=== PATIENT | male | born 1935 | race American Indian/Alaskan Native ===

== ENCOUNTER 2019-04-24 15:17 | Inpatient (IN) | payer OTHER ==
[2019-04-25] MEDS ORDERED: DEXTROSE 50% IN WATER (25GM) 50 ML SYRINGE IV PRN (22:18)
[2019-04-25] MEDS ORDERED: ACETAMINOPHEN 325 MG TAB PO PRN (22:18)
[2019-04-25] MEDS ORDERED: MAGNESIUM HYDROXIDE (MOM) ORAL LIQD UDC PO PRN (22:18)
[2019-04-25] MEDS ORDERED: ONDANSETRON 4 MG/2 ML INJ IV PRN (22:18)
[2019-04-25] MEDS ORDERED: SODIUM CHLORIDE 0.9% 1000 ML 1,000 ML IV SCH (22:30)
--- NOTE | 2019-04-25 23:38 | History and Physical Report ---
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 He has been transferred from [facility] after presenting to the facility with hematuria. Patient is said to be visiting family here from [place] and had been hospitalized in [place] 2 weeks prior to coming here. 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 He has had 3 sessions of hemodialysis at [facility] and his creatinine was about 2.6 as of 04/01/2019. He had presented with persistent hematuria and had undergone bladder irrigation and cystoscopy. Patient has dementia and could not give any good history most of the history was gotten from records sent from [facility] family members were not available during this history and physical. Past History Past Medical History: arthritis, diabetes, hypertension Social history: no significant social history Family history: no significant family history Medications and Allergies Active Meds: Active Medications Acetaminophen (Tylenol) 650 mg PO Q4H PRN PRN Reason: Pain MILD(1-3)/Fever >100.5/CARDENAS Dextrose (D50w (25gm) Syringe) 50 ml IV Q30MIN PRN; Protocol PRN Reason: Hypoglycemia Sodium Chloride (Nacl 0.9% 1000 Ml) 1,000 mls @ 100 mls/hr IV DIRECT FELIPE Magnesium Hydroxide (Milk Of Magnesia) 30 ml PO Q4H PRN PRN Reason: Constipation Morphine Sulfate (Morphine) 2 mg IV Q4H PRN PRN Reason: Pain, Moderate (4-6) Ondansetron HCl (Zofran) 4 mg IV Q8H PRN PRN Reason: Nausea And Vomiting Sodium Chloride (Sodium Chloride Flush Syringe 10 Ml) 10 ml IV BID FELIPE Sodium Chloride (Sodium Chloride Flush Syringe 10 Ml) 10 ml IV PRN PRN PRN Reason: LINE FLUSH Review of Systems Genitourinary Male: hematuria Exam - Constitutional General appearance: Present: no acute distress - EENT Eyes: Present: PERRL, EOM intact ENT: hearing intact, clear oral mucosa, dentition normal - Neck Neck: Present: supple, normal ROM - Respiratory Respiratory effort: normal Respiratory: bilateral: CTA - Cardiovascular Rhythm: regular Heart Sounds: Present: S1 & S2 - Extremities Extremities: no ischemia, pulses intact, pulses symmetrical, No edema Peripheral Pulses: within normal limits - Abdominal General gastrointestinal: Present: soft, non-tender, non-distended Male genitourinary: Present: normal (Mirza catheter in place) - Integumentary Integumentary: Present: clear, warm, dry - Musculoskeletal Musculoskeletal: strength equal bilaterally - Psychiatric Psychiatric: other (Appears confused) - Neurologic Neurologic: CNII-XII intact Assessment and Plan - Patient Problems (1) Hematuria Current Visit: Yes Status: Acute Plan to address problem: Patient has a Mirza catheter in place. Will irrigate bladder as needed. Patient will need urology evaluation and recommendation. (2) Prostate cancer Current Visit: Yes Status: Acute Plan to address problem: Patient has history of recurrent metastatic prostate cancer (3) Hypertension Current Visit: Yes Status: Acute Plan to address problem: Blood pressure stable we will continue routine home medications and monitor vital signs. (4) Diabetes mellitus Current Visit: Yes Status: Acute Plan to address problem: We will monitor Accu-Cheks. (5) Chronic kidney disease Current Visit: Yes Status: Acute Plan to address problem: Will monitor BUN and creatinine. Will consider nephrology input prior to discharge. (6) Full code status Current Visit: Yes Status: Acute
[2019-04-26 06:31] LABS: Hematocrit 27.5 % (35.5-45.6); Hemoglobin 8.8 gm/dl (11.8-15.2); Mean Corpuscular HGB Conc 32 % (32-34); Mean Corpuscular Volume 74 fl (84-94); Platelet Count 376 K/mm3 (140-440); Red Blood Count 3.73 M/mm3 (3.65-5.03)
[2019-04-26 06:35] LABS: Red Cell Distribution Width 26.5 % (13.2-15.2)
[2019-04-26 06:47] LABS: INR 1.59 (0.87-1.13)
[2019-04-26 06:48] LABS: Calcium 8.9 mg/dL (8.4-10.2); Partial Thromboplastin Time 39.2 Sec. (24.2-36.6)
[2019-04-26 08:55] LABS: Basophils % (Manual) 0 % (0.0-1.8); Total Cells Counted 100
[2019-04-26 08:56] LABS: Anisocytosis 3+; Hypochromasia 1+; Platelet Estimate Consistent w Auto; Target Cells Rare
[2019-04-26] MEDS: MORPHINE 2 MG/1 ML INJ IV PRN ×2 (11:12→22:14)
--- NOTE | 2019-04-26 12:49 | Consultation ---
History of Present Illness - Reason for Consult Consult date: 04/26/19 Sepsis Requesting physician: VERNON DARBY - History of Present Illness The patient is an 83-year-old male originally from [place] with history of dementia, advanced CKD had dialysis twice while in [place], metastatic prostate cancer, hypertension, failure to thrive was also on TPN while in [place] came in to the [facility] on 04/21/2019. Next day, family noticed hematuria and hence he was taken to [facility] and was hospitalized on 04/22/2019. Chest x-ray showed multiple cavitary lesions concerning for possible septic emboli versus other infectious etiology including atypical infections: Fungus and TB. Lab showed leukocytosis of 16.5K and creatinine elevation to 5.9. CT head did not show any lesions. His TPN related R subclavian central line was removed at [place], tip culture grew CoNS, blood cultures were negative for bacteria and fungi. Pt is nonverbal at this time and unable to provide history. History obtained from extensive chart review from outside records and talking to the patient's son at bedside. Review of Systems: non verbal, unable to provide history or ROS Past History Past Medical History: arthritis, diabetes, hypertension Social history: no significant social history Family history: no significant family history Medications and Allergies Allergies Allergy/AdvReac Type Severity Reaction Status Date / Time No Known Allergies Allergy Verified 04/26/19 03:55 Home Medications Medication Instructions Recorded Confirmed Last Taken Type Abiraterone Acetate (Nf) 1,000 mg PO DAILY 04/26/19 04/26/19 04/20/19 History Active Meds: Active Medications Acetaminophen (Tylenol) 650 mg PO Q4H PRN PRN Reason: Pain MILD(1-3)/Fever >100.5/CARDENAS Dextrose (D50w (25gm) Syringe) 50 ml IV Q30MIN PRN; Protocol PRN Reason: Hypoglycemia Sodium Chloride (Nacl 0.9% 1000 Ml) 1,000 mls @ 100 mls/hr IV DIRECT FELIPE Last Admin: 04/26/19 11:07 Dose: 100 mls/hr Documented by: Magnesium Hydroxide (Milk Of Magnesia) 30 ml PO Q4H PRN PRN Reason: Constipation Morphine Sulfate (Morphine) 2 mg IV Q4H PRN PRN Reason: Pain, Moderate (4-6) Last Admin: 04/26/19 11:12 Dose: 2 mg Documented by: Ondansetron HCl (Zofran) 4 mg IV Q8H PRN PRN Reason: Nausea And Vomiting Sodium Chloride (Sodium Chloride Flush Syringe 10 Ml) 10 ml IV BID FELIPE Last Admin: 04/26/19 11:22 Dose: 10 ml Documented by: Sodium Chloride (Sodium Chloride Flush Syringe 10 Ml) 10 ml IV PRN PRN PRN Reason: LINE FLUSH Physical Examination - Physical Exam Narrative exam: Physical Exam: Constitutional: drowsy, non verbal Head, Ears, Nose: Normocephalic, atraumatic. External ears, nose normal Eyes: Conjunctivae/corneas clear. No icterus. No ptosis. Neck: Supple, no meningeal signs Oral: dentition poor, no thrush Cardiovascular: S1, S2 normal Respiratory: Good air entry, clear to auscultation bilaterally GI: Soft, non-tender; bowel sounds normal. No peritoneal signs : Mirza + Musculoskeletal: No pedal edema, no cyanosis. Skin: No rash or abscess Hem/Lymphatic: No palpable cervical or supraclavicular nodes. No lymphangitis Psych: Mood ok. Affect normal Neurological: Awake, alert, oriented. No gross abnormality - Constitutional Vitals: Vital Signs Temp Pulse Resp BP Pulse Ox 97.8 F 106 H 18 101/51 99 04/26/19 05:05 04/26/19 00:32 04/26/19 05:05 04/26/19 05:05 04/26/19 00:32 Temperature -Last 24 Hours Temperature 97.8 F Results - Labs CBC & Chem 7: 04/26/19 05:49 04/26/19 05:49 Labs: Abnormal lab results 04/26/19 04/26/19 04/26/19 Range/Units 05:49 05:49 05:49 WBC 16.3 H (4.5-11.0) K/mm3 Hgb 8.8 L (11.8-15.2) gm/dl Hct 27.5 L (35.5-45.6) % MCV 74 L (84-94) fl MCH 24 L (28-32) pg RDW 26.5 H (13.2-15.2) % Seg Neuts % (Manual) 83.0 H (40.0-70.0) % Lymphocytes % (Manual) 11.0 L (13.4-35.0) % Seg Neutrophils # Man 13.5 H (1.8-7.7) K/mm3 PT 19.2 H (12.2-14.9) Sec. INR 1.59 H (0.87-1.13) APTT 39.2 H (24.2-36.6) Sec. Sodium 156 H (137-145) mmol/L Potassium 3.4 L (3.6-5.0) mmol/L Chloride 114.9 H (98-107) mmol/L Carbon Dioxide 14 L (22-30) mmol/L BUN 100 H (9-20) mg/dL Creatinine 7.7 H (0.8-1.5) mg/dL Assessment and Plan Cultures at [place]: 04/22/2019 Blood culture: No growth 04/22/2019 fungal blood culture: No growth 04/23/2019 Blood culture: No growth 04/23/2019 catheter tip culture: 15 or more colonies of Staphylococcus hemolyticus 04/23/2019 urine culture: No growth 04/22/2019 serum cryptococcal antigen: Negative Cultures here: None yet A/P: 83-year-old male originally from [facility] with history of dementia, advanced CKD had dialysis twice while in [facility], metastatic prostate cancer, hypertension, failure to thrive was also on TPN while in [facility] came in to the [facility] on 04/21/2019. Next day, family noticed hematuria and hence he was taken to [facility] and was hospitalized on 04/22/2019, transfered here on 03/2019. ID consulted for ?sepsis. 1) Multiple cavitary lung nodules: ?septic emboli v/s infectious v/s mets. Of note, patient had a TPN central line (R subclavian) which was removed while at [place]. TTE at [place] unremarkable. Blood cultures also negative. 2) Acute v/s subacute progressive encephalopathy: has baseline dementia. Multiple etiologies possible. Sodium is high, creatinine also high. 3) Leucocytosis: persistent, does not seem to have responded to broad spectrum antibiotic therapy 4) Acute renal failure on CKD: ?component of obstructive uropathy as well as medical renal disease. Apparently was dialyzed twice in [facility]. 5) Metastatic prostate cancer Recs: repeat blood and urine cultures here empiric renally adjusted Cefepime and Vancomycin continue airborne isolation TB IGRA ordered may need pulmonary to do a bronch to rule out TB since patient is unlikely to produce any sputums MRI brain without contrast CXR ordered Jaime Bowens MD, FACP [facility] C: [phone] O: [phone] F: [phone]
[2019-04-26] MEDS ORDERED: VANCOMYCIN PHARMACY TO DOSE IV SCH (13:00)
--- NOTE | 2019-04-26 14:11 | Consultation ---
History of Present Illness - Reason for Consult acute renal failure - History of Present Illness This is an 83-year-old [place] male with a past medical history significant for metastatic prostate cancer hypertension and chronic kidney disease in the setting of obstructive uropathy who presented to the emergency department as a transfer from [place]. Nephrology is being asked to see patient secondary to acute on chronic kidney disease. As mentioned he does have a history of obstructive uropathy and had recent CT scan confirming moderate to severe bilateral hydronephrosis. Per patient's son who is the historian at this time he stated that the plan at [place] was to undergo an nephrostomy tube placement bilaterally in order for relief of the aforementioned bilateral severe hydronephrosis. Per notes that we have here it seems that his baseline creatinine is about 2.6 back in March 2019. Patient is a very poor historian and is significantly cachectic and with severe malnutrition and failure to thrive. The majority of the history was obtained by review of the medical records along with discussions with his son who is at bedside at this time. There have also been noticing recurrent gross hematuria that is likely in the setting of metastatic prostate cancer with evidence of metastasis to the bladder as well along with bone. Patient has an indwelling Mirza at this time but the Mirza is showing blood-tinged urine. Per patient's son he does not remember them doing a Arnold drip while at the previous hospital. He did have a previous right-sided PICC line that was removed in the setting of worsening leukocytosis and fever. The tip of the catheter had been growing coagulase-negative staph. This PICC line was initially placed secondary to TPN needs. Early on IV fluids here in our hospital. Past History Past Medical History: arthritis, diabetes, hypertension Social history: no significant social history Family history: no significant family history Medications and Allergies Allergies Allergy/AdvReac Type Severity Reaction Status Date / Time No Known Allergies Allergy Verified 04/26/19 03:55 Home Medications Medication Instructions Recorded Confirmed Last Taken Type Abiraterone Acetate (Nf) 1,000 mg PO DAILY 04/26/19 04/26/19 04/20/19 History B Complex 1 tab PO BID 04/26/19 04/26/19 Unknown History Cefepime 1 gram IV Q24H 04/26/19 04/26/19 Unknown History Flomax 0.4 mg PO DAILY 04/26/19 04/26/19 Unknown History Lactated Ringers 100 ml IV CONT 04/26/19 04/26/19 Unknown History Lidocaine 1 patch TD Q24H 04/26/19 04/26/19 Unknown History Metronidazole 500 mg IV Q8H 04/26/19 04/26/19 Unknown History Tylenol 650 mg PO PRN 04/26/19 04/26/19 Unknown History Tylenol 650 mg IA PRN 04/26/19 04/26/19 Unknown History Active Meds: Active Medications Acetaminophen (Tylenol) 650 mg PO Q4H PRN PRN Reason: Pain MILD(1-3)/Fever >100.5/CARDENAS Dextrose (D50w (25gm) Syringe) 50 ml IV Q30MIN PRN; Protocol PRN Reason: Hypoglycemia Sodium Chloride (Nacl 0.9% 1000 Ml) 1,000 mls @ 100 mls/hr IV DIRECT FELIPE Last Admin: 04/26/19 11:07 Dose: 100 mls/hr Documented by: Cefepime HCl (Cefepime/Ns 1 Gm/100 Ml) 1 gm in 100 mls @ 200 mls/hr IV Q24HR@1600 FELIPE; Protocol Vancomycin HCl 1,250 mg/ (Sodium Chloride) 275 mls @ 166.667 mls/hr IV ONCE ONE Stop: 04/26/19 16:08 Magnesium Hydroxide (Milk Of Magnesia) 30 ml PO Q4H PRN PRN Reason: Constipation Morphine Sulfate (Morphine) 2 mg IV Q4H PRN PRN Reason: Pain, Moderate (4-6) Last Admin: 04/26/19 11:12 Dose: 2 mg Documented by: Ondansetron HCl (Zofran) 4 mg IV Q8H PRN PRN Reason: Nausea And Vomiting Sodium Chloride (Sodium Chloride Flush Syringe 10 Ml) 10 ml IV BID FELIPE Last Admin: 04/26/19 11:22 Dose: 10 ml Documented by: Sodium Chloride (Sodium Chloride Flush Syringe 10 Ml) 10 ml IV PRN PRN PRN Reason: LINE FLUSH Review of Systems ROS unobtainable: due to mental status Exam - Vital Signs Vital signs: Vital Signs Resp Pulse Ox 20 95 04/26/19 00:20 04/26/19 00:20 - General Appearance General appearance: cachectic, chronically ill, frail EENT: ATNC Neck: Present: neck supple, trachea midline Respiratory: Clear to Ascultation Heart: regular, S1S2 Gastrointestinal: Present: normal Integumentary: no rash Neurologic: confused, disoriented Musculoskeletal: Present: deferred Psychiatric: other (lethargic) Results - Lab Results 04/26/19 05:49 04/26/19 05:49 Most recent lab results Calcium 8.9 mg/dL (8.4-10.2) 04/26/19 05:49 Assessment and Plan - Patient Problems (1) Acute kidney injury superimposed on chronic kidney disease Current Visit: Yes Status: Acute Plan to address problem: Likely in the setting of obstructive uropathy combined with significant prerenal injury in this cachectic elderly individual with significant malnutrition and failure to thrive. Continue with current plan which includes adequate IV fluid hydration, avoidance of nephrotoxins, and maintenance of map above 65 mmHg. Discussed with our primary attending and my plan would be to suggest interventional radiology consultation for likely need of bilateral nephrostomy tube placement in order to decompress the aforementioned severe bilateral hydronephrosis. My hope is that this will help with improving renal clearance so as to be able to avoid hemodialysis in this patient. 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 Recommend interventional radiology consultation for placement of bilateral nephrostomy tubes. (3) Hypernatremia Current Visit: Yes Status: Acute Plan to address problem: Likely as a consequence of free water deficit and dehydration. Continue with current IV fluid hydration. Will follow up with next set of labs tomorrow morning. 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 Continue to monitor closely. May benefit from urology consultation. (5) Adult failure to thrive Current Visit: Yes Status: Acute Plan to address problem: Recommend to have dietitian see patient and evaluate. Was previously on TPN. Continue with current IV fluid hydration.
[2019-04-26] MEDS ORDERED: VANCOMYCIN 1,250 MG in SODIUM CHLORIDE 0.9% 250ML 250 ML IV ONE (14:30)
[2019-04-26] MEDS ORDERED: METRONIDAZOLE 500 MG IV SCH (14:45)
[2019-04-26] MEDS ORDERED: LACTATED RINGERS IV SCH (14:45)
[2019-04-26] MEDS ORDERED: LIDOCAINE TD SCH (14:45)
--- NOTE | 2019-04-26 15:04 | XRay Report ---
CHEST 1 VIEW INDICATION: cavitary pneumonia. COMPARISON: None FINDINGS: Support devices: None. Heart: Within normal limits. Lungs/Pleura: There are mild chronic interstitial changes throughout both lungs. There is subtle airs pace opacity in the left midlung laterally which could represent an early infiltrate. No cavitary pul monary lesion is appreciated. Calcified granuloma in the mid right lung is noted. No pleural effusion or pneumothorax is appreciated. Additional findings: Osteopenia. There also appears to be soft tissue ulceration in the left axillary soft tissues. IMPRESSION: Chronic interstitial changes. Questionable left lung opacity as described. Suggestion of skin ulcera tion in the left axillary region, correlate with the patient. Consider further evaluation with CT [address] with contrast if needed. Signer Name: Bi Sandra Jr, MD Signed: 04/26/2019 3:00 PM Workstation Name: [id number]
[2019-04-26] MEDS ORDERED: LACTATED RINGERS 1,000 ML IV SCH (16:00)
[2019-04-26] MEDS: CEFEPIME/NS 1 GM/100 ML 1 GM/100 ML BAG IV SCH (16:41)
[2019-04-26] MEDS: metroNIDAZOLE/NS 500 MG/100 ML 500 MG/100 ML BAG IV SCH ×2 (16:42→22:14)
[2019-04-26] MEDS: ACETATE PO SCH (17:02)
[2019-04-26] MEDS: ABIRATERONE PO SCH (17:02)
--- NOTE | 2019-04-26 17:23 | Progress Note ---
Assessment and Plan Assessment and plan: Patient is a 83-year-old male originally from [facility] with history of dementia, advanced CKD had dialysis twice while in [place], metastatic prostate cancer, hypertension, failure to thrive was also on TPN while in [place] came in to the [facility] on 04/21/2019. Next day, family noticed hematuria and hence he was taken to [facility] and was hospitalized on 04/22/2019, transferred here on 04/25/2019 secondary to Enviromental crisis at [place] forcing the facility to transfer all inpatients. ID consulted for ?sepsis. cxr: 04/26/19 Chronic interstitial changes. Questionable left lung opacity as described. Suggestion of skin ulceration in the left axillary region, correlate with the patient. Consider further evaluation with CT chest with contrast if needed. * Review of records from [place] shows that the patient had a 1.0 x 1.1 cm right thyroid nodule. There is also on imaging studies including CT of the chest multiple bilateral scattered ill-defined pulmonary nodules surrounded by groundglass opacities many of the nodules are cavitary component it was discussed that the findings were concerning for multifocal infection possibly secondary to septic emboli from cavitary organism including atypical and fungal organisms. * Work-up at [place] included vancomycin which was started on 04 22 with blood culture drawn prior to initiation of the antibiotics subsequently antibiotics was changed from Zosyn to cefepime and Flagyl on 04 22 due to renal function ab normalities. Patient remained n.p.o. for speech evaluation due to aspiration precautions and was placed on airborne precaution. * Creatinine was also noted to be elevated at 5.9 with prior creatinine being 2.6 in March 2019 there was concern of possible obstructive uropathy from prostate malignancy along with breathing renal versus ATN from poor p.o. intake. * Hematuria which was noted was thought to be secondary to prostate cancer * Elevated alk phos was also noted concerning for mets to the bone * He did have a previous right-sided PICC line that was removed in the setting of worsening leukocytosis and fever. The tip of the catheter had been growing coagulase-negative staph. This PICC line was initially placed secondary to TPN needs. Early on IV fluids here in our hospital. Sepsis: POA- Continue abx therapy and ID input at this time Multiple cavitary lung nodules: ?septic emboli v/s infectious v/s mets. DM with Hyperglycemia Hypernatremia Hypokalemia Acute v/s subacute progressive encephalopathy: has baseline dementia. Leukocytosis Acute renal failure on CKD Obstructive uropathy Metastatic prostate cancer/Gross Hematuria Failure to thrive Generalized body pain Plan Continue supportive care Discussed poor prognosis with son Pulmonary, ID, Nephrology consulted continue empiric antibiotic, place patient about isolation, may obtain pulmonary consultation. Will follow AFB cultures from [facility] Continue to monitor Awaiting Brain MRI IR also consulted for evaluation for possible Nephrostomy tube Gynecology Teacher consult Pain control Will consult Oncologist, Urology outpatient dvt/gi prophy History Interval history: Patient seen and examined, very lethargic, warm to the touch, moans, encephalopathic, but no gross shortness of breath Hospitalist Physical - Physical exam Narrative exam: VITAL SIGNS: Reviewed. GENERAL: The patient appears chronically ill, encephalopathic, cachectic moans and groans., Vital signs as documented. HEAD: No signs of head trauma. EYES: Pupils are equal. Extraocular motions intact. EARS: Hearing grossly intact. MOUTH: Oropharynx is normal. NECK: No adenopathy, no JVD. CHEST: Chest with clear breath sounds bilaterally. No wheezes, rales, or rhonchi. CARDIAC: Regular rate and rhythm. S1 and S2, without murmurs, gallops, or rubs. VASCULAR: No Edema. Peripheral pulses normal and equal in all extremities. ABDOMEN: Soft, non tender and non distended. No rebound or guarding, and no masses palpated. Bowel Sounds normal. MUSCULOSKELETAL: Good range of motion of all major joints. Extremities without clubbing, cyanosis or edema. NEUROLOGIC EXAM: Disoriented awake not following any commands. PSYCHIATRIC: Mood normal. SKIN: Warm to the touch, Mirza catheter in place, detail exam as documented in skin assessment - Constitutional Vitals: Temp Pulse Resp BP Pulse Ox 97.9 F 111 H 20 129/63 95 04/26/19 12:42 04/26/19 12:42 04/26/19 12:42 04/26/19 12:42 04/26/19 12:42 General appearance: Present: no acute distress Results - Labs CBC & Chem 7: 04/26/19 05:49 04/26/19 05:49 Labs: Laboratory Last Values WBC 16.3 K/mm3 (4.5-11.0) H 04/26/19 05:49 RBC 3.73 M/mm3 (3.65-5.03) 04/26/19 05:49 Hgb 8.8 gm/dl (11.8-15.2) L 04/26/19 05:49 Hct 27.5 % (35.5-45.6) L 04/26/19 05:49 MCV 74 fl (84-94) L 04/26/19 05:49 MCH 24 pg (28-32) L 04/26/19 05:49 MCHC 32 % (32-34) 04/26/19 05:49 RDW 26.5 % (13.2-15.2) H 04/26/19 05:49 Plt Count 376 K/mm3 (140-440) 04/26/19 05:49 Add Manual Diff Complete 04/26/19 05:49 Total Counted 100 04/26/19 05:49 Seg Neuts % (Manual) 83.0 % (40.0-70.0) H 04/26/19 05:49 Band Neutrophils % 0 % 04/26/19 05:49 Lymphocytes % (Manual) 11.0 % (13.4-35.0) L 04/26/19 05:49 Reactive Lymphs % (Man) 0 % 04/26/19 05:49 Monocytes % (Manual) 5.0 % (0.0-7.3) 04/26/19 05:49 Eosinophils % (Manual) 1.0 % (0.0-4.3) 04/26/19 05:49 Basophils % (Manual) 0 % (0.0-1.8) 04/26/19 05:49 Metamyelocytes % 0 % 04/26/19 05:49 Myelocytes % 0 % 04/26/19 05:49 Promyelocytes % 0 % 04/26/19 05:49 Blast Cells % 0 % 04/26/19 05:49 Nucleated RBC % Not Reportable 04/26/19 05:49 Seg Neutrophils # Man 13.5 K/mm3 (1.8-7.7) H 04/26/19 05:49 Band Neutrophils # 0.0 K/mm3 04/26/19 05:49 Lymphocytes # (Manual) 1.8 K/mm3 (1.2-5.4) 04/26/19 05:49 Abs React Lymphs (Man) 0.0 K/mm3 04/26/19 05:49 Monocytes # (Manual) 0.8 K/mm3 (0.0-0.8) 04/26/19 05:49 Eosinophils # (Manual) 0.2 K/mm3 (0.0-0.4) 04/26/19 05:49 Basophils # (Manual) 0.0 K/mm3 (0.0-0.1) 04/26/19 05:49 Metamyelocytes # 0.0 K/mm3 04/26/19 05:49 Myelocytes # 0.0 K/mm3 04/26/19 05:49 Promyelocytes # 0.0 K/mm3 04/26/19 05:49 Blast Cells # 0.0 K/mm3 04/26/19 05:49 WBC Morphology Not Reportable 04/26/19 05:49 Hypersegmented Neuts Not Reportable 04/26/19 05:49 Hyposegmented Neuts Not Reportable 04/26/19 05:49 Hypogranular Neuts Not Reportable 04/26/19 05:49 Smudge Cells Not Reportable 04/26/19 05:49 Toxic Granulation Not Reportable 04/26/19 05:49 Toxic Vacuolation Not Reportable 04/26/19 05:49 Dohle Bodies Not Reportable 04/26/19 05:49 Pelger-Huet Anomaly Not Reportable 04/26/19 05:49 Félix Rods Not Reportable 04/26/19 05:49 Platelet Estimate Consistent w auto 04/26/19 05:49 Clumped Platelets Not Reportable 04/26/19 05:49 Plt Clumps, EDTA Not Reportable 04/26/19 05:49 Large Platelets Not Reportable 04/26/19 05:49 Giant Platelets Not Reportable 04/26/19 05:49 Platelet Satelliting Not Reportable 04/26/19 05:49 Plt Morphology Comment Not Reportable 04/26/19 05:49 RBC Morphology Not Reportable 04/26/19 05:49 Dimorphic RBCs Not Reportable 04/26/19 05:49 Polychromasia Not Reportable 04/26/19 05:49 Hypochromasia 1+ 04/26/19 05:49 Poikilocytosis Not Reportable 04/26/19 05:49 Anisocytosis 3+ 04/26/19 05:49 Microcytosis 1+ 04/26/19 05:49 Macrocytosis Not Reportable 04/26/19 05:49 Spherocytes Not Reportable 04/26/19 05:49 Pappenheimer Bodies Not Reportable 04/26/19 05:49 Sickle Cells Not Reportable 04/26/19 05:49 Target Cells Rare 04/26/19 05:49 Tear Drop Cells Not Reportable 04/26/19 05:49 Ovalocytes Not Reportable 04/26/19 05:49 Helmet Cells Not Reportable 04/26/19 05:49 Williamson-Van Meter Bodies Not Reportable 04/26/19 05:49 Alden Rings Not Reportable 04/26/19 05:49 [place] Cells Not Reportable 04/26/19 05:49 Bite Cells Not Reportable 04/26/19 05:49 Crenated Cell Not Reportable 04/26/19 05:49 Elliptocytes Not Reportable 04/26/19 05:49 Acanthocytes (Spur) Not Reportable 04/26/19 05:49 Rouleaux Not Reportable 04/26/19 05:49 Hemoglobin C Crystals Not Reportable 04/26/19 05:49 Schistocytes Not Reportable 04/26/19 05:49 Malaria parasites Not Reportable 04/26/19 05:49 Tayo Bodies Not Reportable 04/26/19 05:49 Hem Pathologist Commnt No 04/26/19 05:49 PT 19.2 Sec. (12.2-14.9) H 04/26/19 05:49 INR 1.59 (0.87-1.13) H 04/26/19 05:49 APTT 39.2 Sec. (24.2-36.6) H 04/26/19 05:49 Sodium 156 mmol/L (137-145) H 04/26/19 05:49 Potassium 3.4 mmol/L (3.6-5.0) L 04/26/19 05:49 Chloride 114.9 mmol/L (98-107) H 04/26/19 05:49 Carbon Dioxide 14 mmol/L (22-30) L 04/26/19 05:49 Anion Gap 31 mmol/L 04/26/19 05:49 BUN 100 mg/dL (9-20) H 04/26/19 05:49 Creatinine 7.7 mg/dL (0.8-1.5) H 04/26/19 05:49 Estimated GFR 8 ml/min 04/26/19 05:49 BUN/Creatinine Ratio 13 % 04/26/19 05:49 Glucose 98 mg/dL (75-100) 04/26/19 05:49 POC Glucose 97 (70-105) 04/26/19 16:32 Calcium 8.9 mg/dL (8.4-10.2) 04/26/19 05:49 Active Medications - Current Medications Current Medications: Generic Name Dose Route Start Last Admin Trade Name Freq PRN Reason Stop Dose Admin Acetaminophen 650 mg 04/25/19 22:18 Tylenol PO Q4H PRN Pain MILD(1-3)/Fever >100.5/CARDENAS Dextrose 50 ml 04/25/19 22:18 D50w (25gm) Syringe IV Q30MIN PRN Hypoglycemia Protocol Cefepime HCl 1 gm in 100 mls @ 200 mls/hr 04/26/19 15:00 04/26/19 16:41 Cefepime/Ns 1 Gm/100 Ml IV 200 mls/hr Q24HR@1600 FELIPE Administration Protocol Metronidazole 500 mg in 100 mls @ 100 mls/hr 04/26/19 15:00 04/26/19 16:42 Flagyl 500 Mg/100 Ml IV 100 mls/hr Q8HR FELIPE Administration Lactated Ringer's 1,000 mls @ 100 mls/hr 04/26/19 16:00 Lactated Ringers IV DIRECT FELIPE Lidocaine 1 each 04/27/19 10:00 Lidoderm 5% TD QDAY FELIPE Magnesium Hydroxide 30 ml 04/25/19 22:18 Milk Of Magnesia PO Q4H PRN Constipation Morphine Sulfate 2 mg 04/25/19 22:18 04/26/19 11:12 Morphine IV 2 mg Q4H PRN Administration Pain, Moderate (4-6) Ondansetron HCl 4 mg 04/25/19 22:18 Zofran IV Q8H PRN Nausea And Vomiting Sodium Chloride 10 ml 04/26/19 10:00 04/26/19 11:22 Sodium Chloride Flush Syringe 10 Ml IV 10 ml BID FELIPE Administration Sodium Chloride 10 ml 04/25/19 22:18 Sodium Chloride Flush Syringe 10 Ml IV PRN PRN LINE FLUSH Tamsulosin HCl 0.4 mg 04/26/19 18:00 Flomax PO QPM FELIPE Vitamin B Complex/Vitamin C 1 each 04/26/19 22:00 Allbee With C PO BID FELIPE Nutrition/Malnutrition Assess - Dietary Evaluation Nutrition/Malnutrition Findings: Nutrition Notes Start: 04/26/19 10:43 Freq: Status: Active Protocol: Document 04/26/19 10:43 CT (Rec: 04/26/19 11:26 CT [id number]) Co-Sign 04/26/19 10:43 LP Nutrition Notes Need for Assessment generated from: wrister,MST,Low BMI Initial or Follow up Assessment Current Diagnosis CKD(stage I-IV),Diabetes, Hypertension Other Pertinent Diagnosis prostate cancer, hematuria, arthritis, dementia, poss TB Current Diet cardiac/consistent CHO Labs/Tests Na 156 K 3.4 Cl 114.9 BUN 100 Cr 7.7 Pertinent Medications NS 100 ml/hr Height 6 ft 3 in Weight 63 kg Usual Body Weight 81.647 kg [place] Body Weight (kg) 89.09 BMI 17.3 Intake Prior to Admission Poor Weight change and time frame 22.8% within 6 months Weight Status Underweight Subjective/Other Information Pt is on airbornne precautions d/t poss TB. Called room and pt family member reported that pt UBW is 180 lbs and that the pt has lost around 40 lbs over a 6 month time frame . 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 Pt family member stated that the pt has issues swallowing. Called RN to order speech consult. Told pt family member that we will order Ensure for pt and a mechanical soft diet until speech consult. 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 No Is Patient Ambulatory and/or Out of Bed No REE-([facility]-confined to bed) 1694.064 Kcal/Kg value to use for calculation 35 Approximate Energy Requirements Using 2205 kcal/Kg Calculation Used for Recommendations Kcal/kg Additional Notes Protein needs: 76-95g/kg/day ( 1.2-1.5 g/kg/day) Fluid needs: 1 ml/kcal/day Nutrition Intervention Change Diet Order: Add mechanical soft modification to cardiac/ consistent CHO Add Supplement/Snack (indicate name/kcal Add Ensure BID any flavor /protein ) Provides kCal: 700 Provides Protein (gm) 40 Goal #1 Meet >75% of energy and protein needs Goal #2 wt gain/maintenance Anticipated Discharge Needs: unable to determine at this time Follow-Up By: 04/30/19 Additional Comments Follow up for SOCIAL MEDIA SPECIALIST recommendations and PO/ONS intakes
--- NOTE | 2019-04-26 18:01 | Event Note ---
Date: 04/26/19 Consulted for possible nephrostomy tube. Patient was transferred due to issues at [facility], although none of his CDs were transferred with him. Will need to obtain another CT of the abdomen and pelvis without contrast. Will make patient NPO after MN except sips of water with meds. Given underlying metastatic prostate cancer with dementia, ?hospice patient? Will see patient tomorrow.
[2019-04-26] MEDS: TAMSULOSIN 0.4 MG CAP PO SCH (18:36)
[2019-04-26] MEDS ORDERED: B COMPLEX PO SCH (22:00)
[2019-04-26] MEDS: B COMPLEX W/VITAMIN C TAB PO SCH (22:16)
[2019-04-27 05:34] LABS: Hematocrit 25.4 % (35.5-45.6); Hemoglobin 7.9 gm/dl (11.8-15.2); Mean Corpuscular HGB Conc 31 % (32-34); Mean Corpuscular Volume 74 fl (84-94); Platelet Count 358 K/mm3 (140-440); Red Blood Count 3.44 M/mm3 (3.65-5.03)
[2019-04-27 05:36] LABS: Red Cell Distribution Width 26.3 % (13.2-15.2)
[2019-04-27 05:50] LABS: Albumin 2.3 g/dL (3.9-5); BUN/Creatinine Ratio 11; Blood Urea Nitrogen 109 mg/dL (9-20); Calcium 9.1 mg/dL (8.4-10.2); Hemolysis Index 0
[2019-04-27 05:59] LABS: Alanine Aminotransferase < 5 units/L (7-56)
[2019-04-27] MEDS: metroNIDAZOLE/NS 500 MG/100 ML 500 MG/100 ML BAG IV SCH ×3 (06:17→21:08)
--- NOTE | 2019-04-27 08:31 | Progress Note ---
Assessment and Plan - Patient Problems (1) Acute kidney injury superimposed on chronic kidney disease Current Visit: Yes Status: Acute Plan to address problem: Likely in the setting of obstructive uropathy combined with significant prerenal injury in this cachectic elderly individual with significant malnutrition and failure to thrive. Continue with current plan which includes adequate IV fluid hydration, avoidance of nephrotoxins, and maintenance of map above 65 mmHg. Discussed with our primary attending and my plan would be to suggest interventional radiology consultation for likely need of bilateral nephrostomy tube placement in order to decompress the aforementioned severe bilateral hydronephrosis. My hope is that this will help with improving renal clearance so as to be able to avoid hemodialysis in this patient. Pending CT scan of the abdomen and pelvis today for reevaluation of the aforementioned hydronephrosis. Intervention radiology note reviewed. 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 Recommend interventional radiology consultation for placement of bilateral nephrostomy tubes. Interventional radiology assessment reviewed. Plan for repeat CT scan of the abdomen and pelvis. (3) Hypernatremia Current Visit: Yes Status: Acute Plan to address problem: Likely as a consequence of free water deficit and dehydration. Continue with current IV fluid hydration. We will change IV fluid solution to D5 half-normal saline. 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 Continue to monitor closely. May benefit from urology consultation. (5) Adult failure to thrive Current Visit: Yes Status: Acute Plan to address problem: Recommend to have dietitian see patient and evaluate. Was previously on TPN. Continue with current IV fluid hydration. Subjective Date of service: 04/27/19 Interval history: Patient remains in isolation for TB precautions. Unable to get CT scan secondary to aforementioned respiratory isolation status. Labs reviewed. Objective - Vital Signs Vital signs: Vital Signs - 12hr 04/26/19 04/27/19 04/27/19 22:03 01:45 05:16 Temperature 98.1 F 98.8 F Respiratory 16 20 20 Rate Blood Pressure 121/54 139/70 - General Appearance General appearance: cachectic, chronically ill, frail EENT: ATNC, PERRL Neck: no JVD, no thyromegaly Respiratory: Present: Ronchi Cardiology: regular, S1S2 Gastrointestinal: normal Integumentary: warm and dry Neurologic: confused, disoriented Musculoskeletal: deferred Psychiatric: agitated - Lab 04/27/19 05:02 04/27/19 05:02 Most recent lab results Calcium 9.1 mg/dL (8.4-10.2) 04/27/19 05:02 - Allied health notes Allied health notes reviewed: nursing Medications & Allergies - Medications Allergies/Adverse Reactions: Allergies No Known Allergies Allergy (Verified 04/26/19 03:55) Home Medications: Home Medications Medication Instructions Recorded Confirmed Last Taken Type Abiraterone Acetate (Nf) 1,000 mg PO DAILY 04/26/19 04/26/19 04/20/19 History B Complex 1 tab PO BID 04/26/19 04/26/19 Unknown History Cefepime 1 gram IV Q24H 04/26/19 04/26/19 Unknown History Flomax 0.4 mg PO DAILY 04/26/19 04/26/19 Unknown History Lactated Ringers 100 ml IV CONT 04/26/19 04/26/19 Unknown History Lidocaine 1 patch TD Q24H 04/26/19 04/26/19 Unknown History Metronidazole 500 mg IV Q8H 04/26/19 04/26/19 Unknown History Tylenol 650 mg PO PRN 04/26/19 04/26/19 Unknown History Tylenol 650 mg [place] PRN 04/26/19 04/26/19 Unknown History Active Medications: Generic Name Dose Route Start Last Admin Trade Name Freq PRN Reason Stop Dose Admin Acetaminophen 650 mg 04/25/19 22:18 Tylenol PO Q4H PRN Pain MILD(1-3)/Fever >100.5/CARDENAS Dextrose 50 ml 04/25/19 22:18 D50w (25gm) Syringe IV Q30MIN PRN Hypoglycemia Protocol Cefepime HCl 1 gm in 100 mls @ 200 mls/hr 04/26/19 15:00 04/26/19 16:41 Cefepime/Ns 1 Gm/100 Ml IV 200 mls/hr Q24HR@1600 FELIPE Administration Protocol Metronidazole 500 mg in 100 mls @ 100 mls/hr 04/26/19 15:00 04/27/19 06:17 Flagyl 500 Mg/100 Ml IV 100 mls/hr Q8HR FELIPE Administration Lactated Ringer's 1,000 mls @ 100 mls/hr 04/26/19 16:00 04/27/19 00:21 Lactated Ringers IV 100 mls/hr DIRECT FELIPE Administration Lidocaine 1 each 04/27/19 10:00 Lidoderm 5% TD QDAY FELIPE Magnesium Hydroxide 30 ml 04/25/19 22:18 Milk Of Magnesia PO Q4H PRN Constipation Morphine Sulfate 2 mg 04/25/19 22:18 04/26/19 22:14 Morphine IV 2 mg Q4H PRN Administration Pain, Moderate (4-6) Ondansetron HCl 4 mg 04/25/19 22:18 Zofran IV Q8H PRN Nausea And Vomiting Sodium Chloride 10 ml 04/26/19 10:00 04/26/19 22:14 Sodium Chloride Flush Syringe 10 Ml IV 10 ml BID FELIPE Administration Sodium Chloride 10 ml 04/25/19 22:18 Sodium Chloride Flush Syringe 10 Ml IV PRN PRN LINE FLUSH Tamsulosin HCl 0.4 mg 04/26/19 18:00 04/26/19 18:36 Flomax PO Not Given QPM FELIPE Vitamin B Complex/Vitamin C 1 each 04/26/19 22:00 04/26/19 22:16 Allbee With C PO Not Given BID FELIPE
--- NOTE | 2019-04-27 08:43 | Event Note ---
Date: 04/27/19 [id number]
[2019-04-27] MEDS: LIDOCAINE 5% 1 EACH PATCH TD SCH (09:24)
[2019-04-27] MEDS: D5W/0.45% NACL 1,000 ML IV SCH ×2 (09:25→21:10)
[2019-04-27] MEDS ORDERED: NON-FORMULARY EACH (Flomax 0.4 MG) PO SCH (10:00)
[2019-04-27] MEDS ORDERED: ABIRATERONE ACETATE 1000 MG PO SCH (10:00)
[2019-04-27] MEDS: B COMPLEX W/VITAMIN C TAB PO SCH ×2 (11:42→21:09)
[2019-04-27] MEDS: ACETATE PO SCH (11:43)
[2019-04-27] MEDS: ABIRATERONE PO SCH (11:43)
--- NOTE | 2019-04-27 13:14 | Nuclear Medicine Report ---
NUCLEAR MEDICINE PERFUSION LUNG SCAN INDICATION / CLINICAL INFORMATION: pulmonary embolism. Cavitary pneumonia. Shortness of breath. Possible TB. TECHNIQUE: 5.5 mCi of Tc-99m MAA were given by IV. COMPARISON: Chest radiograph dated 04/26/19. FINDINGS: PERFUSION: There is a nonsegmental perfusion defect in the periphery of the mid left lung correspondi ng to radiographic density. No significant perfusion defect. ADDITIONAL FINDINGS: None. IMPRESSION: 1. Low probability for pulmonary embolism. Signer Name: Jena Murphy MD Signed: 04/27/2019 1:10 PM Workstation Name: [id number]
--- NOTE | 2019-04-27 13:18 | Cat Scan Report ---
CT ABDOMEN AND PELVIS WITHOUT CONTRAST HISTORY: hydronephrosis, metastatic prostate cancer. COMPARISON: None available TECHNIQUE: Helical CT images of the abdomen and pelvis were obtained without administration of intrav enous contrast. Sagittal and coronal reformatted images were reviewed. All CT scans at this location are performed using CT dose reduction for ALARA by means of automated exposure control. FINDINGS: Abdomen/pelvis: A Mirza catheter is in the bladder. There appears to be severe diffuse bladder wall thickening or diffuse mass throughout the bladder. There is mild to moderate bilateral hydronephrosis . No obstructing lesion is identified in the distal ureters. The kidneys are unremarkable otherwise. The unenhanced CT appearance of the liver, biliary system, pancreas, spleen and adrenal glands are wi thin normal limits. No evidence for bowel obstruction or focal inflammation. The appendix is not confidently identified. There are diffuse aortic and iliac calcifications. No aneurysm. A few mildly enlarged bilateral iliac and left para-aortic lymph nodes are suspected measuring up to 2 cm concerning for metastatic diseas e. Lungs/bones: Heart size is within normal limits. An indeterminate 8 mm nodular density is noted in t he lateral right middle lobe. A 1 cm partially calcified nodules noted in the medial right middle lob e. Trace right pleural effusion is also identified. There are multiple tiny blastic lesions throughou t the lumbar spine and pelvis consistent with metastatic bone lesions. IMPRESSION: Mild to moderate bilateral hydronephrosis with abnormal bladder as described. No acute inflammatory process is identified in the abdomen or pelvis. Mildly enlarged retroperitoneal lymph nodes and scattered blastic bony lesions are consistent with me tastatic disease. Questionable right lower lung nodular densities. Signer Name: Bi Sandra Jr, MD Signed: 04/27/2019 12:42 PM Workstation Name: [id number]
--- NOTE | 2019-04-27 13:35 | Consultation ---
History of Present Illness Consult date: 04/27/19 Requesting physician: VERNON DARBY Reason for consult: other (Possible TB) History of present illness: PCCM Consult Note (Full dictation # ) Please see dictated notes for full details Past History Past Medical History: arthritis, diabetes, hypertension Social history: no significant social history Family history: no significant family history Medications and Allergies Allergies Allergy/AdvReac Type Severity Reaction Status Date / Time No Known Allergies Allergy Verified 04/26/19 03:55 Home Medications Medication Instructions Recorded Confirmed Last Taken Type Abiraterone Acetate (Nf) 1,000 mg PO DAILY 04/26/19 04/26/19 04/20/19 History B Complex 1 tab PO BID 04/26/19 04/26/19 Unknown History Cefepime 1 gram IV Q24H 04/26/19 04/26/19 Unknown History Flomax 0.4 mg PO DAILY 04/26/19 04/26/19 Unknown History Lactated Ringers 100 ml IV CONT 04/26/19 04/26/19 Unknown History Lidocaine 1 patch TD Q24H 04/26/19 04/26/19 Unknown History Metronidazole 500 mg IV Q8H 04/26/19 04/26/19 Unknown History Tylenol 650 mg PO PRN 04/26/19 04/26/19 Unknown History Tylenol 650 mg TN PRN 04/26/19 04/26/19 Unknown History Active Meds: Active Medications Acetaminophen (Tylenol) 650 mg PO Q4H PRN PRN Reason: Pain MILD(1-3)/Fever >100.5/CARDENAS Dextrose (D50w (25gm) Syringe) 50 ml IV Q30MIN PRN; Protocol PRN Reason: Hypoglycemia Cefepime HCl (Cefepime/Ns 1 Gm/100 Ml) 1 gm in 100 mls @ 200 mls/hr IV Q24HR@1600 FELIPE; Protocol Last Admin: 04/26/19 16:41 Dose: 200 mls/hr Documented by: Metronidazole (Flagyl 500 Mg/100 Ml) 500 mg in 100 mls @ 100 mls/hr IV Q8HR FELIPE Last Admin: 04/27/19 06:17 Dose: 100 mls/hr Documented by: Dextrose/Sodium Chloride (D5/0.45ns) 1,000 mls @ 100 mls/hr IV DIRECT FELIPE Last Admin: 04/27/19 09:25 Dose: 100 mls/hr Documented by: Lidocaine (Lidoderm 5%) 1 each TD QDAY [facility] Last Admin: 04/27/19 09:24 Dose: 1 each Documented by: Magnesium Hydroxide (Milk Of Magnesia) 30 ml PO Q4H PRN PRN Reason: Constipation Morphine Sulfate (Morphine) 2 mg IV Q4H PRN PRN Reason: Pain, Moderate (4-6) Last Admin: 04/26/19 22:14 Dose: 2 mg Documented by: Ondansetron HCl (Zofran) 4 mg IV Q8H PRN PRN Reason: Nausea And Vomiting Sodium Chloride (Sodium Chloride Flush Syringe 10 Ml) 10 ml IV BID [facility] Last Admin: 04/26/19 22:14 Dose: 10 ml Documented by: Sodium Chloride (Sodium Chloride Flush Syringe 10 Ml) 10 ml IV PRN PRN PRN Reason: LINE FLUSH Tamsulosin HCl (Flomax) 0.4 mg PO QPM [facility] Last Admin: 04/26/19 18:36 Dose: Not Given Documented by: Vitamin B Complex/Vitamin C (Allbee With C) 1 each PO BID [facility] Last Admin: 04/27/19 11:42 Dose: Not Given Documented by: Physical Examination Vital signs: Vital Signs Resp Pulse Ox 20 95 04/26/19 00:20 04/26/19 00:20 Results - Laboratory Findings CBC and BMP: 04/27/19 05:02 04/27/19 05:02 PT/INR, D-dimer PT 19.2 Sec. (12.2-14.9) H 04/26/19 05:49 INR 1.59 (0.87-1.13) H 04/26/19 05:49 Abnormal lab findings: Abnormal Labs 04/26/19 04/26/19 04/26/19 05:49 05:49 05:49 WBC 16.3 H RBC Hgb 8.8 L Hct 27.5 L MCV 74 L MCH 24 L MCHC RDW 26.5 H Seg Neuts % (Manual) 83.0 H Lymphocytes % (Manual) 11.0 L Seg Neutrophils # Man 13.5 H PT 19.2 H INR 1.59 H APTT 39.2 H Sodium 156 H Potassium 3.4 L Chloride 114.9 H Carbon Dioxide 14 L BUN 100 H Creatinine 7.7 H ALT Alkaline Phosphatase Albumin 04/27/19 04/27/19 05:02 05:02 WBC 15.0 H RBC 3.44 L Hgb 7.9 L Hct 25.4 L MCV 74 L MCH 23 L MCHC 31 L RDW 26.3 H Seg Neuts % (Manual) Lymphocytes % (Manual) Seg Neutrophils # Man PT INR APTT Sodium 159 H Potassium Chloride 122.3 H Carbon Dioxide 16 L BUN 109 H Creatinine 9.6 H ALT < 5 L Alkaline Phosphatase 139 H Albumin 2.3 L
--- NOTE | 2019-04-27 14:20 | Magnetic Resonance Report ---
MRI BRAIN WITHOUT CONTRAST INDICATION / CLINICAL INFORMATION: Altered mental status. TECHNIQUE: Multisequence, multiplanar images were obtained. COMPARISON: None available. FINDINGS: CEREBRAL and CEREBELLAR HEMISPHERES: An approximate 5 mm focus of diffusion restriction is identified in the inferior left cerebellar hemisphere on diffusion image 6. No other areas of diffusion restric tion. Advanced diffuse volume loss and chronic ischemic changes in the white matter are noted. No chr onic infarct. No evidence of mass or mass effect. No midline shift. No acute hemorrhage. No extra-a xial fluid collection. VENTRICLES: Normal in size and configuration for age. VISUALIZED ORBITS: No significant abnormality. VISUALIZED PARANASAL SINUSES: No significant abnormality. ADDITIONAL FINDINGS: None. IMPRESSION: 5 mm focus of subacute ischemia in the left inferior cerebellum. Advanced volume loss and chronic white matter changes. Signer Name: Bi Sandra Jr, MD Signed: 04/27/2019 2:15 PM Workstation Name: [id number]
[2019-04-27] MEDS ORDERED: SODIUM CHLORIDE 0.9% 250ML 250 ML ONE (14:38)
[2019-04-27] MEDS ORDERED: fentaNYL 100 MCG/2 ML INJ ONE (14:38)
[2019-04-27] MEDS ORDERED: SODIUM CHLORIDE IRRI 500 ML 500 ML IR ONE (14:38)
[2019-04-27] MEDS ORDERED: MIDAZOLAM 2 MG/2 ML INJ ONE (14:38)
--- NOTE | 2019-04-27 15:09 | Progress Note ---
Assessment and Plan Cultures at [place]: 04/22/2019 Blood culture: No growth 04/22/2019 fungal blood culture: No growth 04/23/2019 Blood culture: No growth 04/23/2019 catheter tip culture: 15 or more colonies of Staphylococcus hemolytic us 04/23/2019 urine culture: No growth 04/22/2019 serum cryptococcal antigen: Negative Cultures here: Blood culture: negative A/P: 83-year-old male originally from [facility] with history of dementia, advanced CKD had dialysis twice while in [facility], metastatic prostate cancer, hypertension, failure to thrive was also on TPN while in [place] came in to the [facility] on 04/21/2019. Next day, family noticed hematuria and hence he was taken to [facility] and was hospitalized on 04/22/2019, transfered here on 04/25/2019. ID consulted for ?sepsis. 1) Multiple cavitary lung nodules: ?septic emboli v/s infectious v/s mets. Of note, patient had a TPN central line (R subclavian) which was removed while at [place]. TTE at [place] unremarkable. Blood cultures also negative. 2) Acute v/s subacute progressive encephalopathy: has baseline dementia. Multifactorial. Sodium is high, creatinine also high. MRI showed subacute ischemia. 3) Leucocytosis: persistent, does not seem to have responded to broad spectrum antibiotic therapy. ?malignancy related. 4) Acute renal failure on CKD: ?component of obstructive uropathy as well as medical renal disease. Apparently was dialyzed twice in [facility]. Nephrology following. 5) Metastatic prostate cancer Recs: continue empiric renally adjusted Cefepime and Vancomycin continue airborne isolation f/u TB IGRA await pulm consult and CT chest findings Overall prognosis is poor, hospice should be considered Jaime Bowens MD, FACP [facility] C: [phone] O: [phone] F: [phone] Subjective Date of service: 04/27/19 Interval history: No fever. Mental status remains poor. Planned for PCN placement by IR. Objective - Exam Narrative Exam: Physical Exam: Constitutional: drowsy, non verbal Head, Ears, Nose: Normocephalic, atraumatic. External ears, nose normal Eyes: Conjunctivae/corneas clear. No icterus. No ptosis. Neck: supple, no meningeal signs Oral: unable to examine Cardiovascular: S1, S2 normal Respiratory: Good air entry, clear to auscultation bilaterally GI: Soft, non-tender; bowel sounds normal. No peritoneal signs Musculoskeletal: No pedal edema, no cyanosis. Skin: No rash or abscess Hem/Lymphatic: No palpable cervical or supraclavicular nodes. No lymphangitis Psych: no agitation Neurological: drowsy, non verbal - Constitutional Vitals: Vital Signs Temp Pulse Resp BP Pulse Ox 98.8 F 111 H 20 139/70 95 04/27/19 05:16 04/26/19 12:42 04/27/19 05:16 04/27/19 05:16 04/26/19 12:42 Temperature -Last 24 Hours Temperature 98.8 F Temperature 98.1 F Temperature 98.0 F - Labs CBC & Chem 7: 04/27/19 05:02 04/27/19 05:02 Labs: Abnormal lab results 04/27/19 04/27/19 Range/Units 05:02 05:02 WBC 15.0 H (4.5-11.0) K/mm3 RBC 3.44 L (3.65-5.03) M/mm3 Hgb 7.9 L (11.8-15.2) gm/dl Hct 25.4 L (35.5-45.6) % MCV 74 L (84-94) fl MCH 23 L (28-32) pg MCHC 31 L (32-34) % RDW 26.3 H (13.2-15.2) % Sodium 159 H (137-145) mmol/L Chloride 122.3 H (98-107) mmol/L Carbon Dioxide 16 L (22-30) mmol/L BUN 109 H (9-20) mg/dL Creatinine 9.6 H (0.8-1.5) mg/dL ALT < 5 L (7-56) units/L Alkaline Phosphatase 139 H (35-129) units/L Albumin 2.3 L (3.9-5) g/dL - Imaging and cardiology CT scan - abdomen: report reviewed, image reviewed (mild b/l hydronephrosis. metastatic prostate cancer)
--- NOTE | 2019-04-27 15:37 | Progress Note ---
Assessment and Plan Assessment and plan: Patient is a 83-year-old male originally from [place] with history of dementia, advanced CKD had dialysis twice while in [place], metastatic prostate cancer, hypertension, failure to thrive was also on TPN while in [place] came in to the [facility] on 04/21/2019. Next day, family noticed hematuria and hence he was taken to [facility] and was hospitalized on 04/22/2019, transferred here on 04/25/2019 secondary to Enviromental crisis at [place] forcing the facility to transfer all inpatients. ID consulted for ?sepsis. cxr: 04/26/19 Chronic interstitial changes. Questionable left lung opacity as described. Suggestion of skin ulceration in the left axillary region, correlate with the patient. Consider further evaluation with CT chest with contrast if needed. * Review of records from [place] shows that the patient had a 1.0 x 1.1 cm right thyroid nodule. There is also on imaging studies including CT of the chest multiple bilateral scattered ill-defined pulmonary nodules surrounded by groundglass opacities many of the nodules are cavitary component it was discussed that the findings were concerning for multifocal infection possibly secondary to septic emboli from cavitary organism including atypical and fungal organisms. * Work-up at [place] included vancomycin which was started on 04 22 with blood culture drawn prior to initiation of the antibiotics subsequently antibiotics was changed from Zosyn to cefepime and Flagyl on 04 22 due to renal function ab normalities. Patient remained n.p.o. for speech evaluation due to aspiration precautions and was placed on airborne precaution. * Creatinine was also noted to be elevated at 5.9 with prior creatinine being 2.6 in March 2019 there was concern of possible obstructive uropathy from prostate malignancy along with breathing renal versus ATN from poor p.o. intake. * Hematuria which was noted was thought to be secondary to prostate cancer * Elevated alk phos was also noted concerning for mets to the bone * He did have a previous right-sided PICC line that was removed in the setting of worsening leukocytosis and fever. The tip of the catheter had been growing coagulase-negative staph. This PICC line was initially placed secondary to TPN needs. Early on IV fluids here in our hospital. * Small focus of CVA noted on MRI BRAIN * Mild to moderate hydronephrosis on CT abdomen and pelvis, with presumed mestatic lesion * Although the history is hazy patient's son believes he had testicular removal surgery while in [place]. Sepsis: POA- Continue abx therapy and ID input at this time Multiple cavitary lung nodules: ?septic emboli v/s infectious v/s mets vs TB. DM with Hyperglycemia Hypernatremia Hypokalemia Acute v/s subacute progressive encephalopathy: has baseline dementia. Leukocytosis Acute renal failure on CKD Metabolic Acidosis Obstructive uropathy Metastatic prostate cancer/Gross Hematuria Failure to thrive Bilateral hydronephrosis Severe protein calorie malnutrition Generalized body pain Plan Continue supportive care Discussed poor prognosis with son Pulmonary, ID, Nephrology consulted For Per drain today BY IR TB IGR pending Start on Tube feeds Await Pulm and Onc recs continue empiric antibiotic, place patient about isolation, may obtain pulmonary consultation. Will follow AFB cultures from [place] Continue to monitor Lining Cementer consult Pain control Will consult, Urology outpatient dvt/gi prophy Patient son verbalized understanding of patients critical condition and grave prognosis, wants to see how he does post nephrostomy tube History Interval history: Patient seen and examined, very lethargic, glazed appearances, not following any commands. Per son who is at bedside, patient was lethargic while at [place] but althjough he was able to eat for a few days there, he had gradually declined functionally over the past few days prior to transfer to us. Hospitalist Physical - Physical exam Narrative exam: VITAL SIGNS: Reviewed. GENERAL: The patient appears chronically ill, encephalopathic, cachectic moans and groans., Vital signs as documented. HEAD: No signs of head trauma. temporal wasting noted EYES: Pupils are equal. Extraocular motions intact. EARS: Hearing grossly intact. MOUTH: Oropharynx is normal. NECK: No adenopathy, no JVD. CHEST: Chest with diminished breath sounds bilaterally. No wheezes, rales, or rhonchi. CARDIAC: Regular rate and rhythm. S1 and S2, without murmurs, gallops, or rubs. VASCULAR: No Edema. Peripheral pulses normal and equal in all extremities. ABDOMEN: Soft, non tender and non distended. No rebound or guarding, and no masses palpated. Bowel Sounds normal. MUSCULOSKELETAL: Good range of motion of all major joints. Extremities without clubbing, cyanosis or edema. NEUROLOGIC EXAM: Disoriented, awake not following any commands. PSYCHIATRIC: Mood normal. SKIN: Warm to the touch, Mirza catheter in place, detail exam as documented in skin assessment - Constitutional Vitals: Temp Pulse Resp BP Pulse Ox 98.8 F 111 H 20 139/70 95 04/27/19 05:16 04/26/19 12:42 04/27/19 05:16 04/27/19 05:16 04/26/19 12:42 General appearance: Present: no acute distress Results - Labs CBC & Chem 7: 04/27/19 05:02 04/27/19 05:02 Labs: Laboratory Last Values WBC 15.0 K/mm3 (4.5-11.0) H 04/27/19 05:02 RBC 3.44 M/mm3 (3.65-5.03) L 04/27/19 05:02 Hgb 7.9 gm/dl (11.8-15.2) L 04/27/19 05:02 Hct 25.4 % (35.5-45.6) L 04/27/19 05:02 MCV 74 fl (84-94) L 04/27/19 05:02 MCH 23 pg (28-32) L 04/27/19 05:02 MCHC 31 % (32-34) L 04/27/19 05:02 RDW 26.3 % (13.2-15.2) H 04/27/19 05:02 Plt Count 358 K/mm3 (140-440) 04/27/19 05:02 Add Manual Diff Complete 04/26/19 05:49 Total Counted 100 04/26/19 05:49 Seg Neuts % (Manual) 83.0 % (40.0-70.0) H 04/26/19 05:49 Band Neutrophils % 0 % 04/26/19 05:49 Lymphocytes % (Manual) 11.0 % (13.4-35.0) L 04/26/19 05:49 Reactive Lymphs % (Man) 0 % 04/26/19 05:49 Monocytes % (Manual) 5.0 % (0.0-7.3) 04/26/19 05:49 Eosinophils % (Manual) 1.0 % (0.0-4.3) 04/26/19 05:49 Basophils % (Manual) 0 % (0.0-1.8) 04/26/19 05:49 Metamyelocytes % 0 % 04/26/19 05:49 Myelocytes % 0 % 04/26/19 05:49 Promyelocytes % 0 % 04/26/19 05:49 Blast Cells % 0 % 04/26/19 05:49 Nucleated RBC % Not Reportable 04/26/19 05:49 Seg Neutrophils # Man 13.5 K/mm3 (1.8-7.7) H 04/26/19 05:49 Band Neutrophils # 0.0 K/mm3 04/26/19 05:49 Lymphocytes # (Manual) 1.8 K/mm3 (1.2-5.4) 04/26/19 05:49 Abs React Lymphs (Man) 0.0 K/mm3 04/26/19 05:49 Monocytes # (Manual) 0.8 K/mm3 (0.0-0.8) 04/26/19 05:49 Eosinophils # (Manual) 0.2 K/mm3 (0.0-0.4) 04/26/19 05:49 Basophils # (Manual) 0.0 K/mm3 (0.0-0.1) 04/26/19 05:49 Metamyelocytes # 0.0 K/mm3 04/26/19 05:49 Myelocytes # 0.0 K/mm3 04/26/19 05:49 Promyelocytes # 0.0 K/mm3 04/26/19 05:49 Blast Cells # 0.0 K/mm3 04/26/19 05:49 WBC Morphology Not Reportable 04/26/19 05:49 Hypersegmented Neuts Not Reportable 04/26/19 05:49 Hyposegmented Neuts Not Reportable 04/26/19 05:49 Hypogranular Neuts Not Reportable 04/26/19 05:49 Smudge Cells Not Reportable 04/26/19 05:49 Toxic Granulation Not Reportable 04/26/19 05:49 Toxic Vacuolation Not Reportable 04/26/19 05:49 Dohle Bodies Not Reportable 04/26/19 05:49 Pelger-Huet Anomaly Not Reportable 04/26/19 05:49 Félix Rods Not Reportable 04/26/19 05:49 Platelet Estimate Consistent w auto 04/26/19 05:49 Clumped Platelets Not Reportable 04/26/19 05:49 Plt Clumps, EDTA Not Reportable 04/26/19 05:49 Large Platelets Not Reportable 04/26/19 05:49 Giant Platelets Not Reportable 04/26/19 05:49 Platelet Satelliting Not Reportable 04/26/19 05:49 Plt Morphology Comment Not Reportable 04/26/19 05:49 RBC Morphology Not Reportable 04/26/19 05:49 Dimorphic RBCs Not Reportable 04/26/19 05:49 Polychromasia Not Reportable 04/26/19 05:49 Hypochromasia 1+ 04/26/19 05:49 Poikilocytosis Not Reportable 04/26/19 05:49 Anisocytosis 3+ 04/26/19 05:49 Microcytosis 1+ 04/26/19 05:49 Macrocytosis Not Reportable 04/26/19 05:49 Spherocytes Not Reportable 04/26/19 05:49 Pappenheimer Bodies Not Reportable 04/26/19 05:49 Sickle Cells Not Reportable 04/26/19 05:49 Target Cells Rare 04/26/19 05:49 Tear Drop Cells Not Reportable 04/26/19 05:49 Ovalocytes Not Reportable 04/26/19 05:49 Helmet Cells Not Reportable 04/26/19 05:49 Williamson-Wac[place] Bodies Not Reportable 04/26/19 05:49 [place] Rings Not Reportable 04/26/19 05:49 [place] Cells Not Reportable 04/26/19 05:49 Bite Cells Not Reportable 04/26/19 05:49 Crenated Cell Not Reportable 04/26/19 05:49 Elliptocytes Not Reportable 04/26/19 05:49 Acanthocytes (Spur) Not Reportable 04/26/19 05:49 Rouleaux Not Reportable 04/26/19 05:49 Hemoglobin C Crystals Not Reportable 04/26/19 05:49 Schistocytes Not Reportable 04/26/19 05:49 Malaria parasites Not Reportable 04/26/19 05:49 Tayo Bodies Not Reportable 04/26/19 05:49 Hem Pathologist Commnt No 04/26/19 05:49 PT 19.2 Sec. (12.2-14.9) H 04/26/19 05:49 INR 1.59 (0.87-1.13) H 04/26/19 05:49 APTT 39.2 Sec. (24.2-36.6) H 04/26/19 05:49 Sodium 159 mmol/L (137-145) H 04/27/19 05:02 Potassium 4.1 mmol/L (3.6-5.0) D 04/27/19 05:02 Chloride 122.3 mmol/L (98-107) H 04/27/19 05:02 Carbon Dioxide 16 mmol/L (22-30) L 04/27/19 05:02 Anion Gap 25 mmol/L 04/27/19 05:02 BUN 109 mg/dL (9-20) H 04/27/19 05:02 Creatinine 9.6 mg/dL (0.8-1.5) H 04/27/19 05:02 Estimated GFR 6 ml/min 04/27/19 05:02 BUN/Creatinine Ratio 11 % 04/27/19 05:02 Glucose 90 mg/dL (75-100) 04/27/19 05:02 POC Glucose 97 (70-105) 04/26/19 16:32 Calcium 9.1 mg/dL (8.4-10.2) 04/27/19 05:02 Total Bilirubin 0.50 mg/dL (0.1-1.2) 04/27/19 05:02 AST 20 units/L (5-40) 04/27/19 05:02 ALT < 5 units/L (7-56) L 04/27/19 05:02 Alkaline Phosphatase 139 units/L (35-129) H 04/27/19 05:02 Total Protein 8.1 g/dL (6.3-8.2) 04/27/19 05:02 Albumin 2.3 g/dL (3.9-5) L 04/27/19 05:02 Albumin/Globulin Ratio 0.4 % 04/27/19 05:02 AFB Identification 04/27/19 09:50 Active Medications - Current Medications Current Medications: Generic Name Dose Route Start Last Admin Trade Name Freq PRN Reason Stop Dose Admin Acetaminophen 650 mg 04/25/19 22:18 Tylenol PO Q4H PRN Pain MILD(1-3)/Fever >100.5/CARDENAS Aspirin 300 mg 04/27/19 16:00 Aspirin NV QDAY FELIPE Atorvastatin Calcium 40 mg 04/27/19 22:00 Lipitor PO QHS [facility] Dextrose 50 ml 04/25/19 22:18 D50w (25gm) Syringe IV Q30MIN PRN Hypoglycemia Protocol Cefepime HCl 1 gm in 100 mls @ 200 mls/hr 04/26/19 15:00 04/26/19 16:41 Cefepime/Ns 1 Gm/100 Ml IV 200 mls/hr Q24HR@1600 FELIPE Administration Protocol Metronidazole 500 mg in 100 mls @ 100 mls/hr 04/26/19 15:00 04/27/19 13:41 Flagyl 500 Mg/100 Ml IV 100 mls/hr Q8HR FELIPE Administration Dextrose/Sodium Chloride 1,000 mls @ 100 mls/hr 04/27/19 09:00 04/27/19 09:25 D5/0.45ns IV 100 mls/hr DIRECT FELIPE Administration Lidocaine 1 each 04/27/19 10:00 04/27/19 09:24 Lidoderm 5% TD 1 each QDAY FELIPE Administration Magnesium Hydroxide 30 ml 04/25/19 22:18 Milk Of Magnesia PO Q4H PRN Constipation Morphine Sulfate 2 mg 04/25/19 22:18 04/26/19 22:14 Morphine IV 2 mg Q4H PRN Administration Pain, Moderate (4-6) Ondansetron HCl 4 mg 04/25/19 22:18 Zofran IV Q8H PRN Nausea And Vomiting Sodium Chloride 10 ml 04/26/19 10:00 04/27/19 13:42 Sodium Chloride Flush Syringe 10 Ml IV 10 ml BID FELIPE Administration Sodium Chloride 10 ml 04/25/19 22:18 Sodium Chloride Flush Syringe 10 Ml IV PRN PRN LINE FLUSH Tamsulosin HCl 0.4 mg 04/26/19 18:00 04/26/19 18:36 Flomax PO Not Given QPM [facility] Vitamin B Complex/Vitamin C 1 each 04/26/19 22:00 04/27/19 11:42 Allbee With C PO Not Given BID [facility] Nutrition/Malnutrition Assess - Dietary Evaluation Nutrition/Malnutrition Findings: Nutrition Notes Start: 04/26/19 10:43 Freq: Status: Active Protocol: Document 04/27/19 12:54 CT (Rec: 04/27/19 13:18 CT [id number]) Co-Sign 04/27/19 12:54 LM Nutrition Notes Need for Assessment generated from: MD Order Initial or Follow up Reassessment Current Diagnosis CKD(stage I-IV),Diabetes, Hypertension Other Pertinent Diagnosis prostate cancer, hematuria, arthritis, dementia, poss TB Current Diet NPO Labs/Tests Na 159 BUN 109 Cr 9.6 Pertinent Medications 1/2NSD5 100 ml/hr Flagyl Height 6 ft 3 in Weight 56.6 kg Pey[place] Body Weight (kg) 89.09 BMI 15.5 Subjective/Other Information Consult for TF order. Pt getting a DH placed. Burn Absent Trauma Absent GI Symptoms None Current % PO Negligible Minimum of two criteria Yes Energy Intake (severe) < or equal to 50% Estimated Energy Requirement > or equal to 5 days Interpretation of Weight Loss (severe) >10% in 6 months Reduced Family Service Worker Strength Measurably Reduced (severe) #1 Nutrition Diagnosis Malnutrition Diagnosis Progress(for reassessment Continues documentation) Is patient on ventilator? No Is Patient Ambulatory and/or Out of Bed No REE-([facility]-confined to bed) 1617.336 Kcal/Kg value to use for calculation 35 Approximate Energy Requirements Using 1981 kcal/Kg Calculation Used for Recommendations Kcal/kg Additional Notes Protein needs: 76-95g/kg/day ( 1.2-1.5 g/kg/day) Fluid needs: 1 ml/kcal/day Nutrition Intervention Change Diet Order: Initiate TF Nutrition Support: Jevity 1.2 at 70 ml/hr goal rate Flush 200 ml q4h to resolve hypernatremia, once resolved reduce to 100 ml q4h Kcal 2,016 Protein (gm) 93 Fluid (mL) 1,355 Add Supplement/Snack (indicate name/kcal d/c Ensure /protein ) Goal #1 Initiate TF Goal #2 Meet >75% of energy and protein needs via TF Anticipated Discharge Needs: unable to determine at this time Follow-Up By: 04/30/19 Additional Comments Follow up for TF initiation, TF at goal rate.
[2019-04-27] MEDS: LIDOCAINE 1%/EPINEPHRINE 1:100,000 VIAL (20 ML) INFILTRATI ONE ×2 (15:50→15:59)
[2019-04-27] MEDS ORDERED: HEPARIN/NS 5000 UNIT/500ML 0 ML IR ONE (15:52)
--- NOTE | 2019-04-27 16:25 | Operative Report ---
Operative Report Operative Report: Exam: Ultrasound and fluoroscopic guided placement of bilateral nephrostomy tubes Clinical indication: Patient with a history of metastatic prostate cancer, bilateral hydronephrosis, dementia and numerous other medical problems now with elevated creatinine secondary to obstructive uropathy. Date: 04/27/2019 Procedure: Following an explanation of the risks, benefits and alternatives; written informed consent was obtained from the patient's next of kin. The patient was brought to the angiographic suite and placed in prone position on the examination table. Initial ultrasound evaluation of his back demonstrated moderate bilateral hydronephrosis. The right kidney demonstrates debris within the calyces as well. The patient's back was prepped and draped in usual sterile fashion. 1% lidocaine was used for anesthesia. Left: Under ultrasound guidance, a 15 cm 21-gauge needle was advanced into a posterior middle calyx. There is prompt return of cloudy serous fluid. A 0.018 guidewire was advanced into the proximal ureter under fluoroscopy and the needle removed. An [place]on transition dilator was then placed over the guidewire and advanced centrally. The 0.01 a guidewire was exchanged for a 0.035 guidewire which was advanced into the proximal ureter. The transition dilator was removed and following serial dilation, an 8 Kazakh nephrostomy tube was placed over the guidewire advanced centrally. The guidewire was removed and the pigtail positioned in the renal illness. There is prompt return of cloudy serous fluid. A sample was sent for laboratory analysis. The catheter was securely fastened to the skin surface using 2-0 Ethilon suture and staple aches device. The catheter was in place to dependent drainage. Right: Under ultrasound guidance, a 15 cm 21-gauge needle was advanced into a posterior middle calyx. There is prompt return of purulent fluid. A 0.018 guidewire was advanced into the proximal ureter under fluoroscopy and the needle was exchanged for an Accustick transition dilator. The 0.018 guidewire change for a 0.035 guidewire and the AccuStick transition dilator removed. Following serial dilation, an 8 Kazakh approximately tube was placed over the guidewire and advanced centrally. The guidewire was removed and the pigtail positioned in the renal pelvis. There is prompt return of purulent fluid. A sample sent for laboratory analysis. The rest room was performed to document appropriate positioning. The catheter was securely fastened of the skin surface using 2-0 Ethilon suture and staple aches device. The catheter was then placed to dependent drainage. The patient tolerated the procedure well. There were no immediate post procedure palpitations. A minimal amount of Versed was used for anxiolysis. Sedation was not utilized secondary to patient's multiple medical comorbidities. Continuous cardiopulmonary monitoring was utilized. Impression: Ultrasound and fluoroscopic guided placement of bilateral 8 malay nephrostomy tubes. On the left, there was prompt return of cloudy serous fluid, a sample was sent for laboratory analysis, on the right, there was prompt return of purulent fluid, a sample was sent for laboratory analysis.
[2019-04-27] MEDS ORDERED: SODIUM BICARB 8.4% 50 MEQ/50 ML SYRINGE IV ONE (16:37)
[2019-04-27] MEDS: CEFEPIME/NS 1 GM/100 ML 1 GM/100 ML BAG IV SCH (18:08)
--- NOTE | 2019-04-27 18:10 | XRay Report ---
ABDOMEN SUPINE INDICATION / CLINICAL INFORMATION: to access placement of dobhuff to start tube feedi. COMPARISON: None available. FINDINGS: Distal end of the Dobbhoff tube is projected over the proximal stomach. Signer Name: Alessio Moraes MD Signed: 04/27/2019 6:05 PM Workstation Name: [id number]
--- NOTE | 2019-04-27 18:33 | Progress Note ---
Subjective Date of service: 04/27/19 Interval history: I did not see any metastatic lesions from prostate maligmancy present on the MRI there is very small ischemic area in inferior cerebellum this is vey minor... the really severe problems is profound advanced atropht which is degenerative in nature based on severe nature of degenerative disease this is certainly likely cause of severe confusion reviewed the reports and viewed the imaging studies Thanks Objective - Vital Sign Vital Signs - 12hr 04/27/19 04/27/19 13:46 17:05 Temperature 98.4 F 97.8 F Pulse Rate 101 H Respiratory 22 22 Rate Blood Pressure 124/50 75/44 O2 Sat by Pulse 94 Oximetry - Laboratory Findings CBC and BMP: 04/27/19 05:02 04/27/19 05:02 Abnormal Lab Findings: Abnormal Labs 04/26/19 04/26/19 04/26/19 05:49 05:49 05:49 WBC 16.3 H RBC Hgb 8.8 L Hct 27.5 L MCV 74 L MCH 24 L MCHC RDW 26.5 H Seg Neuts % (Manual) 83.0 H Lymphocytes % (Manual) 11.0 L Seg Neutrophils # Man 13.5 H PT 19.2 H INR 1.59 H APTT 39.2 H Sodium 156 H Potassium 3.4 L Chloride 114.9 H Carbon Dioxide 14 L BUN 100 H Creatinine 7.7 H ALT Alkaline Phosphatase Albumin 04/27/19 04/27/19 05:02 05:02 WBC 15.0 H RBC 3.44 L Hgb 7.9 L Hct 25.4 L MCV 74 L MCH 23 L MCHC 31 L RDW 26.3 H Seg Neuts % (Manual) Lymphocytes % (Manual) Seg Neutrophils # Man PT INR APTT Sodium 159 H Potassium Chloride 122.3 H Carbon Dioxide 16 L BUN 109 H Creatinine 9.6 H ALT < 5 L Alkaline Phosphatase 139 H Albumin 2.3 L
[2019-04-27] MEDS: TAMSULOSIN 0.4 MG CAP PO SCH (21:09)
[2019-04-27] MEDS: ASPIRIN 300 MG RECT SUPP PR SCH (21:09)
[2019-04-28] MEDS: D5W/0.45% NACL 1,000 ML IV SCH (06:01)
[2019-04-28] MEDS: metroNIDAZOLE/NS 500 MG/100 ML 500 MG/100 ML BAG IV SCH ×3 (06:01→22:36)
[2019-04-28] MEDS ORDERED: SODIUM CHLORIDE 0.9% 1000 ML 1,000 ML IV ONE (10:15)
[2019-04-28] MEDS: ASPIRIN 300 MG RECT SUPP PR SCH (10:18)
[2019-04-28] MEDS: B COMPLEX W/VITAMIN C TAB PO SCH ×2 (10:18→22:37)
[2019-04-28] MEDS: LIDOCAINE 5% 1 EACH PATCH TD SCH (10:18)
[2019-04-28 10:54] LABS: Hematocrit 25.2 % (35.5-45.6); Red Blood Count 3.46 M/mm3 (3.65-5.03)
[2019-04-28 10:55] LABS: Basophils % (Auto) 0.6 % (0.0-1.8); Eosinophils % (Auto) 2.8 % (0.0-4.3); Lymphocytes % (Auto) 7.7 % (13.4-35.0); Mean Corpuscular HGB Conc 32 % (32-34); Mean Corpuscular Volume 73 fl (84-94); Monocytes % (Auto) 6.3 % (0.0-7.3); Platelet Count 304 K/mm3 (140-440)
[2019-04-28 10:56] LABS: Basophils # (Auto) 0.1 K/mm3 (0.0-0.1); Eosinophils # (Auto) 0.4 K/mm3 (0.0-0.4); Monocytes # (Auto) 0.8 K/mm3 (0.0-0.8)
[2019-04-28 11:01] LABS: Alanine Aminotransferase < 5 units/L (7-56); Albumin 1.9 g/dL (3.9-5); Calcium 8.3 mg/dL (8.4-10.2); Hemolysis Index 4
[2019-04-28 11:08] LABS: BUN/Creatinine Ratio 13; Blood Urea Nitrogen 123 mg/dL (9-20)
[2019-04-28] MEDS ORDERED: SODIUM BICARB 8.4% 50 MEQ/50 ML SYRINGE IV ONE ×2 (11:10→16:00)
--- NOTE | 2019-04-28 11:16 | Progress Note ---
Assessment and Plan Assessment and plan: Patient is a 83-year-old male originally from [place] with history of dementia, advanced CKD had dialysis twice while in [place], metastatic prostate cancer, hypertension, failure to thrive was also on TPN while in [place] came in to the [facility] on 04/21/2019. Next day, family noticed hematuria and hence he was taken to [facility] and was hospitalized on 04/22/2019, transferred here on 04/25/2019 secondary to Enviromental crisis at [facility] forcing the facility to transfer all inpatients. ID consulted for ?sepsis. cxr: 04/26/19 Chronic interstitial changes. Questionable left lung opacity as described. Suggestion of skin ulceration in the left axillary region, correlate with the patient. Consider further evaluation with CT chest with contrast if needed. * Review of records from [facility] shows that the patient had a 1.0 x 1.1 cm right thyroid nodule. There is also on imaging studies including CT of the chest multiple bilateral scattered ill-defined pulmonary nodules surrounded by groundglass opacities many of the nodules are cavitary component it was discussed that the findings were concerning for multifocal infection possibly secondary to septic emboli from cavitary organism including atypical and fungal organisms. * Work-up at [facility] included vancomycin which was started on 04 22 with blood culture drawn prior to initiation of the antibiotics subsequently antibiotics was changed from Zosyn to cefepime and Flagyl on 04 22 due to renal function ab normalities. Patient remained n.p.o. for speech evaluation due to aspiration precautions and was placed on airborne precaution. * Creatinine was also noted to be elevated at 5.9 with prior creatinine being 2.6 in March 2019 there was concern of possible obstructive uropathy from prostate malignancy along with breathing renal versus ATN from poor p.o. intake. * Hematuria which was noted was thought to be secondary to prostate cancer * Elevated alk phos was also noted concerning for mets to the bone * He did have a previous right-sided PICC line that was removed in the setting of worsening leukocytosis and fever. The tip of the catheter had been growing coagulase-negative staph. This PICC line was initially placed secondary to TPN needs. Early on IV fluids here in our hospital. * Small focus of CVA noted on MRI BRAIN * Mild to moderate hydronephrosis on CT abdomen and pelvis, with presumed mestatic lesion * Although the history is hazy patient's son believes he had testicular removal surgery while in [place]. Sepsis: POA- Continue abx therapy and ID input at this time Multiple cavitary lung nodules: ?septic emboli v/s infectious v/s mets vs TB. CVA DM with Hyperglycemia Hypernatremia Hypokalemia Acute v/s subacute progressive encephalopathy: has baseline dementia. Leukocytosis Acute renal failure on CKD Metabolic Acidosis Obstructive uropathy Metastatic prostate cancer/Gross Hematuria Failure to thrive Bilateral hydronephrosis Severe protein calorie malnutrition Generalized body pain Plan Continue supportive care Discussed poor prognosis with son Pulmonary, ID, Nephrology consulted ASA and STATIN Check carotid US Rehab accessment still with persistently elevated creatnine despite nephrostomy tube but not worsening. Family at this time not willing for Hospice, Will see if Land Title Examiner will consider Dialysis. Unable to get CT chest with contrast due to renal function TB IGR pending Tolerating on Tube feeds continue empiric antibiotic, place patient about isolation, may obtain pulmonary consultation. Will follow AFB cultures from [facility] Continue to monitor Defect Cutter consult Pain control Will consult, Urology outpatient dvt/gi prophy Patient son verbalized understanding of patients critical condition and grave prognosis, wants to see how he does post nephrostomy tube History Interval history: Patient seen and examined, very lethargic, glazed appearances, not following any commands. still very weak. S/P Bilateral Nephrostomy tube Hospitalist Physical - Physical exam Narrative exam: VITAL SIGNS: Reviewed. GENERAL: The patient appears chronically ill, encephalopathic, cachectic moans and groans., Vital signs as documented. HEAD: No signs of head trauma. temporal wasting noted EYES: Pupils are equal. Extraocular motions intact. EARS: Hearing grossly intact. MOUTH: Oropharynx is normal. NECK: No adenopathy, no JVD. CHEST: Chest with diminished breath sounds bilaterally. No wheezes, rales, or rhonchi. CARDIAC: Regular rate and rhythm. S1 and S2, without murmurs, gallops, or rubs. VASCULAR: No Edema. Peripheral pulses normal and equal in all extremities. ABDOMEN: Soft, non tender and non distended. [place], No rebound or guarding, and no masses palpated. Bowel Sounds normal. MUSCULOSKELETAL: Extremities without clubbing, cyanosis or edema. NEUROLOGIC EXAM: Disoriented, awake not following any commands. PSYCHIATRIC: Mood normal. SKIN: Warm to the touch, Mirza catheter in place, Bilateral Nephrostomy tube in place. detail exam as documented in skin assessment - Constitutional Vitals: Temp Pulse Resp BP Pulse Ox 98.2 F 96 H 18 93/45 99 04/28/19 04:09 04/28/19 04:09 04/28/19 04:09 04/28/19 04:09 04/28/19 04:09 General appearance: Present: no acute distress Results - Labs CBC & Chem 7: 04/28/19 10:27 04/28/19 10:27 Labs: Laboratory Last Values WBC 13.0 K/mm3 (4.5-11.0) H 04/28/19 10:27 RBC 3.46 M/mm3 (3.65-5.03) L 04/28/19 10:27 Hgb 8.0 gm/dl (11.8-15.2) L 04/28/19 10:27 Hct 25.2 % (35.5-45.6) L 04/28/19 10:27 MCV 73 fl (84-94) L 04/28/19 10:27 MCH 23 pg (28-32) L 04/28/19 10:27 MCHC 32 % (32-34) 04/28/19 10:27 RDW 26.0 % (13.2-15.2) H 04/28/19 10:27 Plt Count 304 K/mm3 (140-440) 04/28/19 10:27 Lymph % (Auto) 7.7 % (13.4-35.0) L 04/28/19 10:27 J[place] % (Auto) 6.3 % (0.0-7.3) 04/28/19 10:27 Eos % (Auto) 2.8 % (0.0-4.3) 04/28/19 10:27 Baso % (Auto) 0.6 % (0.0-1.8) 04/28/19 10:27 Lymph # 1.0 K/mm3 (1.2-5.4) L 04/28/19 10:27 Jerauld # 0.8 K/mm3 (0.0-0.8) 04/28/19 10:27 Eos # 0.4 K/mm3 (0.0-0.4) 04/28/19 10:27 Baso # 0.1 K/mm3 (0.0-0.1) 04/28/19 10:27 Add Manual Diff Complete 04/26/19 05:49 Total Counted 100 04/26/19 05:49 Seg Neutrophils % 82.6 % (40.0-70.0) H 04/28/19 10:27 Seg Neuts % (Manual) 83.0 % (40.0-70.0) H 04/26/19 05:49 Band Neutrophils % 0 % 04/26/19 05:49 Lymphocytes % (Manual) 11.0 % (13.4-35.0) L 04/26/19 05:49 Reactive Lymphs % (Man) 0 % 04/26/19 05:49 Monocytes % (Manual) 5.0 % (0.0-7.3) 04/26/19 05:49 Eosinophils % (Manual) 1.0 % (0.0-4.3) 04/26/19 05:49 Basophils % (Manual) 0 % (0.0-1.8) 04/26/19 05:49 Metamyelocytes % 0 % 04/26/19 05:49 Myelocytes % 0 % 04/26/19 05:49 Promyelocytes % 0 % 04/26/19 05:49 Blast Cells % 0 % 04/26/19 05:49 Nucleated RBC % Not Reportable 04/26/19 05:49 Seg Neutrophils # 10.8 K/mm3 (1.8-7.7) H 04/28/19 10:27 Seg Neutrophils # Man 13.5 K/mm3 (1.8-7.7) H 04/26/19 05:49 Band Neutrophils # 0.0 K/mm3 04/26/19 05:49 Lymphocytes # (Manual) 1.8 K/mm3 (1.2-5.4) 04/26/19 05:49 Abs React Lymphs (Man) 0.0 K/mm3 04/26/19 05:49 Monocytes # (Manual) 0.8 K/mm3 (0.0-0.8) 04/26/19 05:49 Eosinophils # (Manual) 0.2 K/mm3 (0.0-0.4) 04/26/19 05:49 Basophils # (Manual) 0.0 K/mm3 (0.0-0.1) 04/26/19 05:49 Metamyelocytes # 0.0 K/mm3 04/26/19 05:49 Myelocytes # 0.0 K/mm3 04/26/19 05:49 Promyelocytes # 0.0 K/mm3 04/26/19 05:49 Blast Cells # 0.0 K/mm3 04/26/19 05:49 WBC Morphology Not Reportable 04/26/19 05:49 Hypersegmented Neuts Not Reportable 04/26/19 05:49 Hyposegmented Neuts Not Reportable 04/26/19 05:49 Hypogranular Neuts Not Reportable 04/26/19 05:49 Smudge Cells Not Reportable 04/26/19 05:49 Toxic Granulation Not Reportable 04/26/19 05:49 Toxic Vacuolation Not Reportable 04/26/19 05:49 Dohle Bodies Not Reportable 04/26/19 05:49 Pelger-Huet Anomaly Not Reportable 04/26/19 05:49 Félix Rods Not Reportable 04/26/19 05:49 Platelet Estimate Consistent w auto 04/26/19 05:49 Clumped Platelets Not Reportable 04/26/19 05:49 Plt Clumps, EDTA Not Reportable 04/26/19 05:49 Large Platelets Not Reportable 04/26/19 05:49 Giant Platelets Not Reportable 04/26/19 05:49 Platelet Satelliting Not Reportable 04/26/19 05:49 Plt Morphology Comment Not Reportable 04/26/19 05:49 RBC Morphology Not Reportable 04/26/19 05:49 Dimorphic RBCs Not Reportable 04/26/19 05:49 Polychromasia Not Reportable 04/26/19 05:49 Hypochromasia 1+ 04/26/19 05:49 Poikilocytosis Not Reportable 04/26/19 05:49 Anisocytosis 3+ 04/26/19 05:49 Microcytosis 1+ 04/26/19 05:49 Macrocytosis Not Reportable 04/26/19 05:49 Spherocytes Not Reportable 04/26/19 05:49 Pappenheimer Bodies Not Reportable 04/26/19 05:49 Sickle Cells Not Reportable 04/26/19 05:49 Target Cells Rare 04/26/19 05:49 Tear Drop Cells Not Reportable 04/26/19 05:49 Ovalocytes Not Reportable 04/26/19 05:49 Helmet Cells Not Reportable 04/26/19 05:49 [place] Bodies Not Reportable 04/26/19 05:49 [place] Rings Not Reportable 04/26/19 05:49 Cascade Cells Not Reportable 04/26/19 05:49 Bite Cells Not Reportable 04/26/19 05:49 Crenated Cell Not Reportable 04/26/19 05:49 Elliptocytes Not Reportable 04/26/19 05:49 Acanthocytes (Spur) Not Reportable 04/26/19 05:49 Rouleaux Not Reportable 04/26/19 05:49 Hemoglobin C Crystals Not Reportable 04/26/19 05:49 Schistocytes Not Reportable 04/26/19 05:49 Malaria parasites Not Reportable 04/26/19 05:49 Tayo Bodies Not Reportable 04/26/19 05:49 Hem Pathologist Commnt No 04/26/19 05:49 PT 19.2 Sec. (12.2-14.9) H 04/26/19 05:49 INR 1.59 (0.87-1.13) H 04/26/19 05:49 APTT 39.2 Sec. (24.2-36.6) H 04/26/19 05:49 Sodium 155 mmol/L (137-145) H 04/28/19 10:27 Potassium 3.8 mmol/L (3.6-5.0) 04/28/19 10:27 Chloride 118.0 mmol/L (98-107) H 04/28/19 10:27 Carbon Dioxide 16 mmol/L (22-30) L 04/28/19 10:27 Anion Gap 25 mmol/L 04/28/19 10:27 BUN 123 mg/dL (9-20) H 04/28/19 10:27 Creatinine 9.5 mg/dL (0.8-1.5) H 04/28/19 10:27 Estimated GFR 6 ml/min 04/28/19 10:27 BUN/Creatinine Ratio 13 % 04/28/19 10:27 Glucose 149 mg/dL (75-100) H 04/28/19 10:27 POC Glucose 97 (70-105) 04/26/19 16:32 Calcium 8.3 mg/dL (8.4-10.2) L 04/28/19 10:27 Total Bilirubin 0.40 mg/dL (0.1-1.2) 04/28/19 10:27 AST 24 units/L (5-40) 04/28/19 10:27 ALT < 5 units/L (7-56) L 04/28/19 10:27 Alkaline Phosphatase 124 units/L (35-129) 04/28/19 10:27 Total Protein 7.4 g/dL (6.3-8.2) 04/28/19 10:27 Albumin 1.9 g/dL (3.9-5) L 04/28/19 10:27 Albumin/Globulin Ratio 0.3 % 04/28/19 10:27 Random Vancomycin 27.3 ug/mL (0-40.0) 04/28/19 05:09 AFB Identification 04/27/19 09:50 Active Medications - Current Medications Current Medications: Generic Name Dose Route Start Last Admin Trade Name Freq PRN Reason Stop Dose Admin Acetaminophen 650 mg 04/25/19 22:18 Tylenol PO Q4H PRN Pain MILD(1-3)/Fever >100.5/CARDENAS Aspirin 300 mg 04/27/19 17:00 04/28/19 10:18 Aspirin VT 300 mg QDAY FELIPE Administration Atorvastatin Calcium 40 mg 04/27/19 22:00 04/27/19 21:09 Lipitor PO 40 mg QHS FELIPE Administration Dextrose 50 ml 04/25/19 22:18 D50w (25gm) Syringe IV Q30MIN PRN Hypoglycemia Protocol Cefepime HCl 1 gm in 100 mls @ 200 mls/hr 04/26/19 15:00 04/27/19 18:08 Cefepime/Ns 1 Gm/100 Ml IV 200 mls/hr Q24HR@1600 FELIPE Administration Protocol Metronidazole 500 mg in 100 mls @ 100 mls/hr 04/26/19 15:00 04/28/19 06:01 Flagyl 500 Mg/100 Ml IV 100 mls/hr Q8HR FELIPE Administration Dextrose/Sodium Chloride 1,000 mls @ 100 mls/hr 04/27/19 09:00 04/28/19 06:01 D5/0.45ns IV 100 mls/hr DIRECT FELIPE Administration Sodium Chloride 1,000 mls @ 999 mls/hr 04/28/19 10:15 04/28/19 11:09 Nacl 0.9% 1000 Ml IV 04/28/19 11:15 999 mls/hr BOLUS ONE Administration Lidocaine 1 each 04/27/19 10:00 04/28/19 10:18 Lidoderm 5% TD 1 each QDAY FELIPE Administration Magnesium Hydroxide 30 ml 04/25/19 22:18 Milk Of Magnesia PO Q4H PRN Constipation Morphine Sulfate 2 mg 04/25/19 22:18 04/26/19 22:14 Morphine IV 2 mg Q4H PRN Administration Pain, Moderate (4-6) Ondansetron HCl 4 mg 04/25/19 22:18 Zofran IV Q8H PRN Nausea And Vomiting Sodium Bicarbonate 50 meq 04/28/19 11:10 Sodium Bicarbonate 50meq Syringe IV 04/28/19 11:11 ONCE ONE Sodium Chloride 10 ml 04/26/19 10:00 04/28/19 11:09 Sodium Chloride Flush Syringe 10 Ml IV 10 ml BID FELIPE Administration Sodium Chloride 10 ml 04/25/19 22:18 Sodium Chloride Flush Syringe 10 Ml IV PRN PRN LINE FLUSH Tamsulosin HCl 0.4 mg 04/26/19 18:00 04/27/19 21:09 Flomax PO 0.4 mg QPM FELIPE Administration Vitamin B Complex/Vitamin C 1 each 04/26/19 22:00 04/28/19 10:18 Allbee With C PO 1 each BID FELIPE Administration Nutrition/Malnutrition Assess - Dietary Evaluation Nutrition/Malnutrition Findings: Nutrition Notes Start: 04/26/19 10:43 Freq: Status: Active Protocol: Document 04/27/19 12:54 CT (Rec: 04/27/19 13:18 CT [id number]) Co-Sign 04/27/19 12:54 LM Nutrition Notes Need for Assessment generated from: MD Order Initial or Follow up Reassessment Current Diagnosis CKD(stage I-IV),Diabetes, Hypertension Other Pertinent Diagnosis prostate cancer, hematuria, arthritis, dementia, poss TB Current Diet NPO Labs/Tests Na 159 BUN 109 Cr 9.6 Pertinent Medications 1/2NSD5 100 ml/hr Flagyl Height 6 ft 3 in Weight 56.6 kg [place] Body Weight (kg) 89.09 BMI 15.5 Subjective/Other Information Consult for TF order. Pt getting a DH placed. Burn Absent Trauma Absent GI Symptoms None Current % PO Negligible Minimum of two criteria Yes Energy Intake (severe) < or equal to 50% Estimated Energy Requirement > or equal to 5 days Interpretation of Weight Loss (severe) >10% in 6 months Reduced Radio Electronics Technician Strength Measurably Reduced (severe) #1 Nutrition Diagnosis Malnutrition Diagnosis Progress(for reassessment Continues documentation) Is patient on ventilator? No Is Patient Ambulatory and/or Out of Bed No REE-([facility]-confined to bed) 1617.336 Kcal/Kg value to use for calculation 35 Approximate Energy Requirements Using 1981 kcal/Kg Calculation Used for Recommendations Kcal/kg Additional Notes Protein needs: 76-95g/kg/day ( 1.2-1.5 g/kg/day) Fluid needs: 1 ml/kcal/day Nutrition Intervention Change Diet Order: Initiate TF Nutrition Support: Jevity 1.2 at 70 ml/hr goal rate Flush 200 ml q4h to resolve hypernatremia, once resolved reduce to 100 ml q4h Kcal 2,016 Protein (gm) 93 Fluid (mL) 1,355 Add Supplement/Snack (indicate name/kcal d/c Ensure /protein ) Goal #1 Initiate TF Goal #2 Meet >75% of energy and protein needs via TF Anticipated Discharge Needs: unable to determine at this time Follow-Up By: 04/30/19 Additional Comments Follow up for TF initiation, TF at goal rate.
--- NOTE | 2019-04-28 11:40 | Progress Note ---
Assessment and Plan Sepsis: POA- Continue abx therapy and ID input at this time Multiple cavitary lung nodules: ?septic emboli v/s infectious v/s mets vs TB. DM with Hyperglycemia Hypernatremia Hypokalemia Acute v/s subacute progressive encephalopathy: has baseline dementia. Leukocytosis Acute renal failure on CKD Metabolic Acidosis Obstructive uropathy Metastatic prostate cancer/Gross Hematuria Failure to thrive Bilateral hydronephrosis Severe protein calorie malnutrition Generalized body pain Subjective Date of service: 04/28/19 Interval history: Patient is seen today for: Seen and examined at bedside; 24hour events reviewed; nursing and respiratory care staff consulted; no adverse overnight events reported to me; Objective Vital Signs - 12hr 04/28/19 04:09 Temperature 98.2 F Pulse Rate 96 H Respiratory 18 Rate Blood Pressure 93/45 O2 Sat by Pulse 99 Oximetry CBC and BMP: 04/28/19 10:27 04/28/19 10:27 ABG, PT/INR, D-dimer: PT/INR, D-dimer PT 19.2 Sec. (12.2-14.9) H 04/26/19 05:49 INR 1.59 (0.87-1.13) H 04/26/19 05:49 Abnormal lab findings: Abnormal Labs 04/26/19 04/26/19 04/26/19 05:49 05:49 05:49 WBC 16.3 H RBC Hgb 8.8 L Hct 27.5 L MCV 74 L MCH 24 L MCHC RDW 26.5 H Lymph % (Auto) Lymph # Seg Neutrophils % Seg Neuts % (Manual) 83.0 H Lymphocytes % (Manual) 11.0 L Seg Neutrophils # Seg Neutrophils # Man 13.5 H PT 19.2 H INR 1.59 H APTT 39.2 H Sodium 156 H Potassium 3.4 L Chloride 114.9 H Carbon Dioxide 14 L BUN 100 H Creatinine 7.7 H Glucose Calcium ALT Alkaline Phosphatase Albumin 04/27/19 04/27/19 04/28/19 05:02 05:02 10:27 WBC 15.0 H 13.0 H RBC 3.44 L 3.46 L Hgb 7.9 L 8.0 L Hct 25.4 L 25.2 L MCV 74 L 73 L MCH 23 L 23 L MCHC 31 L RDW 26.3 H 26.0 H Lymph % (Auto) 7.7 L Lymph # 1.0 L Seg Neutrophils % 82.6 H Seg Neuts % (Manual) Lymphocytes % (Manual) Seg Neutrophils # 10.8 H Seg Neutrophils # Man PT INR APTT Sodium 159 H Potassium Chloride 122.3 H Carbon Dioxide 16 L BUN 109 H Creatinine 9.6 H Glucose Calcium ALT < 5 L Alkaline Phosphatase 139 H Albumin 2.3 L 04/28/19 10:27 WBC RBC Hgb Hct MCV MCH MCHC RDW Lymph % (Auto) Lymph # Seg Neutrophils % Seg Neuts % (Manual) Lymphocytes % (Manual) Seg Neutrophils # Seg Neutrophils # Man PT INR APTT Sodium 155 H Potassium Chloride 118.0 H Carbon Dioxide 16 L BUN 123 H Creatinine 9.5 H Glucose 149 H Calcium 8.3 L ALT < 5 L Alkaline Phosphatase Albumin 1.9 L Allied health notes reviewed: nursing
--- NOTE | 2019-04-28 12:11 | Progress Note ---
Subjective Date of service: 04/28/19 Interval history: spoke to the assembled family and advised them there is tiny stroke in cerebellum and do not believe this needs monitoring also no CLINICAL PROGRAM DIRECTOR mets present from prostate canvcer suspect jose/ supervisor show operations degenerative disease/ Kidney failure explaioned at length Objective - Vital Sign Vital Signs - 12hr 04/28/19 04:09 Temperature 98.2 F Pulse Rate 96 H Respiratory 18 Rate Blood Pressure 93/45 O2 Sat by Pulse 99 Oximetry - Laboratory Findings CBC and BMP: 04/28/19 10:27 04/28/19 10:27 Abnormal Lab Findings: Abnormal Labs 04/26/19 04/26/19 04/26/19 05:49 05:49 05:49 WBC 16.3 H RBC Hgb 8.8 L Hct 27.5 L MCV 74 L MCH 24 L MCHC RDW 26.5 H Lymph % (Auto) Lymph # Seg Neutrophils % Seg Neuts % (Manual) 83.0 H Lymphocytes % (Manual) 11.0 L Seg Neutrophils # Seg Neutrophils # Man 13.5 H PT 19.2 H INR 1.59 H APTT 39.2 H Sodium 156 H Potassium 3.4 L Chloride 114.9 H Carbon Dioxide 14 L BUN 100 H Creatinine 7.7 H Glucose Calcium ALT Alkaline Phosphatase Albumin 04/27/19 04/27/19 04/28/19 05:02 05:02 10:27 WBC 15.0 H 13.0 H RBC 3.44 L 3.46 L Hgb 7.9 L 8.0 L Hct 25.4 L 25.2 L MCV 74 L 73 L MCH 23 L 23 L MCHC 31 L RDW 26.3 H 26.0 H Lymph % (Auto) 7.7 L Lymph # 1.0 L Seg Neutrophils % 82.6 H Seg Neuts % (Manual) Lymphocytes % (Manual) Seg Neutrophils # 10.8 H Seg Neutrophils # Man PT INR APTT Sodium 159 H Potassium Chloride 122.3 H Carbon Dioxide 16 L BUN 109 H Creatinine 9.6 H Glucose Calcium ALT < 5 L Alkaline Phosphatase 139 H Albumin 2.3 L 04/28/19 10:27 WBC RBC Hgb Hct MCV MCH MCHC RDW Lymph % (Auto) Lymph # Seg Neutrophils % Seg Neuts % (Manual) Lymphocytes % (Manual) Seg Neutrophils # Seg Neutrophils # Man PT INR APTT Sodium 155 H Potassium Chloride 118.0 H Carbon Dioxide 16 L BUN 123 H Creatinine 9.5 H Glucose 149 H Calcium 8.3 L ALT < 5 L Alkaline Phosphatase Albumin 1.9 L
--- NOTE | 2019-04-28 12:53 | Progress Note ---
Assessment and Plan - Patient Problems (1) Acute kidney injury superimposed on chronic kidney disease Current Visit: Yes Status: Acute Plan to address problem: Likely in the setting of obstructive uropathy combined with significant prerenal injury in this cachectic elderly individual with significant malnutrition and failure to thrive. Continue with current plan which includes adequate IV fluid hydration, avoidance of nephrotoxins, and maintenance of map above 65 mmHg. s/p b/l nephrostomy tube placement. Overall no significant changes noted in renal function post procedure. Had an extensive discussion with family at bedside concerning patient's overall poor prognosis. Explained to them that he is not an ideal candidate for dialysis given his extensive comorbidities, weakness, and poor prognosis in regards to his metastatic prostate cancer. I do not believe that we will see any significant recovery of renal function, and if he does get started on dialysis, he will most likely be on dialysis indefinitely. Explained this also to the family. He has no acute/emergent needs for HD today, and family will discuss amongst each other in regards to goals of care for their father. Will monitor closely. I did bring up the option of hospice/palliative care, and I do believe that such a consult would be appropriate at this time to help family make an appropriate decision. 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 s/p placement of bilateral nephrostomy tubes. (3) Hypernatremia Current Visit: Yes Status: Acute Plan to address problem: Likely as a consequence of free water deficit and dehydration. Continue with c urrent IV fluid hydration. We will change IV fluid solution to D5 half-normal saline. 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 Continue to monitor closely. May benefit from urology consultation. (5) Adult failure to thrive Current Visit: Yes Status: Acute Plan to address problem: Recommend to have dietitian see patient and evaluate. Was previously on TPN. Currently on TF. Subjective Date of service: 04/28/19 Interval history: no acute changes, minimal change in renal function post b/l nephrostomy tube placement. Objective - Vital Signs Vital signs: Vital Signs - 12hr 04/28/19 04:09 Temperature 98.2 F Pulse Rate 96 H Respiratory 18 Rate Blood Pressure 93/45 O2 Sat by Pulse 99 Oximetry - General Appearance General appearance: cachectic, chronically ill, frail, comatose EENT: ATNC Neck: no JVD Respiratory: Present: Decreased Breath Sounds Cardiology: regular, S1S2 Gastrointestinal: normal Integumentary: no rash Neurologic: other (lethargic, ) Musculoskeletal: deferred - Lab 04/28/19 10:27 04/28/19 10:27 Most recent lab results Calcium 8.3 mg/dL (8.4-10.2) L 04/28/19 10:27 - Imaging Chest x-ray: report reviewed - Allied health notes Allied health notes reviewed: nursing Medications & Allergies - Medications Allergies/Adverse Reactions: Allergies No Known Allergies Allergy (Verified 04/26/19 03:55) Home Medications: Home Medications Medication Instructions Recorded Confirmed Last Taken Type Abiraterone Acetate (Nf) 1,000 mg PO DAILY 04/26/19 04/26/19 04/20/19 History B Complex 1 tab PO BID 04/26/19 04/26/19 Unknown History Cefepime 1 gram IV Q24H 04/26/19 04/26/19 Unknown History Flomax 0.4 mg PO DAILY 04/26/19 04/26/19 Unknown History Lactated Ringers 100 ml IV CONT 04/26/19 04/26/19 Unknown History Lidocaine 1 patch TD Q24H 04/26/19 04/26/19 Unknown History Metronidazole 500 mg IV Q8H 04/26/19 04/26/19 Unknown History Tylenol 650 mg PO PRN 04/26/19 04/26/19 Unknown History Tylenol 650 mg AR PRN 04/26/19 04/26/19 Unknown History Active Medications: Generic Name Dose Route Start Last Admin Trade Name Freq PRN Reason Stop Dose Admin Acetaminophen 650 mg 04/25/19 22:18 Tylenol PO Q4H PRN Pain MILD(1-3)/Fever >100.5/CARDENAS Aspirin 300 mg 04/27/19 17:00 04/28/19 10:18 Aspirin AR 300 mg QDAY FELIPE Administration Atorvastatin Calcium 40 mg 04/27/19 22:00 04/27/19 21:09 Lipitor PO 40 mg QHS FELIPE Administration Dextrose 50 ml 04/25/19 22:18 D50w (25gm) Syringe IV Q30MIN PRN Hypoglycemia Protocol Cefepime HCl 1 gm in 100 mls @ 200 mls/hr 04/26/19 15:00 04/27/19 18:08 Cefepime/Ns 1 Gm/100 Ml IV 200 mls/hr Q24HR@1600 FELIPE Administration Protocol Metronidazole 500 mg in 100 mls @ 100 mls/hr 04/26/19 15:00 04/28/19 06:01 Flagyl 500 Mg/100 Ml IV 100 mls/hr Q8HR FELIPE Administration Dextrose/Sodium Chloride 1,000 mls @ 100 mls/hr 04/27/19 09:00 04/28/19 06:01 D5/0.45ns IV 100 mls/hr DIRECT FELIPE Administration Fluconazole 200 mg in 100 mls @ 100 mls/hr 04/28/19 13:00 Diflucan IV Q24HR FELIPE Protocol Lidocaine 1 each 04/27/19 10:00 04/28/19 10:18 Lidoderm 5% TD 1 each QDAY FELIPE Administration Magnesium Hydroxide 30 ml 04/25/19 22:18 Milk Of Magnesia PO Q4H PRN Constipation Morphine Sulfate 2 mg 04/25/19 22:18 04/26/19 22:14 Morphine IV 2 mg Q4H PRN Administration Pain, Moderate (4-6) Ondansetron HCl 4 mg 04/25/19 22:18 Zofran IV Q8H PRN Nausea And Vomiting Sodium Chloride 10 ml 04/26/19 10:00 04/28/19 11:09 Sodium Chloride Flush Syringe 10 Ml IV 10 ml BID FELIPE Administration Sodium Chloride 10 ml 04/25/19 22:18 Sodium Chloride Flush Syringe 10 Ml IV PRN PRN LINE FLUSH Tamsulosin HCl 0.4 mg 04/26/19 18:00 04/27/19 21:09 Flomax PO 0.4 mg QPM FELIPE Administration Vitamin B Complex/Vitamin C 1 each 04/26/19 22:00 04/28/19 10:18 Allbee With C PO 1 each BID FELIPE Administration
--- NOTE | 2019-04-28 12:56 | Progress Note ---
Assessment and Plan Cultures at [facility]: 04/22/2019 Blood culture: No growth 04/22/2019 fungal blood culture: No growth 04/23/2019 Blood culture: No growth 04/23/2019 catheter tip culture: 15 or more colonies of Staphylococcus hemolytic us 04/23/2019 urine culture: No growth 04/22/2019 serum cryptococcal antigen: Negative Cultures here: 04/26/2019 Blood culture: no growth 04/26/2019 urine from cath: skin lalo 04/26/2019 MRSA nasal culture: negative 04/27/2019 kidney / nephrostomy culture: Gram stain shows few yeast. A/P: 83-year-old male originally from [facility] with history of dementia, advanced CKD had dialysis twice while in [facility], metastatic prostate cancer, hypertension, failure to thrive was also on TPN while in [facility] came in to the [facility] on 04/21/2019. Next day, family noticed hematuria and hence he was taken to [facility] and was hospitalized on 04/22/2019, transfered here on 04/25/2019. ID consulted for ?sepsis. 1) Multiple cavitary lung nodules: ?septic emboli v/s infectious v/s mets. Of note, patient had a TPN central line (R subclavian) which was removed while at [facility]. TTE at [facility] unremarkable. Blood cultures also negative. 2) Acute v/s subacute progressive encephalopathy: has baseline dementia. Multifactorial. Sodium is high, creatinine also high. MRI showed subacute ischemia. 3) Leucocytosis: persistent, does not seem to have responded to broad spectrum antibiotic therapy. ?malignancy related. 4) Acute renal failure on CKD: ?component of obstructive uropathy as well as medical renal disease. Apparently was dialyzed twice in [facility]. Nephrology following. 5) Metastatic prostate cancer Recs: fluconazole added to cover yeast from nephrostomy continue empiric renally adjusted Cefepime and Vancomycin, plan to stop abx at 7 days which will be tomorrow continue airborne isolation f/u TB IGRA and AFB sputum x 3 v/s bronch specimen for AFB Overall prognosis remains poor, hospice should be considered Jaime Bowens MD, FACP [facility] ([facility]) C: [phone] O: [phone] F: [phone] Subjective Date of service: 12/14/19 Interval history: No fever. Mentation remains unchanged. Got nephrostomy tubes by IR. Family members at bedside, several questions, all answered. Objective - Exam Narrative Exam: Physical Exam: Constitutional: drowsy, non verbal Head, Ears, Nose: Normocephalic, atraumatic. External ears, nose normal Eyes: Conjunctivae/corneas clear. No icterus. No ptosis. Neck: supple, no meningeal signs Oral: unable to examine Cardiovascular: S1, S2 normal Respiratory: Good air entry, clear to auscultation bilaterally GI: Soft, non-tender; bowel sounds normal. No peritoneal signs. nephrostomy tubes + Musculoskeletal: No pedal edema, no cyanosis. Skin: No rash or abscess Hem/Lymphatic: No palpable cervical or supraclavicular nodes. No lymphangitis Psych: no agitation Neurological: drowsy, non verbal - Constitutional Vitals: Vital Signs Temp Pulse Resp BP Pulse Ox 98.2 F 96 H 18 93/45 99 04/28/19 04:09 04/28/19 04:09 04/28/19 04:09 04/28/19 04:09 04/28/19 04:09 Temperature -Last 24 Hours Temperature 98.2 F Temperature 98.4 F Temperature 97.8 F Temperature 98.4 F - Labs CBC & Chem 7: 04/28/19 10:27 04/28/19 10:27 Labs: Abnormal lab results 04/28/19 04/28/19 Range/Units 10:27 10:27 WBC 13.0 H (4.5-11.0) K/mm3 RBC 3.46 L (3.65-5.03) M/mm3 Hgb 8.0 L (11.8-15.2) gm/dl Hct 25.2 L (35.5-45.6) % MCV 73 L (84-94) fl MCH 23 L (28-32) pg RDW 26.0 H (13.2-15.2) % Lymph % (Auto) 7.7 L (13.4-35.0) % Lymph # 1.0 L (1.2-5.4) K/mm3 Seg Neutrophils % 82.6 H (40.0-70.0) % Seg Neutrophils # 10.8 H (1.8-7.7) K/mm3 Sodium 155 H (137-145) mmol/L Chloride 118.0 H (98-107) mmol/L Carbon Dioxide 16 L (22-30) mmol/L BUN 123 H (9-20) mg/dL Creatinine 9.5 H (0.8-1.5) mg/dL Glucose 149 H (75-100) mg/dL Calcium 8.3 L (8.4-10.2) mg/dL ALT < 5 L (7-56) units/L Albumin 1.9 L (3.9-5) g/dL
--- NOTE | 2019-04-28 15:09 | Progress Note ---
Assessment and Plan 83-year-old male with multiple medical issues including advanced prostate cancer with hydronephrosis and renal failure. Patient had bilateral nephrostomy tubes placed. Draining pink urine. Usually takes 24-48 hours for renal improvement. Discussed with family the patient's multiple issues stemming from advanced cancer with dementia are concerning and they may benefit from hospice consult. Discussed with family that nephrostomy tubes need to be changed every 3 months. Card provided. Subjective Date of service: 04/28/19 Principal diagnosis: Hydronephrosis Interval history: Flush both tubes at bedside. Producing pink urine. Debris flushed from tubes. Patient not responsive. Objective - Constitutional Vitals: Vital Signs - 12hr 04/28/19 04:09 Temperature 98.2 F Pulse Rate 96 H Respiratory 18 Rate Blood Pressure 93/45 O2 Sat by Pulse 99 Oximetry General appearance: Present: cachectic, other (not verbally responsive) - Gastrointestinal General gastrointestinal: Present: other (both nephrostomy tubes are draining pink urine) - Psychiatric Psychiatric: appropriate mood/affect, cooperative - Labs CBC & Chem 7: 04/28/19 10:27 04/28/19 10:27 Labs: Abnormal lab results 04/28/19 04/28/19 Range/Units 10:27 10:27 WBC 13.0 H (4.5-11.0) K/mm3 RBC 3.46 L (3.65-5.03) M/mm3 Hgb 8.0 L (11.8-15.2) gm/dl Hct 25.2 L (35.5-45.6) % MCV 73 L (84-94) fl MCH 23 L (28-32) pg RDW 26.0 H (13.2-15.2) % Lymph % (Auto) 7.7 L (13.4-35.0) % Lymph # 1.0 L (1.2-5.4) K/mm3 Seg Neutrophils % 82.6 H (40.0-70.0) % Seg Neutrophils # 10.8 H (1.8-7.7) K/mm3 Sodium 155 H (137-145) mmol/L Chloride 118.0 H (98-107) mmol/L Carbon Dioxide 16 L (22-30) mmol/L BUN 123 H (9-20) mg/dL Creatinine 9.5 H (0.8-1.5) mg/dL Glucose 149 H (75-100) mg/dL Calcium 8.3 L (8.4-10.2) mg/dL ALT < 5 L (7-56) units/L Albumin 1.9 L (3.9-5) g/dL Medications & Allergies - Medications Allergies/Adverse Reactions: Allergies No Known Allergies Allergy (Verified 04/26/19 03:55) Home Medications: Home Medications Medication Instructions Recorded Confirmed Last Taken Type Abiraterone Acetate (Nf) 1,000 mg PO DAILY 04/26/19 04/26/19 04/20/19 History B Complex 1 tab PO BID 04/26/19 04/26/19 Unknown History Cefepime 1 gram IV Q24H 04/26/19 04/26/19 Unknown History Flomax 0.4 mg PO DAILY 04/26/19 04/26/19 Unknown History Lactated Ringers 100 ml IV CONT 04/26/19 04/26/19 Unknown History Lidocaine 1 patch TD Q24H 04/26/19 04/26/19 Unknown History Metronidazole 500 mg IV Q8H 04/26/19 04/26/19 Unknown History Tylenol 650 mg PO PRN 04/26/19 04/26/19 Unknown History Tylenol 650 mg HI PRN 04/26/19 04/26/19 Unknown History Active Medications: Generic Name Dose Route Start Last Admin Trade Name Freq PRN Reason Stop Dose Admin Acetaminophen 650 mg 04/25/19 22:18 Tylenol PO Q4H PRN Pain MILD(1-3)/Fever >100.5/CARDENAS Aspirin 300 mg 04/27/19 17:00 04/28/19 10:18 Aspirin HI 300 mg QDAY FELIPE Administration Atorvastatin Calcium 40 mg 04/27/19 22:00 04/27/19 21:09 Lipitor PO 40 mg QHS FELIPE Administration Dextrose 50 ml 04/25/19 22:18 D50w (25gm) Syringe IV Q30MIN PRN Hypoglycemia Protocol Cefepime HCl 1 gm in 100 mls @ 200 mls/hr 04/26/19 15:00 04/27/19 18:08 Cefepime/Ns 1 Gm/100 Ml IV 200 mls/hr Q24HR@1600 FELIPE Administration Protocol Metronidazole 500 mg in 100 mls @ 100 mls/hr 04/26/19 15:00 04/28/19 06:01 Flagyl 500 Mg/100 Ml IV 100 mls/hr Q8HR FELIPE Administration Dextrose/Sodium Chloride 1,000 mls @ 100 mls/hr 04/27/19 09:00 04/28/19 06:01 D5/0.45ns IV 100 mls/hr DIRECT FELIPE Administration Fluconazole 200 mg in 100 mls @ 100 mls/hr 04/28/19 14:00 Diflucan IV Q24H FELIPE Protocol Lidocaine 1 each 04/27/19 10:00 04/28/19 10:18 Lidoderm 5% TD 1 each QDAY FELIPE Administration Magnesium Hydroxide 30 ml 04/25/19 22:18 Milk Of Magnesia PO Q4H PRN Constipation Morphine Sulfate 2 mg 04/25/19 22:18 04/26/19 22:14 Morphine IV 2 mg Q4H PRN Administration Pain, Moderate (4-6) Ondansetron HCl 4 mg 04/25/19 22:18 Zofran IV Q8H PRN Nausea And Vomiting Sodium Chloride 10 ml 04/26/19 10:00 04/28/19 11:09 Sodium Chloride Flush Syringe 10 Ml IV 10 ml BID FELIPE Administration Sodium Chloride 10 ml 04/25/19 22:18 Sodium Chloride Flush Syringe 10 Ml IV PRN PRN LINE FLUSH Tamsulosin HCl 0.4 mg 04/26/19 18:00 04/27/19 21:09 Flomax PO 0.4 mg QPM FELIPE Administration Vitamin B Complex/Vitamin C 1 each 04/26/19 22:00 04/28/19 10:18 Allbee With C PO 1 each BID FELIPE Administration
[2019-04-28] MEDS: FLUCONAZOLE 200 MG 200 MG/100 ML BAG IV SCH (16:00)
[2019-04-28] MEDS: ABIRATERONE PO SCH (16:34)
[2019-04-28] MEDS: ACETATE PO SCH (16:34)
[2019-04-28] MEDS: TAMSULOSIN 0.4 MG CAP PO SCH (17:52)
[2019-04-28] MEDS: CEFEPIME/NS 1 GM/100 ML 1 GM/100 ML BAG IV SCH (17:52)
--- NOTE | 2019-04-28 19:21 | Cat Scan Report ---
CT CHEST WITHOUT CONTRAST INDICATION / CLINICAL INFORMATION: Pneumonia. TECHNIQUE: Axial CT images were obtained through the chest without contrast. All CT scans at this location are p erformed using CT dose reduction for ALARA by means of automated exposure control. COMPARISON: Chest radiograph dated 04/26/19. CT abdomen dated 04/27/19 FINDINGS: HEART: No significant abnormality. THORACIC AORTA: Mild atherosclerotic calcification without acute abnormality. MEDIASTINUM and SEAN: No significant abnormality. LUNGS: Multiple bibasilar nodular densities are again noted as seen on CT abdomen. There are multiple upper lobe nodular densities as well some of which appear cavitary. Interval development of focal ri ght lower lobe consolidation. PLEURA: No significant pleural effusion. No pneumothorax. ADDITIONAL FINDINGS: None. UPPER ABDOMEN: No significant abnormality. SKELETAL SYSTEM: Multiple sclerotic foci are seen throughout the thoracic spine and chest wall as not ed on CT abdomen. IMPRESSION: 1. Multiple cavitary pulmonary nodules which may represent septic emboli versus cavitary metastases. 2. Multiple sclerotic foci likely representing osseous metastases. 3. Interval development of focal right lower lobe pneumonia. Signer Name: Jena Murphy MD Signed: 04/28/2019 7:17 PM Workstation Name: [id number]
[2019-04-29] MEDS: D5W/0.45% NACL 1,000 ML IV SCH ×2 (03:44→14:48)
[2019-04-29] MEDS: metroNIDAZOLE/NS 500 MG/100 ML 500 MG/100 ML BAG IV SCH ×3 (05:18→21:35)
[2019-04-29] MEDS: ACETATE PO SCH (05:57)
[2019-04-29] MEDS: ABIRATERONE PO SCH (05:57)
--- NOTE | 2019-04-29 09:09 | Progress Note ---
Subjective Date of service: 04/29/19 Principal diagnosis: Hydronephrosis Interval history: had discussion with family about MRI findings pooor prognosis based on profound brain atrophy very low albumin poor prognostic sign Objective - Vital Sign Vital Signs - 12hr 04/29/19 04/29/19 04/29/19 00:12 03:30 04:53 Temperature 98.2 F 98.6 F Pulse Rate 106 H 108 H Respiratory 20 22 Rate Blood Pressure 119/63 127/64 O2 Sat by Pulse 97 98 97 Oximetry - Laboratory Findings CBC and BMP: 04/28/19 10:27 04/28/19 10:27 Abnormal Lab Findings: Abnormal Labs 04/26/19 04/26/19 04/26/19 05:49 05:49 05:49 WBC 16.3 H RBC Hgb 8.8 L Hct 27.5 L MCV 74 L MCH 24 L MCHC RDW 26.5 H Lymph % (Auto) Lymph # Seg Neutrophils % Seg Neuts % (Manual) 83.0 H Lymphocytes % (Manual) 11.0 L Seg Neutrophils # Seg Neutrophils # Man 13.5 H PT 19.2 H INR 1.59 H APTT 39.2 H Sodium 156 H Potassium 3.4 L Chloride 114.9 H Carbon Dioxide 14 L BUN 100 H Creatinine 7.7 H Glucose Calcium ALT Alkaline Phosphatase Albumin 04/27/19 04/27/19 04/28/19 05:02 05:02 10:27 WBC 15.0 H 13.0 H RBC 3.44 L 3.46 L Hgb 7.9 L 8.0 L Hct 25.4 L 25.2 L MCV 74 L 73 L MCH 23 L 23 L MCHC 31 L RDW 26.3 H 26.0 H Lymph % (Auto) 7.7 L Lymph # 1.0 L Seg Neutrophils % 82.6 H Seg Neuts % (Manual) Lymphocytes % (Manual) Seg Neutrophils # 10.8 H Seg Neutrophils # Man PT INR APTT Sodium 159 H Potassium Chloride 122.3 H Carbon Dioxide 16 L BUN 109 H Creatinine 9.6 H Glucose Calcium ALT < 5 L Alkaline Phosphatase 139 H Albumin 2.3 L 04/28/19 10:27 WBC RBC Hgb Hct MCV MCH MCHC RDW Lymph % (Auto) Lymph # Seg Neutrophils % Seg Neuts % (Manual) Lymphocytes % (Manual) Seg Neutrophils # Seg Neutrophils # Man PT INR APTT Sodium 155 H Potassium Chloride 118.0 H Carbon Dioxide 16 L BUN 123 H Creatinine 9.5 H Glucose 149 H Calcium 8.3 L ALT < 5 L Alkaline Phosphatase Albumin 1.9 L
[2019-04-29 09:29] LABS: Albumin 1.7 g/dL (3.9-5); Calcium 8.4 mg/dL (8.4-10.2); Hemolysis Index 89
[2019-04-29 09:31] LABS: Alanine Aminotransferase < 5 units/L (7-56)
[2019-04-29 09:39] LABS: BUN/Creatinine Ratio 14; Blood Urea Nitrogen 121 mg/dL (9-20)
[2019-04-29 10:00] LABS: Hematocrit 23.5 % (35.5-45.6); Hemoglobin 7.5 gm/dl (11.8-15.2); Mean Corpuscular HGB Conc 32 % (32-34); Mean Corpuscular Volume 73 fl (84-94); Platelet Count 306 K/mm3 (140-440); Red Blood Count 3.24 M/mm3 (3.65-5.03)
[2019-04-29] MEDS ORDERED: SODIUM BICARB 8.4% 50 MEQ/50 ML SYRINGE IV ONE (10:06)
[2019-04-29 10:09] LABS: Red Cell Distribution Width 26.7 % (13.2-15.2)
[2019-04-29] MEDS: LIDOCAINE 5% 1 EACH PATCH TD SCH (10:28)
[2019-04-29] MEDS: B COMPLEX W/VITAMIN C TAB PO SCH ×2 (10:29→21:36)
[2019-04-29] MEDS: ASPIRIN 300 MG RECT SUPP PR SCH (10:31)
--- NOTE | 2019-04-29 12:11 | Progress Note ---
Assessment and Plan Cultures at [facility]: 04/22/2019 Blood culture: No growth 04/22/2019 fungal blood culture: No growth 04/23/2019 Blood culture: No growth 04/23/2019 catheter tip culture: 15 or more colonies of Staphylococcus hemolytic us 04/23/2019 urine culture: No growth 04/22/2019 serum cryptococcal antigen: Negative Cultures here: 04/26/2019 Blood culture: no growth 04/26/2019 urine from cath: Leticia albicans 04/26/2019 MRSA nasal culture: negative 04/27/2019 kidney / nephrostomy culture: Leticia albicans A/P: 83-year-old male originally from [facility] with history of dementia, advanced CKD had dialysis twice while in [facility], metastatic prostate cancer, hypertension, failure to thrive was also on TPN while in [facility] came in to the [facility] on 04/21/2019. Next day, family noticed hematuria and hence he was taken to [facility] and was hospitalized on 04/22/2019, transfered here on 04/25/2019. ID consulted for ?sepsis. 1) Multiple cavitary lung nodules: ?septic emboli v/s infectious v/s mets. Of note, patient had a TPN central line (R subclavian) which was removed while at [facility], tip culture grew Staph hemolyticus. TTE at [facility] unremarkable. Blood cultures also negative. 2) Acute v/s subacute progressive encephalopathy: has baseline dementia. Multifactorial. Sodium is high, creatinine also high. MRI showed subacute ischemia. 3) Leucocytosis: persistent, does not seem to have responded to broad spectrum antibiotic therapy. ?malignancy related. 4) Acute renal failure on CKD: ?component of obstructive uropathy as well as medical renal disease. Apparently was dialyzed twice in [facility]. Nephrology following. 5) Metastatic prostate cancer Recs: CT chest images reviewed, my suspicion for TB is quite low based on the b/l scattered cavitary nodules. Agree that septic emboli and possible mets are more likely. D/brandon Cefepime after completing 7 days and cultures have remained negative for any GNR continue fluconazole to cover Leticia from nephrostomy continue IV Vancomycin for minimum 2-3 weeks (possible septic emboli to the lungs) continue airborne isolation f/u TB IGRA and AFB sputum x 3 v/s bronch specimen for AFB Overall prognosis remains poor, hospice should be considered. Dr. Parker taking over tomorrow. Jaime Bowens MD, FACP [facility] ([facility]) C: [phone] O: [phone] F: [phone] Subjective Date of service: 04/29/19 Principal diagnosis: Hydronephrosis Interval history: No fever. Mentation remains poor. Family members at bedside. Objective - Exam Narrative Exam: Physical Exam: Constitutional: drowsy, non verbal. Cachexia + Head, Ears, Nose: Normocephalic, atraumatic. External ears, nose normal Eyes: Conjunctivae/corneas clear. No icterus. No ptosis. Neck: supple, no meningeal signs Oral: unable to examine Cardiovascular: S1, S2 normal Respiratory: Good air entry, clear to auscultation bilaterally GI: Soft, bowel sounds normal. No peritoneal signs. nephrostomy tubes + Musculoskeletal: No pedal edema, no cyanosis. Skin: No rash or abscess Hem/Lymphatic: No palpable cervical or supraclavicular nodes. No lymphangitis Psych: no agitation Neurological: drowsy, non verbal - Constitutional Vitals: Vital Signs Temp Pulse Resp BP Pulse Ox 98.6 F 108 H 22 127/64 97 04/29/19 04:53 04/29/19 04:53 04/29/19 04:53 04/29/19 04:53 04/29/19 04:53 Temperature -Last 24 Hours Temperature 98.6 F Temperature 98.2 F Temperature 97.0 F - Labs CBC & Chem 7: 04/29/19 08:35 04/29/19 08:35 Labs: Abnormal lab results 04/29/19 04/29/19 Range/Units 08:35 08:35 WBC 14.7 H (4.5-11.0) K/mm3 RBC 3.24 L (3.65-5.03) M/mm3 Hgb 7.5 L (11.8-15.2) gm/dl Hct 23.5 L (35.5-45.6) % MCV 73 L (84-94) fl MCH 23 L (28-32) pg RDW 26.7 H (13.2-15.2) % Sodium 157 H (137-145) mmol/L Chloride 118.8 H (98-107) mmol/L Carbon Dioxide 16 L (22-30) mmol/L BUN 121 H (9-20) mg/dL Creatinine 8.4 H (0.8-1.5) mg/dL Glucose 168 H (75-100) mg/dL ALT < 5 L (7-56) units/L Albumin 1.7 L (3.9-5) g/dL - Imaging and cardiology CT scan - chest: report reviewed, image reviewed (scattered cavitary nodules)
--- NOTE | 2019-04-29 13:10 | Progress Note ---
Assessment and Plan - Patient Problems (1) Acute kidney injury superimposed on chronic kidney disease Current Visit: Yes Status: Acute Plan to address problem: Likely in the setting of obstructive uropathy combined with significant prerenal injury in this cachectic elderly individual with significant malnutrition and failure to thrive. Continue with current plan which includes adequate IV fluid hydration, avoidance of nephrotoxins, and maintenance of map above 65 mmHg. s/p b/l nephrostomy tube placement. Overall slight improvement noted in renal function post procedure Had an extensive discussion with family at bedside concerning patient's overall poor prognosis. Explained to them that he is not an ideal candidate for dialysis given his exten sive comorbidities, weakness, and poor prognosis in regards to his metastatic prostate cancer. I do not believe that we will see any significant recovery of renal function, and if he does get started on dialysis, he will most likely be on dialysis indefinitely. Explained this also to the family. He has no acute/emergent needs for HD today, and family will discuss amongst each other in regards to goals of care for their father. Will monitor closely. I did bring up the option of hospice/palliative care, and I do believe that such a consult would be appropriate at this time to help family make an appropriate decision. 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 s/p placement of bilateral nephrostomy tubes. (3) Hypernatremia Current Visit: Yes Status: Acute Plan to address problem: Likely as a consequence of free water deficit and dehydration. Continue with current IV fluid hydration. We will change IV fluid solution to D5 half-normal saline. 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 Continue to monitor closely. May benefit from urology consultation. (5) Adult failure to thrive Current Visit: Yes Status: Acute Plan to address problem: Recommend to have dietitian see patient and evaluate. Was previously on TPN. Currently on TF. Subjective Date of service: 04/29/19 Principal diagnosis: Hydronephrosis Interval history: No acute changes overnight. Bilateral nephrostomy tubes noted the drainage right segmental left. Renal function labs noted with slight improvement. Harsha smyth remains essentially comatose and unresponsive at this time. Objective - Vital Signs Vital signs: Vital Signs - 12hr 12/15/19 12/15/19 03:30 04:53 Temperature 98.6 F Pulse Rate 108 H Respiratory 22 Rate Blood Pressure 127/64 O2 Sat by Pulse 98 97 Oximetry - General Appearance General appearance: chronically ill, frail, comatose EENT: ATNC Neck: no JVD, no thyromegaly Respiratory: Present: Decreased Breath Sounds Cardiology: regular, S1S2 Gastrointestinal: normal, normoactive bowel sounds Integumentary: no rash, warm and dry Neurologic: other (lethargic) Musculoskeletal: deferred - Lab 04/29/19 08:35 04/29/19 08:35 Most recent lab results Calcium 8.4 mg/dL (8.4-10.2) 04/29/19 08:35 - Imaging Chest x-ray: report reviewed - Allied health notes Allied health notes reviewed: nursing Medications & Allergies - Medications Allergies/Adverse Reactions: Allergies No Known Allergies Allergy (Verified 04/26/19 03:55) Home Medications: Home Medications Medication Instructions Recorded Confirmed Last Taken Type Abiraterone Acetate (Nf) 1,000 mg PO DAILY 04/26/19 04/26/19 04/20/19 History B Complex 1 tab PO BID 04/26/19 04/26/19 Unknown History Cefepime 1 gram IV Q24H 04/26/19 04/26/19 Unknown History Flomax 0.4 mg PO DAILY 04/26/19 04/26/19 Unknown History Lactated Ringers 100 ml IV CONT 04/26/19 04/26/19 Unknown History Lidocaine 1 patch TD Q24H 04/26/19 04/26/19 Unknown History Metronidazole 500 mg IV Q8H 04/26/19 04/26/19 Unknown History Tylenol 650 mg PO PRN 04/26/19 04/26/19 Unknown History Tylenol 650 mg KS PRN 04/26/19 04/26/19 Unknown History Active Medications: Generic Name Dose Route Start Last Admin Trade Name Freq PRN Reason Stop Dose Admin Acetaminophen 650 mg 04/25/19 22:18 Tylenol PO Q4H PRN Pain MILD(1-3)/Fever >100.5/CARDENAS Aspirin 300 mg 04/27/19 17:00 04/29/19 10:31 Aspirin KS 300 mg QDAY FELIPE Administration Atorvastatin Calcium 40 mg 04/27/19 22:00 04/28/19 22:37 Lipitor PO 40 mg QHS FELIPE Administration Dextrose 50 ml 04/25/19 22:18 D50w (25gm) Syringe IV Q30MIN PRN Hypoglycemia Protocol Cefepime HCl 1 gm in 100 mls @ 200 mls/hr 04/26/19 15:00 04/28/19 17:52 Cefepime/Ns 1 Gm/100 Ml IV 200 mls/hr Q24HR@1600 FELIPE Administration Protocol Metronidazole 500 mg in 100 mls @ 100 mls/hr 04/26/19 15:00 04/29/19 05:18 Flagyl 500 Mg/100 Ml IV 100 mls/hr Q8HR FELIPE Administration Dextrose/Sodium Chloride 1,000 mls @ 100 mls/hr 04/27/19 09:00 04/29/19 03:44 D5/0.45ns IV 100 mls/hr DIRECT FELIPE Administration Fluconazole 200 mg in 100 mls @ 100 mls/hr 04/28/19 14:00 04/28/19 16:00 Diflucan IV 100 mls/hr Q24H FELIPE Administration Protocol Lidocaine 1 each 04/27/19 10:00 04/29/19 10:28 Lidoderm 5% TD 1 each QDAY FELIPE Administration Magnesium Hydroxide 30 ml 04/25/19 22:18 Milk Of Magnesia PO Q4H PRN Constipation Morphine Sulfate 2 mg 04/25/19 22:18 04/26/19 22:14 Morphine IV 2 mg Q4H PRN Administration Pain, Moderate (4-6) Ondansetron HCl 4 mg 04/25/19 22:18 Zofran IV Q8H PRN Nausea And Vomiting Sodium Chloride 10 ml 04/26/19 10:00 04/29/19 10:30 Sodium Chloride Flush Syringe 10 Ml IV 10 ml BID FELIPE Administration Sodium Chloride 10 ml 04/25/19 22:18 Sodium Chloride Flush Syringe 10 Ml IV PRN PRN LINE FLUSH Tamsulosin HCl 0.4 mg 04/26/19 18:00 04/28/19 17:52 Flomax PO 0.4 mg QPM FELIPE Administration Vitamin B Complex/Vitamin C 1 each 04/26/19 22:00 04/29/19 10:29 Allbee With C PO 1 each BID FELIPE Administration
--- NOTE | 2019-04-29 13:14 | Progress Note ---
Subjective Date of service: 04/29/19 Principal diagnosis: Hydronephrosis Interval history: Patient is seen today for: Seen and examined at bedside; 24hour events reviewed; nursing and respiratory care staff consulted; no adverse overnight events reported to me; Objective Vital Signs - 12hr 04/29/19 04/29/19 03:30 04:53 Temperature 98.6 F Pulse Rate 108 H Respiratory 22 Rate Blood Pressure 127/64 O2 Sat by Pulse 98 97 Oximetry CBC and BMP: 04/29/19 08:35 04/29/19 08:35 ABG, PT/INR, D-dimer: PT/INR, D-dimer PT 19.2 Sec. (12.2-14.9) H 04/26/19 05:49 INR 1.59 (0.87-1.13) H 04/26/19 05:49 Abnormal lab findings: Abnormal Labs 04/26/19 04/26/19 04/26/19 05:49 05:49 05:49 WBC 16.3 H RBC Hgb 8.8 L Hct 27.5 L MCV 74 L MCH 24 L MCHC RDW 26.5 H Lymph % (Auto) Lymph # Seg Neutrophils % Seg Neuts % (Manual) 83.0 H Lymphocytes % (Manual) 11.0 L Seg Neutrophils # Seg Neutrophils # Man 13.5 H PT 19.2 H INR 1.59 H APTT 39.2 H Sodium 156 H Potassium 3.4 L Chloride 114.9 H Carbon Dioxide 14 L BUN 100 H Creatinine 7.7 H Glucose Calcium ALT Alkaline Phosphatase Albumin 04/27/19 04/27/19 04/28/19 05:02 05:02 10:27 WBC 15.0 H 13.0 H RBC 3.44 L 3.46 L Hgb 7.9 L 8.0 L Hct 25.4 L 25.2 L MCV 74 L 73 L MCH 23 L 23 L MCHC 31 L RDW 26.3 H 26.0 H Lymph % (Auto) 7.7 L Lymph # 1.0 L Seg Neutrophils % 82.6 H Seg Neuts % (Manual) Lymphocytes % (Manual) Seg Neutrophils # 10.8 H Seg Neutrophils # Man PT INR APTT Sodium 159 H Potassium Chloride 122.3 H Carbon Dioxide 16 L BUN 109 H Creatinine 9.6 H Glucose Calcium ALT < 5 L Alkaline Phosphatase 139 H Albumin 2.3 L 04/28/19 04/29/19 04/29/19 10:27 08:35 08:35 WBC 14.7 H RBC 3.24 L Hgb 7.5 L Hct 23.5 L MCV 73 L MCH 23 L MCHC RDW 26.7 H Lymph % (Auto) Lymph # Seg Neutrophils % Seg Neuts % (Manual) Lymphocytes % (Manual) Seg Neutrophils # Seg Neutrophils # Man PT INR APTT Sodium 155 H 157 H Potassium Chloride 118.0 H 118.8 H Carbon Dioxide 16 L 16 L BUN 123 H 121 H Creatinine 9.5 H 8.4 H Glucose 149 H 168 H Calcium 8.3 L ALT < 5 L < 5 L Alkaline Phosphatase Albumin 1.9 L 1.7 L Allied health notes reviewed: nursing
--- NOTE | 2019-04-29 14:23 | Progress Note ---
Assessment and Plan Assessment and plan: Patient is a 83-year-old male originally from [place] with history of dementia, advanced CKD had dialysis twice while in [place], metastatic prostate cancer, hypertension, failure to thrive was also on TPN while in [place] came in to the [facility] on 04/21/2019. Next day, family noticed hematuria and hence he was taken to [facility] and was hospitalized on 04/22/2019, transferred here on 04/25/2019 secondary to Enviromental crisis at [place] forcing the facility to transfer all inpatients. ID consulted for ?sepsis. cxr: 04/26/19 Chronic interstitial changes. Questionable left lung opacity as described. Suggestion of skin ulceration in the left axillary region, correlate with the patient. Consider further evaluation with CT chest with contrast if needed. CT chest: cavitory lesions, * Review of records from [place] shows that the patient had a 1.0 x 1.1 cm right thyroid nodule. There is also on imaging studies including CT of the chest multiple bilateral scattered ill-defined pulmonary nodules surrounded by groundglass opacities many of the nodules are cavitary component it was discussed that the findings were concerning for multifocal infection possibly secondary to septic emboli from cavitary organism including atypical and fungal organisms. * Work-up at [place] included vancomycin which was started on 04 22 with blood culture drawn prior to initiation of the antibiotics subsequently antibiotics was changed from Zosyn to cefepime and Flagyl on 04 22 due to renal function abnormalities. Patient remained n.p.o. for speech evaluation due to asp iration precautions and was placed on airborne precaution. * Creatinine was also noted to be elevated at 5.9 with prior creatinine being 2.6 in March 2019 there was concern of possible obstructive uropathy from prostate malignancy along with breathing renal versus ATN from poor p.o. intake. * Hematuria which was noted was thought to be secondary to prostate cancer * Elevated alk phos was also noted concerning for mets to the bone * He did have a previous right-sided PICC line that was removed in the setting of worsening leukocytosis and fever. The tip of the catheter had been growing coagulase-negative staph. This PICC line was initially placed secondary to TPN needs. Early on IV fluids here in our hospital. * Small focus of CVA noted on MRI BRAIN * Mild to moderate hydronephrosis on CT abdomen and pelvis, with presumed mestatic lesion * Although the history is hazy patient's son believes he had testicular removal surgery while in [place]. Sepsis: POA- Continue abx therapy and ID input at this time Multiple cavitary lung nodules: ?septic emboli v/s infectious v/s mets vs TB. CVA DM with Hyperglycemia Hypernatremia Hypokalemia Acute v/s subacute progressive encephalopathy: has baseline dementia. Leukocytosis Acute renal failure on CKD severe Metabolic Acidosis Obstructive uropathy Metastatic prostate cancer/Gross Hematuria Failure to thrive Bilateral hydronephrosis Severe protein calorie malnutrition Generalized body pain Plan Continue supportive care IVF per Nephrology Discussed poor prognosis with son Pulmonary, ID ASA and STATIN Rehab assessment still with persistently elevated creatnine despite nephrostomy tube but not worsening. Family at this time not willing for Hospice, Will see if [facility] will consider Dialysis. Unable to get CT chest with contrast due to renal function TB IGR pending Tolerating on Tube feeds continue empiric antibiotic, place patient about isolation Will follow AFB cultures from [facility] Stop lidocain patch to see if patient will wake up Continue to monitor Ballet Dancer consult-continue tube feed Pain control Will consult, Urology outpatient dvt/gi prophy Patient son verbalized understanding of patients critical condition and grave prognosis, wants to see how he does post nephrostomy tube Very poor prognosis History Interval history: Patient seen and examined, not responsive, very lethargic, glazed appearances, not following any commands. still very weak. S/P Bilateral Nephrostomy tube Hospitalist Physical - Physical exam Narrative exam: VITAL SIGNS: Reviewed. GENERAL: The patient appears chronically ill, encephalopathic, cachectic moans and groans., Vital signs as documented. HEAD: No signs of head trauma. temporal wasting noted EYES: Pupils are equal. Extraocular motions intact. EARS: Hearing grossly intact. MOUTH: Oropharynx is normal. NECK: No adenopathy, no JVD. CHEST: Chest with diminished breath sounds bilaterally. rapid, No wheezes, rales, or rhonchi. CARDIAC: Regular rate and rhythm. S1 and S2, without murmurs, gallops, or rubs. VASCULAR: No Edema. Peripheral pulses normal and equal in all extremities. ABDOMEN: Soft, non tender and non distended. [place], No rebound or guarding, and no masses palpated. Bowel Sounds normal. MUSCULOSKELETAL: Extremities without clubbing, cyanosis or edema. NEUROLOGIC EXAM: Disoriented, awake not following any commands. PSYCHIATRIC: unable to access SKIN: Warm to the touch, Mirza catheter in place, Bilateral Nephrostomy tube in place. detail exam as documented in skin assessment - Constitutional Vitals: Temp Pulse Resp BP Pulse Ox 98.6 F 108 H 22 127/64 97 04/29/19 04:53 04/29/19 04:53 04/29/19 04:53 04/29/19 04:53 04/29/19 04:53 General appearance: Present: cachectic, other (not verbally responsive) Results - Labs CBC & Chem 7: 04/29/19 08:35 04/29/19 08:35 Labs: Laboratory Last Values WBC 14.7 K/mm3 (4.5-11.0) H 04/29/19 08:35 RBC 3.24 M/mm3 (3.65-5.03) L 04/29/19 08:35 Hgb 7.5 gm/dl (11.8-15.2) L 04/29/19 08:35 Hct 23.5 % (35.5-45.6) L 04/29/19 08:35 MCV 73 fl (84-94) L 04/29/19 08:35 MCH 23 pg (28-32) L 04/29/19 08:35 MCHC 32 % (32-34) 04/29/19 08:35 RDW 26.7 % (13.2-15.2) H 04/29/19 08:35 Plt Count 306 K/mm3 (140-440) 04/29/19 08:35 Lymph % (Auto) 7.7 % (13.4-35.0) L 04/28/19 10:27 [place] % (Auto) 6.3 % (0.0-7.3) 04/28/19 10:27 Eos % (Auto) 2.8 % (0.0-4.3) 04/28/19 10:27 Baso % (Auto) 0.6 % (0.0-1.8) 04/28/19 10:27 Lymph # 1.0 K/mm3 (1.2-5.4) L 04/28/19 10:27 [place] # 0.8 K/mm3 (0.0-0.8) 04/28/19 10:27 Eos # 0.4 K/mm3 (0.0-0.4) 04/28/19 10:27 Baso # 0.1 K/mm3 (0.0-0.1) 04/28/19 10:27 Add Manual Diff Complete 04/26/19 05:49 Total Counted 100 04/26/19 05:49 Seg Neutrophils % 82.6 % (40.0-70.0) H 04/28/19 10:27 Seg Neuts % (Manual) 83.0 % (40.0-70.0) H 04/26/19 05:49 Band Neutrophils % 0 % 04/26/19 05:49 Lymphocytes % (Manual) 11.0 % (13.4-35.0) L 04/26/19 05:49 Reactive Lymphs % (Man) 0 % 04/26/19 05:49 Monocytes % (Manual) 5.0 % (0.0-7.3) 04/26/19 05:49 Eosinophils % (Manual) 1.0 % (0.0-4.3) 04/26/19 05:49 Basophils % (Manual) 0 % (0.0-1.8) 04/26/19 05:49 Metamyelocytes % 0 % 04/26/19 05:49 Myelocytes % 0 % 04/26/19 05:49 Promyelocytes % 0 % 04/26/19 05:49 Blast Cells % 0 % 04/26/19 05:49 Nucleated RBC % Not Reportable 04/26/19 05:49 Seg Neutrophils # 10.8 K/mm3 (1.8-7.7) H 04/28/19 10:27 Seg Neutrophils # Man 13.5 K/mm3 (1.8-7.7) H 04/26/19 05:49 Band Neutrophils # 0.0 K/mm3 04/26/19 05:49 Lymphocytes # (Manual) 1.8 K/mm3 (1.2-5.4) 04/26/19 05:49 Abs React Lymphs (Man) 0.0 K/mm3 04/26/19 05:49 Monocytes # (Manual) 0.8 K/mm3 (0.0-0.8) 04/26/19 05:49 Eosinophils # (Manual) 0.2 K/mm3 (0.0-0.4) 04/26/19 05:49 Basophils # (Manual) 0.0 K/mm3 (0.0-0.1) 04/26/19 05:49 Metamyelocytes # 0.0 K/mm3 04/26/19 05:49 Myelocytes # 0.0 K/mm3 04/26/19 05:49 Promyelocytes # 0.0 K/mm3 04/26/19 05:49 Blast Cells # 0.0 K/mm3 04/26/19 05:49 WBC Morphology Not Reportable 04/26/19 05:49 Hypersegmented Neuts Not Reportable 04/26/19 05:49 Hyposegmented Neuts Not Reportable 04/26/19 05:49 Hypogranular Neuts Not Reportable 04/26/19 05:49 Smudge Cells Not Reportable 04/26/19 05:49 Toxic Granulation Not Reportable 04/26/19 05:49 Toxic Vacuolation Not Reportable 04/26/19 05:49 Dohle Bodies Not Reportable 04/26/19 05:49 Pelger-Huet Anomaly Not Reportable 04/26/19 05:49 Félix Rods Not Reportable 04/26/19 05:49 Platelet Estimate Consistent w auto 04/26/19 05:49 Clumped Platelets Not Reportable 04/26/19 05:49 Plt Clumps, EDTA Not Reportable 04/26/19 05:49 Large Platelets Not Reportable 04/26/19 05:49 Giant Platelets Not Reportable 04/26/19 05:49 Platelet Satelliting Not Reportable 04/26/19 05:49 Plt Morphology Comment Not Reportable 04/26/19 05:49 RBC Morphology Not Reportable 04/26/19 05:49 Dimorphic RBCs Not Reportable 04/26/19 05:49 Polychromasia Not Reportable 04/26/19 05:49 Hypochromasia 1+ 04/26/19 05:49 Poikilocytosis Not Reportable 04/26/19 05:49 Anisocytosis 3+ 04/26/19 05:49 Microcytosis 1+ 04/26/19 05:49 Macrocytosis Not Reportable 04/26/19 05:49 Spherocytes Not Reportable 04/26/19 05:49 Pappenheimer Bodies Not Reportable 04/26/19 05:49 Sickle Cells Not Reportable 04/26/19 05:49 Target Cells Rare 04/26/19 05:49 Tear Drop Cells Not Reportable 04/26/19 05:49 Ovalocytes Not Reportable 04/26/19 05:49 Helmet Cells Not Reportable 04/26/19 05:49 [place] Bodies Not Reportable 04/26/19 05:49 [place] Rings Not Reportable 04/26/19 05:49 [place] Cells Not Reportable 04/26/19 05:49 Bite Cells Not Reportable 04/26/19 05:49 Crenated Cell Not Reportable 04/26/19 05:49 Elliptocytes Not Reportable 04/26/19 05:49 Acanthocytes (Spur) Not Reportable 04/26/19 05:49 Rouleaux Not Reportable 04/26/19 05:49 Hemoglobin C Crystals Not Reportable 04/26/19 05:49 Schistocytes Not Reportable 04/26/19 05:49 Malaria parasites Not Reportable 04/26/19 05:49 Tayo Bodies Not Reportable 04/26/19 05:49 Hem Pathologist Commnt No 04/26/19 05:49 PT 19.2 Sec. (12.2-14.9) H 04/26/19 05:49 INR 1.59 (0.87-1.13) H 04/26/19 05:49 APTT 39.2 Sec. (24.2-36.6) H 04/26/19 05:49 Sodium 157 mmol/L (137-145) H 04/29/19 08:35 Potassium 4.7 mmol/L (3.6-5.0) D 04/29/19 08:35 Chloride 118.8 mmol/L (98-107) H 04/29/19 08:35 Carbon Dioxide 16 mmol/L (22-30) L 04/29/19 08:35 Anion Gap 27 mmol/L 04/29/19 08:35 BUN 121 mg/dL (9-20) H 04/29/19 08:35 Creatinine 8.4 mg/dL (0.8-1.5) H 04/29/19 08:35 Estimated GFR 7 ml/min 04/29/19 08:35 BUN/Creatinine Ratio 14 % 04/29/19 08:35 Glucose 168 mg/dL (75-100) H 04/29/19 08:35 POC Glucose 97 (70-105) 04/26/19 16:32 Calcium 8.4 mg/dL (8.4-10.2) 04/29/19 08:35 Total Bilirubin 0.40 mg/dL (0.1-1.2) 04/29/19 08:35 AST 35 units/L (5-40) 04/29/19 08:35 ALT < 5 units/L (7-56) L 04/29/19 08:35 Alkaline Phosphatase 126 units/L (35-129) 04/29/19 08:35 Total Protein 7.7 g/dL (6.3-8.2) 04/29/19 08:35 Albumin 1.7 g/dL (3.9-5) L 04/29/19 08:35 Albumin/Globulin Ratio 0.3 % 04/29/19 08:35 Random Vancomycin 27.3 ug/mL (0-40.0) 04/28/19 05:09 AFB Identification 04/27/19 09:50 Active Medications - Current Medications Current Medications: Generic Name Dose Route Start Last Admin Trade Name Freq PRN Reason Stop Dose Admin Acetaminophen 650 mg 04/25/19 22:18 Tylenol PO Q4H PRN Pain MILD(1-3)/Fever >100.5/CARDENAS Aspirin 300 mg 04/27/19 17:00 04/29/19 10:31 Aspirin MD 300 mg QDAY FELIPE Administration Atorvastatin Calcium 40 mg 04/27/19 22:00 04/28/19 22:37 Lipitor PO 40 mg QHS FELIPE Administration Dextrose 50 ml 04/25/19 22:18 D50w (25gm) Syringe IV Q30MIN PRN Hypoglycemia Protocol Cefepime HCl 1 gm in 100 mls @ 200 mls/hr 04/26/19 15:00 04/28/19 17:52 Cefepime/Ns 1 Gm/100 Ml IV 200 mls/hr Q24HR@1600 FELIPE Administration Protocol Metronidazole 500 mg in 100 mls @ 100 mls/hr 04/26/19 15:00 04/29/19 05:18 Flagyl 500 Mg/100 Ml IV 100 mls/hr Q8HR FELIPE Administration Dextrose/Sodium Chloride 1,000 mls @ 100 mls/hr 04/27/19 09:00 04/29/19 03:44 D5/0.45ns IV 100 mls/hr DIRECT FELIPE Administration Fluconazole 200 mg in 100 mls @ 100 mls/hr 04/28/19 14:00 04/28/19 16:00 Diflucan IV 100 mls/hr Q24H FELIPE Administration Protocol Lidocaine 1 each 04/27/19 10:00 04/29/19 10:28 Lidoderm 5% TD 1 each QDAY FELIPE Administration Magnesium Hydroxide 30 ml 04/25/19 22:18 Milk Of Magnesia PO Q4H PRN Constipation Morphine Sulfate 2 mg 04/25/19 22:18 04/26/19 22:14 Morphine IV 2 mg Q4H PRN Administration Pain, Moderate (4-6) Ondansetron HCl 4 mg 04/25/19 22:18 Zofran IV Q8H PRN Nausea And Vomiting Sodium Chloride 10 ml 04/26/19 10:00 04/29/19 10:30 Sodium Chloride Flush Syringe 10 Ml IV 10 ml BID FELIPE Administration Sodium Chloride 10 ml 04/25/19 22:18 Sodium Chloride Flush Syringe 10 Ml IV PRN PRN LINE FLUSH Tamsulosin HCl 0.4 mg 04/26/19 18:00 04/28/19 17:52 Flomax PO 0.4 mg QPM FELIPE Administration Vitamin B Complex/Vitamin C 1 each 04/26/19 22:00 04/29/19 10:29 Allbee With C PO 1 each BID FELIPE Administration Nutrition/Malnutrition Assess - Dietary Evaluation Nutrition/Malnutrition Findings: Nutrition Notes Start: 04/26/19 10:43 Freq: Status: Active Protocol: Document 04/27/19 12:54 CT (Rec: 04/27/19 13:18 CT [id number]) Co-Sign 04/27/19 12:54 LM Nutrition Notes Need for Assessment generated from: MD Order Initial or Follow up Reassessment Current Diagnosis CKD(stage I-IV),Diabetes, Hypertension Other Pertinent Diagnosis prostate cancer, hematuria, arthritis, dementia, poss TB Current Diet NPO Labs/Tests Na 159 BUN 109 Cr 9.6 Pertinent Medications 1/2NSD5 100 ml/hr Flagyl Height 6 ft 3 in Weight 56.6 kg [place] Body Weight (kg) 89.09 BMI 15.5 Subjective/Other Information Consult for TF order. Pt getting a DH placed. Burn Absent Trauma Absent GI Symptoms None Current % PO Negligible Minimum of two criteria Yes Energy Intake (severe) < or equal to 50% Estimated Energy Requirement > or equal to 5 days Interpretation of Weight Loss (severe) >10% in 6 months Reduced Director Of Application Development Strength Measurably Reduced (severe) #1 Nutrition Diagnosis Malnutrition Diagnosis Progress(for reassessment Continues documentation) Is patient on ventilator? No Is Patient Ambulatory and/or Out of Bed No REE-([facility]-confined to bed) 1617.336 Kcal/Kg value to use for calculation 35 Approximate Energy Requirements Using 1981 kcal/Kg Calculation Used for Recommendations Kcal/kg Additional Notes Protein needs: 76-95g/kg/day ( 1.2-1.5 g/kg/day) Fluid needs: 1 ml/kcal/day Nutrition Intervention Change Diet Order: Initiate TF Nutrition Support: Jevity 1.2 at 70 ml/hr goal rate Flush 200 ml q4h to resolve hypernatremia, once resolved reduce to 100 ml q4h Kcal 2,016 Protein (gm) 93 Fluid (mL) 1,355 Add Supplement/Snack (indicate name/kcal d/c Ensure /protein ) Goal #1 Initiate TF Goal #2 Meet >75% of energy and protein needs via TF Anticipated Discharge Needs: unable to determine at this time Follow-Up By: 04/30/19 Additional Comments Follow up for TF initiation, TF at goal rate. - Malnutrition Assessment Minimum of two criteria: Yes - Attestation Statement I have reviewed and agreed w/ Malnutrition eval & tx plan: Yes
[2019-04-29] MEDS: FLUCONAZOLE 200 MG 200 MG/100 ML BAG IV SCH (16:52)
[2019-04-29] MEDS: CEFEPIME/NS 1 GM/100 ML 1 GM/100 ML BAG IV SCH (18:27)
[2019-04-29] MEDS: IPRATROPIUM/ALBUTEROL SULFATE 3 ML AMPUL.NEB IH SCH (21:28)
[2019-04-30] MEDS: MORPHINE 2 MG/1 ML INJ IV PRN (02:08)
[2019-04-30] MEDS: ABIRATERONE PO SCH (05:24)
[2019-04-30] MEDS: ACETATE PO SCH (05:24)
[2019-04-30] MEDS: metroNIDAZOLE/NS 500 MG/100 ML 500 MG/100 ML BAG IV SCH (05:24)
[2019-04-30 06:42] VITALS: BP 87/41
--- NOTE | 2019-04-30 07:47 | Hem/Onc Progress Note ---
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 History of prostate cancer. Radiology mentions bone lesions. 2. History of lymph nodes. 3. Poor nutrition. 4. Infection issues - h/o dialysis. 5. Anemia. 6. Leukocytosis. 7. Low MCV. 8. Calcium is not elevated. 9. Alkaline phosphatase is slightly elevated. PSA and follow the patient. His overall performance status is not good. Multiple other physicians are following him. - Patient Problems (1) Prostate cancer Status: Acute Subjective Date of service: 04/30/19 Principal diagnosis: stage Iv prostate ca Interval history: d/w son Objective - Exam Narrative Exam: Pain - none General appearance - minimally moving Performance status complete dependence Eyes - no icterus ENT - no bleeding LNs cervical not palpable Neck - no LN Respiratory Normal Breath sounds - CTA anteriorly CVS S1 S2 + Extremities no edema General GI Soft Rectal deferred male - ORCHIECTOMY Skin warm Musculoskeletal -moves arms Neurologically non verbal - Constitutional Vitals: Last Vital Signs Temp 102.4 F H 04/30/19 05:28 Pulse 116 H 04/30/19 05:28 Resp 40 H 04/30/19 05:28 BP 87/41 04/30/19 05:28 Pulse Ox 93 04/30/19 05:28 - Labs Lab Results: Laboratory Results - last 24 hr 04/29/19 04/29/19 04/29/19 08:35 08:35 16:11 WBC 14.7 H RBC 3.24 L Hgb 7.5 L Hct 23.5 L MCV 73 L MCH 23 L MCHC 32 RDW 26.7 H Plt Count 306 POC ABG pH 7.411 POC ABG pCO2 29.6 L POC ABG pO2 52 L POC ABG HCO3 18.8 POC ABG Total CO2 20 POC ABG O2 Sat 87 POC ABG Base Excess -6 FiO2 32 Sodium 157 H Potassium 4.7 D Chloride 118.8 H Carbon Dioxide 16 L Anion Gap 27 BUN 121 H Creatinine 8.4 H Estimated GFR 7 BUN/Creatinine Ratio 14 Glucose 168 H Calcium 8.4 Total Bilirubin 0.40 AST 35 ALT < 5 L Alkaline Phosphatase 126 Total Protein 7.7 Albumin 1.7 L Albumin/Globulin Ratio 0.3 Medications & Allergies - Medications Allergies/Adverse Reactions: Allergies No Known Allergies Allergy (Verified 04/26/19 03:55) Home Medications: Home Medications Medication Instructions Recorded Confirmed Last Taken Type Abiraterone Acetate (Nf) 1,000 mg PO DAILY 04/26/19 04/26/19 04/20/19 History B Complex 1 tab PO BID 04/26/19 04/26/19 Unknown History Cefepime 1 gram IV Q24H 04/26/19 04/26/19 Unknown History Flomax 0.4 mg PO DAILY 04/26/19 04/26/19 Unknown History Lactated Ringers 100 ml IV CONT 04/26/19 04/26/19 Unknown History Lidocaine 1 patch TD Q24H 04/26/19 04/26/19 Unknown History Metronidazole 500 mg IV Q8H 04/26/19 04/26/19 Unknown History Tylenol 650 mg PO PRN 04/26/19 04/26/19 Unknown History Tylenol 650 mg ND PRN 04/26/19 04/26/19 Unknown History Active Medications: Generic Name Dose Route Start Last Admin Trade Name Freq PRN Reason Stop Dose Admin Acetaminophen 650 mg 04/25/19 22:18 04/30/19 05:31 Tylenol PO 650 mg Q4H PRN Administration Pain MILD(1-3)/Fever >100.5/CARDENAS Albuterol/Ipratropium 1 ampul 04/29/19 20:00 04/29/19 21:28 Duoneb *Not For Prn Use* IH 1 ampul TIDRT FELIPE Administration Aspirin 300 mg 04/27/19 17:00 04/29/19 10:31 Aspirin ND 300 mg QDAY FELIPE Administration Atorvastatin Calcium 40 mg 04/27/19 22:00 04/29/19 21:36 Lipitor PO 40 mg QHS FELIPE Administration Dextrose 50 ml 04/25/19 22:18 D50w (25gm) Syringe IV Q30MIN PRN Hypoglycemia Protocol Cefepime HCl 1 gm in 100 mls @ 200 mls/hr 04/26/19 15:00 04/29/19 18:27 Cefepime/Ns 1 Gm/100 Ml IV 200 mls/hr Q24HR@1600 FELIPE Administration Protocol Metronidazole 500 mg in 100 mls @ 100 mls/hr 04/26/19 15:00 04/30/19 05:24 Flagyl 500 Mg/100 Ml IV 100 mls/hr Q8HR FELIPE Administration Dextrose/Sodium Chloride 1,000 mls @ 50 mls/hr 04/27/19 09:00 04/29/19 14:48 D5/0.45ns IV 100 mls/hr DIRECT FELIPE Administration Fluconazole 200 mg in 100 mls @ 100 mls/hr 04/28/19 14:00 04/29/19 16:52 Diflucan IV 100 mls/hr Q24H FELIPE Administration Protocol Magnesium Hydroxide 30 ml 04/25/19 22:18 Milk Of Magnesia PO Q4H PRN Constipation Morphine Sulfate 2 mg 04/25/19 22:18 04/30/19 02:08 Morphine IV 2 mg Q4H PRN Administration Pain, Moderate (4-6) Ondansetron HCl 4 mg 04/25/19 22:18 Zofran IV Q8H PRN Nausea And Vomiting Sodium Chloride 10 ml 04/26/19 10:00 04/29/19 21:36 Sodium Chloride Flush Syringe 10 Ml IV 10 ml BID FELIPE Administration Sodium Chloride 10 ml 04/25/19 22:18 Sodium Chloride Flush Syringe 10 Ml IV PRN PRN LINE FLUSH Tamsulosin HCl 0.4 mg 04/26/19 18:00 04/28/19 17:52 Flomax PO 0.4 mg QPM FELIPE Administration Vitamin B Complex/Vitamin C 1 each 04/26/19 22:00 04/29/19 21:36 Allbee With C PO 1 each BID FELIPE Administration
--- NOTE | 2019-04-30 08:08 | Progress Note ---
Assessment and Plan Assessment and plan: Patient is a 83-year-old male originally from [place] with history of dementia, advanced CKD had dialysis twice while in [place], metastatic prostate cancer, hypertension, failure to thrive was also on TPN while in [place] came in to the [facility] on 04/21/2019. Next day, family noticed hematuria and hence he was taken to [facility] and was hospitalized on 04/22/2019, transferred here on 04/25/2019 secondary to Enviromental crisis at [place] forcing the facility to transfer all inpatients. ID consulted for ?sepsis. cxr: 04/26/19 Chronic interstitial changes. Questionable left lung opacity as described. Suggestion of skin ulceration in the left axillary region, correlate with the patient. Consider further evaluation with CT chest with contrast if needed. CT chest: cavitory lesions, * Review of records from [place] shows that the patient had a 1.0 x 1.1 cm right thyroid nodule. There is also on imaging studies including CT of the chest multiple bilateral scattered ill-defined pulmonary nodules surrounded by groundglass opacities many of the nodules are cavitary component it was discussed that the findings were concerning for multifocal infection possibly secondary to septic emboli from cavitary organism including atypical and fungal organisms. * Work-up at [place] included vancomycin which was started on 04 22 with blood culture drawn prior to initiation of the antibiotics subsequently antibiotics was changed from Zosyn to cefepime and Flagyl on 04 22 due to renal function abnormalities. Patient remained n.p.o. for speech evaluation due to asp iration precautions and was placed on airborne precaution. * Creatinine was also noted to be elevated at 5.9 with prior creatinine being 2.6 in March 2019 there was concern of possible obstructive uropathy from prostate malignancy along with breathing renal versus ATN from poor p.o. intake. * Hematuria which was noted was thought to be secondary to prostate cancer * Elevated alk phos was also noted concerning for mets to the bone * He did have a previous right-sided PICC line that was removed in the setting of worsening leukocytosis and fever. The tip of the catheter had been growing coagulase-negative staph. This PICC line was initially placed secondary to TPN needs. Early on IV fluids here in our hospital. * Small focus of CVA noted on MRI BRAIN * Mild to moderate hydronephrosis on CT abdomen and pelvis, with presumed mestatic lesion * Although the history is hazy patient's son believes he had testicular removal surgery while in [place]. 04/30- increased wob persist, awaiting labs. Will consider BIPAP. Sepsis: POA- Continue abx therapy and ID input at this time Multiple cavitary lung nodules: ?septic emboli v/s infectious v/s mets vs TB. CVA Acute blood loss anemia of unknown etiology DM with Hyperglycemia Hypernatremia Hypokalemia Acute v/s subacute progressive encephalopathy: has baseline dementia. Leukocytosis Acute renal failure on CKD severe Metabolic Acidosis Obstructive uropathy Metastatic prostate cancer/Gross Hematuria Failure to thrive Bilateral hydronephrosis Severe protein calorie malnutrition Generalized body pain Plan Continue supportive care IVF per Nephrology Has fused 2 units packed red blood cell Discussed poor prognosis with son Pulmonary, ID May need to hold aspirin if hemoglobin continues to drop Discussed with dry sander today we will start patient on dialysis to see if he makes any improvement TB IGR pending Held tube feeds in the setting of possible aspiration continue empiric antibiotic, place patient about isolation Will follow AFB cultures from [place] Stop lidocain patch to see if patient will wake up Continue to monitor Information Technology Audit Manager consult-continue tube feed Pain control Will consult, Urology outpatient dvt/gi prophy Patient son verbalized understanding of patients critical condition and grave prognosis, wants to see how he does post nephrostomy tube Very poor prognosis History Interval history: Patient seen and examined, not responsive, very lethargic, glazed appearances, now with abdominal swelling and worsening shortness of breath. not following any commands. still very weak. S/P Bilateral Nephrostomy tube Hospitalist Physical - Physical exam Narrative exam: VITAL SIGNS: Reviewed. GENERAL: The patient appears chronically ill, encephalopathic, cachectic moans and groans., Vital signs as documented. HEAD: No signs of head trauma. temporal wasting noted EYES: Pupils are equal. Extraocular motions intact. EARS: Hearing grossly intact. MOUTH: Oropharynx is normal. NECK: No adenopathy, no JVD. CHEST: Chest with diminished breath sounds bilaterally. rapid, not on BiPAP no wheezes, rales, or rhonchi. CARDIAC: Regular rate and rhythm. S1 and S2, without murmurs, gallops, or rubs. VASCULAR: No Edema. Peripheral pulses normal and equal in all extremities. ABDOMEN: Soft, distended but nontender. [place], No rebound or guarding, and no masses palpated. Bowel Sounds normal. MUSCULOSKELETAL: Extremities without clubbing, cyanosis or edema. NEUROLOGIC EXAM: Disoriented, awake not following any commands. PSYCHIATRIC: unable to access SKIN: Warm to the touch, Mirza catheter in place, Bilateral Nephrostomy tube in place. detail exam as documented in skin assessment - Constitutional Vitals: Temp Pulse Resp BP Pulse Ox 102.4 F H 116 H 40 H 87/41 93 04/30/19 05:28 04/30/19 05:28 04/30/19 05:28 04/30/19 05:28 04/30/19 05:28 General appearance: Present: cachectic, other (not verbally responsive) Results - Labs CBC & Chem 7: 04/30/19 11:36 04/30/19 10:35 Labs: Laboratory Last Values WBC 14.7 K/mm3 (4.5-11.0) H 04/29/19 08:35 RBC 3.24 M/mm3 (3.65-5.03) L 04/29/19 08:35 Hgb 7.5 gm/dl (11.8-15.2) L 04/29/19 08:35 Hct 23.5 % (35.5-45.6) L 04/29/19 08:35 MCV 73 fl (84-94) L 04/29/19 08:35 MCH 23 pg (28-32) L 04/29/19 08:35 MCHC 32 % (32-34) 04/29/19 08:35 RDW 26.7 % (13.2-15.2) H 04/29/19 08:35 Plt Count 306 K/mm3 (140-440) 04/29/19 08:35 Lymph % (Auto) 7.7 % (13.4-35.0) L 04/28/19 10:27 [place] % (Auto) 6.3 % (0.0-7.3) 04/28/19 10:27 Eos % (Auto) 2.8 % (0.0-4.3) 04/28/19 10:27 Baso % (Auto) 0.6 % (0.0-1.8) 04/28/19 10:27 Lymph # 1.0 K/mm3 (1.2-5.4) L 04/28/19 10:27 [place] # 0.8 K/mm3 (0.0-0.8) 04/28/19 10:27 Eos # 0.4 K/mm3 (0.0-0.4) 04/28/19 10:27 Baso # 0.1 K/mm3 (0.0-0.1) 04/28/19 10:27 Add Manual Diff Complete 04/26/19 05:49 Total Counted 100 04/26/19 05:49 Seg Neutrophils % 82.6 % (40.0-70.0) H 04/28/19 10:27 Seg Neuts % (Manual) 83.0 % (40.0-70.0) H 04/26/19 05:49 Band Neutrophils % 0 % 04/26/19 05:49 Lymphocytes % (Manual) 11.0 % (13.4-35.0) L 04/26/19 05:49 Reactive Lymphs % (Man) 0 % 04/26/19 05:49 Monocytes % (Manual) 5.0 % (0.0-7.3) 04/26/19 05:49 Eosinophils % (Manual) 1.0 % (0.0-4.3) 04/26/19 05:49 Basophils % (Manual) 0 % (0.0-1.8) 04/26/19 05:49 Metamyelocytes % 0 % 04/26/19 05:49 Myelocytes % 0 % 04/26/19 05:49 Promyelocytes % 0 % 04/26/19 05:49 Blast Cells % 0 % 04/26/19 05:49 Nucleated RBC % Not Reportable 04/26/19 05:49 Seg Neutrophils # 10.8 K/mm3 (1.8-7.7) H 04/28/19 10:27 Seg Neutrophils # Man 13.5 K/mm3 (1.8-7.7) H 04/26/19 05:49 Band Neutrophils # 0.0 K/mm3 04/26/19 05:49 Lymphocytes # (Manual) 1.8 K/mm3 (1.2-5.4) 04/26/19 05:49 Abs React Lymphs (Man) 0.0 K/mm3 04/26/19 05:49 Monocytes # (Manual) 0.8 K/mm3 (0.0-0.8) 04/26/19 05:49 Eosinophils # (Manual) 0.2 K/mm3 (0.0-0.4) 04/26/19 05:49 Basophils # (Manual) 0.0 K/mm3 (0.0-0.1) 04/26/19 05:49 Metamyelocytes # 0.0 K/mm3 04/26/19 05:49 Myelocytes # 0.0 K/mm3 04/26/19 05:49 Promyelocytes # 0.0 K/mm3 04/26/19 05:49 Blast Cells # 0.0 K/mm3 04/26/19 05:49 WBC Morphology Not Reportable 04/26/19 05:49 Hypersegmented Neuts Not Reportable 04/26/19 05:49 Hyposegmented Neuts Not Reportable 04/26/19 05:49 Hypogranular Neuts Not Reportable 04/26/19 05:49 Smudge Cells Not Reportable 04/26/19 05:49 Toxic Granulation Not Reportable 04/26/19 05:49 Toxic Vacuolation Not Reportable 04/26/19 05:49 Dohle Bodies Not Reportable 04/26/19 05:49 Pelger-Huet Anomaly Not Reportable 04/26/19 05:49 Félix Rods Not Reportable 04/26/19 05:49 Platelet Estimate Consistent w auto 04/26/19 05:49 Clumped Platelets Not Reportable 04/26/19 05:49 Plt Clumps, EDTA Not Reportable 04/26/19 05:49 Large Platelets Not Reportable 04/26/19 05:49 Giant Platelets Not Reportable 04/26/19 05:49 Platelet Satelliting Not Reportable 04/26/19 05:49 Plt Morphology Comment Not Reportable 04/26/19 05:49 RBC Morphology Not Reportable 04/26/19 05:49 Dimorphic RBCs Not Reportable 04/26/19 05:49 Polychromasia Not Reportable 04/26/19 05:49 Hypochromasia 1+ 04/26/19 05:49 Poikilocytosis Not Reportable 04/26/19 05:49 Anisocytosis 3+ 04/26/19 05:49 Microcytosis 1+ 04/26/19 05:49 Macrocytosis Not Reportable 04/26/19 05:49 Spherocytes Not Reportable 04/26/19 05:49 Pappenheimer Bodies Not Reportable 04/26/19 05:49 Sickle Cells Not Reportable 04/26/19 05:49 Target Cells Rare 04/26/19 05:49 Tear Drop Cells Not Reportable 04/26/19 05:49 Ovalocytes Not Reportable 04/26/19 05:49 Helmet Cells Not Reportable 04/26/19 05:49 Williamson-Urania Bodies Not Reportable 04/26/19 05:49 [place] Rings Not Reportable 04/26/19 05:49 [place] Cells Not Reportable 04/26/19 05:49 Bite Cells Not Reportable 04/26/19 05:49 Crenated Cell Not Reportable 04/26/19 05:49 Elliptocytes Not Reportable 04/26/19 05:49 Acanthocytes (Spur) Not Reportable 04/26/19 05:49 Rouleaux Not Reportable 04/26/19 05:49 Hemoglobin C Crystals Not Reportable 04/26/19 05:49 Schistocytes Not Reportable 04/26/19 05:49 Malaria parasites Not Reportable 04/26/19 05:49 Tayo Bodies Not Reportable 04/26/19 05:49 Hem Pathologist Commnt No 04/26/19 05:49 PT 19.2 Sec. (12.2-14.9) H 04/26/19 05:49 INR 1.59 (0.87-1.13) H 04/26/19 05:49 APTT 39.2 Sec. (24.2-36.6) H 04/26/19 05:49 POC ABG pH 7.411 (7.35-7.45) 04/29/19 16:11 POC ABG pCO2 29.6 (35-45) L 04/29/19 16:11 POC ABG pO2 52 (80-105) L 04/29/19 16:11 POC ABG HCO3 18.8 (22-26 mml/L) 04/29/19 16:11 POC ABG Total CO2 20 (23-27mmol/L) 04/29/19 16:11 POC ABG O2 Sat 87 04/29/19 16:11 POC ABG Base Excess -6 ((-2) - (+3)mmol/L) 04/29/19 16:11 FiO2 32 % 04/29/19 16:11 Sodium 157 mmol/L (137-145) H 04/29/19 08:35 Potassium 4.7 mmol/L (3.6-5.0) D 04/29/19 08:35 Chloride 118.8 mmol/L (98-107) H 04/29/19 08:35 Carbon Dioxide 16 mmol/L (22-30) L 04/29/19 08:35 Anion Gap 27 mmol/L 04/29/19 08:35 BUN 121 mg/dL (9-20) H 04/29/19 08:35 Creatinine 8.4 mg/dL (0.8-1.5) H 04/29/19 08:35 Estimated GFR 7 ml/min 04/29/19 08:35 BUN/Creatinine Ratio 14 % 04/29/19 08:35 Glucose 168 mg/dL (75-100) H 04/29/19 08:35 POC Glucose 97 (70-105) 04/26/19 16:32 Calcium 8.4 mg/dL (8.4-10.2) 04/29/19 08:35 Total Bilirubin 0.40 mg/dL (0.1-1.2) 04/29/19 08:35 AST 35 units/L (5-40) 04/29/19 08:35 ALT < 5 units/L (7-56) L 04/29/19 08:35 Alkaline Phosphatase 126 units/L (35-129) 04/29/19 08:35 Total Protein 7.7 g/dL (6.3-8.2) 04/29/19 08:35 Albumin 1.7 g/dL (3.9-5) L 04/29/19 08:35 Albumin/Globulin Ratio 0.3 % 04/29/19 08:35 Random Vancomycin 27.3 ug/mL (0-40.0) 04/28/19 05:09 AFB Identification 04/27/19 09:50 Active Medications - Current Medications Current Medications: Generic Name Dose Route Start Last Admin Trade Name Freq PRN Reason Stop Dose Admin Acetaminophen 650 mg 04/25/19 22:18 04/30/19 05:31 Tylenol PO 650 mg Q4H PRN Administration Pain MILD(1-3)/Fever >100.5/CARDENAS Albuterol/Ipratropium 1 ampul 04/29/19 20:00 04/29/19 21:28 Duoneb *Not For Prn Use* IH 1 ampul TIDRT FELIPE Administration Aspirin 300 mg 04/27/19 17:00 04/29/19 10:31 Aspirin FL 300 mg QDAY FELIPE Administration Atorvastatin Calcium 40 mg 04/27/19 22:00 04/29/19 21:36 Lipitor PO 40 mg QHS FELIPE Administration Dextrose 50 ml 04/25/19 22:18 D50w (25gm) Syringe IV Q30MIN PRN Hypoglycemia Protocol Cefepime HCl 1 gm in 100 mls @ 200 mls/hr 04/26/19 15:00 04/29/19 18:27 Cefepime/Ns 1 Gm/100 Ml IV 200 mls/hr Q24HR@1600 FELIPE Administration Protocol Metronidazole 500 mg in 100 mls @ 100 mls/hr 04/26/19 15:00 04/30/19 05:24 Flagyl 500 Mg/100 Ml IV 100 mls/hr Q8HR FELIPE Administration Dextrose/Sodium Chloride 1,000 mls @ 50 mls/hr 04/27/19 09:00 04/29/19 14:48 D5/0.45ns IV 100 mls/hr DIRECT FELIPE Administration Fluconazole 200 mg in 100 mls @ 100 mls/hr 04/28/19 14:00 04/29/19 16:52 Diflucan IV 100 mls/hr Q24H FELIPE Administration Protocol Magnesium Hydroxide 30 ml 04/25/19 22:18 Milk Of Magnesia PO Q4H PRN Constipation Morphine Sulfate 2 mg 04/25/19 22:18 04/30/19 02:08 Morphine IV 2 mg Q4H PRN Administration Pain, Moderate (4-6) Ondansetron HCl 4 mg 04/25/19 22:18 Zofran IV Q8H PRN Nausea And Vomiting Sodium Chloride 10 ml 04/26/19 10:00 04/29/19 21:36 Sodium Chloride Flush Syringe 10 Ml IV 10 ml BID FELIPE Administration Sodium Chloride 10 ml 04/25/19 22:18 Sodium Chloride Flush Syringe 10 Ml IV PRN PRN LINE FLUSH Tamsulosin HCl 0.4 mg 04/26/19 18:00 04/28/19 17:52 Flomax PO 0.4 mg QPM FELIPE Administration Vitamin B Complex/Vitamin C 1 each 04/26/19 22:00 04/29/19 21:36 Allbee With C PO 1 each BID FELIPE Administration Nutrition/Malnutrition Assess - Dietary Evaluation Nutrition/Malnutrition Findings: Nutrition Notes Start: 04/26/19 10:4 3 Freq: Status: Active Protocol: Document 04/27/19 12:54 CT (Rec: 04/27/19 13:18 CT [id number]) Co-Sign 04/27/19 12:54 LM Nutrition Notes Need for Assessment generated from: MD Order Initial or Follow up Reassessment Current Diagnosis CKD(stage I-IV),Diabetes, Hypertension Other Pertinent Diagnosis prostate cancer, hematuria, arthritis, dementia, poss TB Current Diet NPO Labs/Tests Na 159 BUN 109 Cr 9.6 Pertinent Medications 1/2NSD5 100 ml/hr Flagyl Height 6 ft 3 in Weight 56.6 kg [place] Body Weight (kg) 89.09 BMI 15.5 Subjective/Other Information Consult for TF order. Pt getting a DH placed. Burn Absent Trauma Absent GI Symptoms None Current % PO Negligible Minimum of two criteria Yes Energy Intake (severe) < or equal to 50% Estimated Energy Requirement > or equal to 5 days Interpretation of Weight Loss (severe) >10% in 6 months Reduced Child Care Sitter Strength Measurably Reduced (severe) #1 Nutrition Diagnosis Malnutrition Diagnosis Progress(for reassessment Continues documentation) Is patient on ventilator? No Is Patient Ambulatory and/or Out of Bed No REE-([facility]-confined to bed) 1617.336 Kcal/Kg value to use for calculation 35 Approximate Energy Requirements Using 1981 kcal/Kg Calculation Used for Recommendations Kcal/kg Additional Notes Protein needs: 76-95g/kg/day ( 1.2-1.5 g/kg/day) Fluid needs: 1 ml/kcal/day Nutrition Intervention Change Diet Order: Initiate TF Nutrition Support: Jevity 1.2 at 70 ml/hr goal rate Flush 200 ml q4h to resolve hypernatremia, once resolved reduce to 100 ml q4h Kcal 2,016 Protein (gm) 93 Fluid (mL) 1,355 Add Supplement/Snack (indicate name/kcal d/c Ensure /protein ) Goal #1 Initiate TF Goal #2 Meet >75% of energy and protein needs via TF Anticipated Discharge Needs: unable to determine at this time Follow-Up By: 04/30/19 Additional Comments Follow up for TF initiation, TF at goal rate. - Malnutrition Assessment Minimum of two criteria: Yes - Attestation Statement I have reviewed and agreed w/ Malnutrition eval & tx plan: Yes
[2019-04-30] MEDS: IPRATROPIUM/ALBUTEROL SULFATE 3 ML AMPUL.NEB IH SCH ×2 (08:53→15:44)
[2019-04-30] MEDS: B COMPLEX W/VITAMIN C TAB PO SCH (09:46)
[2019-04-30] MEDS: ASPIRIN 300 MG RECT SUPP PR SCH (09:46)
[2019-04-30] MEDS: TAMSULOSIN 0.4 MG CAP PO SCH (09:47)
--- NOTE | 2019-04-30 10:59 | Consultation ---
HISTORY OF PRESENT ILLNESS: This 83-year-old black male seen on referral from [facility], presents to the hospital with altered mental status, electrolyte disturbance and kidney failure. I was being asked to see the patient for a second opinion regarding reviewing his MRI, determined issue of his stroke. From reviewing the MRI, he has extremely small inferior cerebellar infarct, this is minimal. Majority of the problem, however, is profound atrophy, which is somewhat expected given his age of 83. He has a slight enlargement of the ventricular system, but this is decompensated due to the atrophy. I did review over his features of his exam. He is hypomobile, does not speak, his eyes remain closed, he does not respond to verbal stimulation. He moves slightly, but seems semi-comatose. The patient does move all extremities, but he has obviously very poorly responsive state, probably related to metabolic encephalopathy since his creatinine is 9.5 with a BUN of 123. IMPRESSION AND PLAN: This patient has a very profound metabolic encephalopathy, but also has severe INSOLE AND OUTSOLE PREPARER degenerative disease given his age and other factors. Prognosis is not good. I think he is in end-stage renal disease and the final portions of this. I did carefully review his MRI to make sure that he does not have evidence of a prostate cancer metastasis. I discussed this with the family. I see no evidence of any metastatic lesions. The very small ischemic infarct in his cerebellum I think is possibly an incidental issue, certainly is not contributing to his overall presenting factors. At this point, the prognosis is very poor. I would recommend no code, given his age and other factors and level of uremic encephalopathy, which that would be reversible with such severe atrophy. Prognosis is not good. This was explained to the family that the issue of the stroke given its location is quite insignificant and quite peripheral to the general situation with age atrophy and the appearance of the renal failure with advanced dehydration. This issue is probably not correctable even with hydration and I think this is chronic given the fact that his hematocrit is 25. I do not think any degree of this is reversible and also in addition, his albumin is 1.9, which is not a very predictive of recovery. JOB# [id number] DERIC/DANG
--- NOTE | 2019-04-30 10:59 | Consultation ---
REFERRED BY: Dr. Fletcher. REASON FOR CONSULTATION: Prostate cancer. HISTORY OF PRESENT ILLNESS: I saw the patient, 83-year-old male from [place] on the medical floor. The patient has history of dementia, CKD, came from [facility] on 04/21/2019 and went to [facility], had hematuria. He also had history of hematuria. In [facility], he received dialysis and had TPN. At [facility], as per the notes, chest x-ray showed multiple cavitary lesions for both the ____. He was transferred to [facility]. Blood cultures were negative. Catheter tip, which was removed at [facility], showed coagulase-negative staph. The patient is unresponsive, nonverbal. He is moving his arms. He is in mitten restraint. No family members are available. Most of the information comes from medical records. I spoke to the Nephrology team and reviewed the notes of other physicians. As per the notes, there is a history of metastatic prostate cancer. Details not clear. Labs, PSA is not available. The patient also has a history of hypertension, failure to thrive. REVIEW OF SYSTEMS: Not reliable. PAST MEDICAL HISTORY: As above, diabetes and hypertension. SOCIAL HISTORY: Nil significant. FAMILY HISTORY: Not available. ALLERGIES: None. MEDICATIONS: Included pain medications. PHYSICAL EXAMINATION: VITAL SIGNS: Temperature 98, pulse 104, respiratory rate 24, BP 109/61. HEENT: Pallor present. Elderly male. Nonverbal. Mumbling. Opening the arms. No icterus. NECK: No neck lymph nodes. HEART: S1, S2. LUNGS: Decreased air entry. ABDOMEN: Soft. EXTREMITIES: Moving upper extremity. NEUROLOGIC: Not able to evaluate. LABORATORY DATA: White cell 15, hemoglobin 7.9, MCV 74, platelet 358. RBC count 3.4. Potassium 4.1, creatinine 9.6, calcium 9.1, bilirubin 0.5, alkaline phosphatase ____. RADIOLOGY: CT abdomen and pelvis was done and perfusion scan of the lung was done. Hydronephrosis was found. Mildly enlarged retroperitoneal lymph nodes were found. Blastic bone lesions were present. ASSESSMENT AND PLAN: 1. History of prostate cancer. Radiology mentions bone lesions. 2. History of lymph nodes. 3. Poor nutrition. 4. Infection ____ on dialysis. 5. Anemia. 6. Leukocytosis. 7. Low MCV. 8. Calcium is not elevated. 9. Alkaline phosphatase is slightly elevated. We will do a PSA and follow the patient. His overall performance status is not good. Multiple other physicians are following him. JOB# [id number] RITA/DANG
--- NOTE | 2019-04-30 11:05 | Progress Note ---
Assessment and Plan - Patient Problems (1) Acute kidney injury superimposed on chronic kidney disease Current Visit: Yes Status: Acute Plan to address problem: Acute on chronic kidney disease. Patient had bilateral hydronephrosis status post BX and has nephrostomy tubes. Kidney function however not improving significantly. Discussed with the family at bedside. Patient is a poor candidate for dialysis. Family however would like to do a trial. We'll follow up labs which are pending this morning. If no significant improvement in kidney function, we will initiate a trial of dialysis. Discussed with nurse to keep patient nothing by mouth for now while we await the results. (2) Adult failure to thrive Current Visit: Yes Status: Acute Plan to address problem: Enteral nutritional support. (3) Bilateral hydronephrosis Current Visit: Yes Status: Acute Plan to address problem: Status post percutaneous nephrostomies (4) Hematuria Current Visit: Yes Status: Acute Plan to address problem: Probably related to prostate cancer. We'll follow (5) Hypernatremia Current Visit: Yes Status: Acute Plan to address problem: Need to increase free water intake. Will increase IV fluids and follow-up sodium. Subjective Date of service: 04/30/19 Principal diagnosis: stage Iv prostate ca Interval history: Patient seen lying in bed. He is on BiPAP. Not verbalizing. Son at the bedside Objective - Exam Narrative Exam: Frail elderly -[place] male lying in bed on BiPAP HEENT: NCAT, on BiPAP Neck: Supple, no venous distention CVS: S1S2 RRR with no murmur, rub or gallop Chest: Clear to auscultation but breath sounds diminished bilaterally Abdomen: Scaphoid, hepatomegaly 3-4 cm below the right costal margin, soft, nontender, bowel sounds are present Extremities: No edema, muscle wasting Genitourinary Deferred Neuro: Lethargic, nonverbal, not following commands - Vital Signs Vital signs: Vital Signs - 12hr 04/29/19 04/30/19 04/30/19 23:53 03:00 03:12 Temperature 99.2 F Pulse Rate 129 H Respiratory 32 H Rate Blood Pressure 158/56 O2 Sat by Pulse 96 94 93 Oximetry 04/30/19 05:28 Temperature 102.4 F H Pulse Rate 116 H Respiratory 40 H Rate Blood Pressure 87/41 O2 Sat by Pulse 93 Oximetry - Lab 04/29/19 08:35 04/29/19 08:35 Most recent lab results Calcium 8.4 mg/dL (8.4-10.2) 04/29/19 08:35 Medications & Allergies - Medications Allergies/Adverse Reactions: Allergies No Known Allergies Allergy (Verified 04/26/19 03:55) Home Medications: Home Medications Medication Instructions Recorded Confirmed Last Taken Type Abiraterone Acetate (Nf) 1,000 mg PO DAILY 04/26/19 04/26/19 04/20/19 History B Complex 1 tab PO BID 04/26/19 04/26/19 Unknown History Cefepime 1 gram IV Q24H 04/26/19 04/26/19 Unknown History Flomax 0.4 mg PO DAILY 04/26/19 04/26/19 Unknown History Lactated Ringers 100 ml IV CONT 04/26/19 04/26/19 Unknown History Lidocaine 1 patch TD Q24H 04/26/19 04/26/19 Unknown History Metronidazole 500 mg IV Q8H 04/26/19 04/26/19 Unknown History Tylenol 650 mg PO PRN 04/26/19 04/26/19 Unknown History Tylenol 650 mg SD PRN 04/26/19 04/26/19 Unknown History Active Medications: Generic Name Dose Route Start Last Admin Trade Name Freq PRN Reason Stop Dose Admin Acetaminophen 650 mg 04/25/19 22:18 04/30/19 05:31 Tylenol PO 650 mg Q4H PRN Administration Pain MILD(1-3)/Fever >100.5/CARDENAS Albuterol/Ipratropium 1 ampul 04/29/19 20:00 04/30/19 08:53 Duoneb *Not For Prn Use* IH 1 ampul TIDRT FELIPE Administration Aspirin 300 mg 04/27/19 17:00 04/30/19 09:46 Aspirin SD 300 mg QDAY FELIPE Administration Atorvastatin Calcium 40 mg 04/27/19 22:00 04/29/19 21:36 Lipitor PO 40 mg QHS FELIPE Administration Dextrose 50 ml 04/25/19 22:18 D50w (25gm) Syringe IV Q30MIN PRN Hypoglycemia Protocol Cefepime HCl 1 gm in 100 mls @ 200 mls/hr 04/26/19 15:00 04/29/19 18:27 Cefepime/Ns 1 Gm/100 Ml IV 05/02/19 16:29 200 mls/hr Q24HR@1600 FELIPE Administration Protocol Dextrose/Sodium Chloride 1,000 mls @ 50 mls/hr 04/27/19 09:00 04/29/19 14:48 D5/0.45ns IV 100 mls/hr DIRECT FELIPE Administration Fluconazole 200 mg in 100 mls @ 100 mls/hr 04/28/19 14:00 04/29/19 16:52 Diflucan IV 100 mls/hr Q24H FELIPE Administration Protocol Magnesium Hydroxide 30 ml 04/25/19 22:18 Milk Of Magnesia PO Q4H PRN Constipation Morphine Sulfate 2 mg 04/25/19 22:18 04/30/19 02:08 Morphine IV 2 mg Q4H PRN Administration Pain, Moderate (4-6) Ondansetron HCl 4 mg 04/25/19 22:18 Zofran IV Q8H PRN Nausea And Vomiting Sodium Chloride 10 ml 04/26/19 10:00 04/30/19 09:46 Sodium Chloride Flush Syringe 10 Ml IV 10 ml BID FELIPE Administration Sodium Chloride 10 ml 04/25/19 22:18 Sodium Chloride Flush Syringe 10 Ml IV PRN PRN LINE FLUSH Tamsulosin HCl 0.4 mg 04/26/19 18:00 04/30/19 09:47 Flomax PO Not Given QPM FELIPE Vitamin B Complex/Vitamin C 1 each 04/26/19 22:00 04/30/19 09:46 Allbee With C PO 1 each BID FELIPE Administration
[2019-04-30 11:11] LABS: Mean Corpuscular HGB Conc 30 % (32-34); Mean Corpuscular Volume 77 fl (84-94); Platelet Count 243 K/mm3 (140-440); Red Blood Count 2.52 M/mm3 (3.65-5.03)
[2019-04-30 11:13] LABS: Red Cell Distribution Width 26.4 % (13.2-15.2)
[2019-04-30 11:20] LABS: Hemoglobin TNR gm/dl (11.8-15.2)
[2019-04-30 11:21] LABS: Hematocrit TNR % (35.5-45.6)
[2019-04-30 12:11] LABS: Hematocrit 19.8 % (35.5-45.6)
[2019-04-30] MEDS ORDERED: SODIUM CHLORIDE 0.9% 500 ML 500 ML IV NR (12:29)
--- NOTE | 2019-04-30 13:15 | Progress Note ---
Assessment and Plan Cultures at [place]: 04/22/2019 Blood culture: No growth 04/22/2019 fungal blood culture: No growth 04/23/2019 Blood culture: No growth 04/23/2019 catheter tip culture: 15 or more colonies of Staphylococcus hemolytic us 04/23/2019 urine culture: No growth 04/22/2019 serum cryptococcal antigen: Negative Cultures here: 04/26/2019 Blood culture: no growth 04/26/2019 urine from cath: Leticia albicans 04/26/2019 MRSA nasal culture: negative 04/27/2019 kidney / nephrostomy culture: Leticia albicans A/P: 83-year-old male originally from [facility] with history of dementia, advanced CKD had dialysis twice while in [facility], metastatic prostate cancer, hypertension, failure to thrive was also on TPN while in [facility] came in to the [facility] on 04/21/2019. Next day, family noticed hematuria and hence he was taken to [facility] and was hospitalized on 04/22/2019, transfered here on 04/25/2019. ID consulted for ?sepsis. 1) Multiple cavitary lung nodules: ?septic emboli v/s infectious v/s mets. Of note, patient had a TPN central line (R subclavian) which was removed while at [place], tip culture grew Staph hemolyticus. TTE at [place] unremarkable. Blood cultures also negative. 2) Acute v/s subacute progressive encephalopathy: has baseline dementia. Multifactorial. Sodium is high, creatinine also high. MRI showed subacute ischemia. 3) Leucocytosis: persistent, does not seem to have responded to broad spectrum antibiotic therapy. ?malignancy related. 4) Acute renal failure on CKD: ?component of obstructive uropathy as well as medical renal disease. Apparently was dialyzed twice in [facility]. Nephrology following. 5) Metastatic prostate cancer Recs: CT chest images reviewed, my suspicion for TB is quite low based on the b/l scattered cavitary nodules. Agree that septic emboli and possible mets are more likely. continue fluconazole to cover Leticia from nephrostomy continue IV Vancomycin for minimum 2-3 weeks (possible septic emboli to the lungs) continue airborne isolation f/u TB IGRA and AFB sputum x 3 v/s bronch specimen for AFB Given overall medical issues; will not overreact to fevers and white count. Will monitor for another day to see if trend develops. Cancer patients can have disease associated fevers and leukocytosis. Overall prognosis remains poor, hospice should be considered. Miriam Parker MD [facility] ([facility]) M: [phone] O: [phone] F: [phone] Subjective Date of service: 04/30/19 Principal diagnosis: stage Iv prostate ca Interval history: Febrile overnight with an increasing white count. Objective - Exam Narrative Exam: Constitutional: drowsy, non verbal. Cachexia + Head, Ears, Nose: Normocephalic, atraumatic. External ears, nose normal Eyes: Conjunctivae/corneas clear. No icterus. No ptosis. Neck: supple, no meningeal signs Oral: unable to examine Cardiovascular: S1, S2 normal Respiratory: Good air entry, clear to auscultation bilaterally GI: Soft, bowel sounds normal. No peritoneal signs. nephrostomy tubes + Musculoskeletal: No pedal edema, no cyanosis. Skin: No rash or abscess Hem/Lymphatic: No palpable cervical or supraclavicular nodes. No lymphangitis Psych: no agitation Neurological: drowsy, non verbal - Constitutional Vitals: Vital Signs Temp Pulse Resp BP Pulse Ox 102.4 F H 114 H 24 87/41 100 04/30/19 05:28 04/30/19 11:00 04/30/19 11:00 04/30/19 05:28 04/30/19 11:00 Temperature -Last 24 Hours Temperature 102.4 F Temperature 99.2 F Temperature 99.0 F - Labs CBC & Chem 7: 04/30/19 11:36 04/30/19 10:35 Labs: Abnormal lab results 04/29/19 04/30/19 04/30/19 Range/Units 16:11 10:35 10:35 WBC 16.9 H (4.5-11.0) K/mm3 RBC 2.52 L (3.65-5.03) M/mm3 Hgb (11.8-15.2) gm/dl Hct (35.5-45.6) % MCV 77 L (84-94) fl MCH 23 L (28-32) pg MCHC 30 L (32-34) % RDW 26.4 H (13.2-15.2) % POC ABG pCO2 29.6 L (35-45) POC ABG pO2 52 L (80-105) Sodium 155 H (137-145) mmol/L Chloride 118.7 H (98-107) mmol/L Carbon Dioxide 16 L (22-30) mmol/L BUN 122 H (9-20) mg/dL Creatinine 8.2 H (0.8-1.5) mg/dL Glucose 269 H (75-100) mg/dL Calcium 8.0 L (8.4-10.2) mg/dL 04/30/ Range/Units 11:36 WBC (4.5-11.0) K/mm3 RBC (3.65-5.03) M/mm3 Hgb 6.0 L (11.8-15.2) gm/dl Hct 19.8 L* (35.5-45.6) % MCV (84-94) fl MCH (28-32) pg MCHC (32-34) % RDW (13.2-15.2) % POC ABG pCO2 (35-45) POC ABG pO2 (80-105) Sodium (137-145) mmol/L Chloride (98-107) mmol/L Carbon Dioxide (22-30) mmol/L BUN (9-20) mg/dL Creatinine (0.8-1.5) mg/dL Glucose (75-100) mg/dL Calcium (8.4-10.2) mg/dL
--- NOTE | 2019-04-30 13:28 | XRay Report ---
ABDOMEN SUPINE PORTABLE HISTORY: abdominal distention. COMPARISON: 04/27/2019 FINDINGS: A feeding tube tip is identified more proximal in the stomach near the EG junction. The sto mach is also become greatly distended with air. Moderate distention of proximal small bowel. Gas in t he colon and rectum. No free air. Bilateral nephrostomy tubes. No radiopaque urinary stone disease. IMPRESSION: Marked gastric distention and proximal position of the feeding tube tip in the stomach ne ar the EG junction. No bowel obstruction. Signer Name: Gene Mancilla MD Signed: 04/30/2019 1:24 PM Workstation Name: [id number]
--- NOTE | 2019-04-30 13:42 | Progress Note ---
Assessment and Plan Pt is weak, presently on BiPAP. BiPAP settings: 15/7, rate 16, FiO2L 35%. O2 saturation 100%. Patients blood pressure running low. Recommend to start on vasopressors then transfer to ICU.Talked to the patients family, explained the patients critical condition. - Patient Problems (1) Septic embolism Current Visit: Yes Status: Acute Plan to address problem: Patient is on cefipime, diflucan, and flagyl. (2) Diabetes mellitus Current Visit: Yes Status: Acute Plan to address problem: Management as per primary team (3) Hypertension Current Visit: Yes Status: Acute Plan to address problem: Management as per primary team (4) Prostate cancer Current Visit: Yes Status: Acute Plan to address problem: Management as per oncology and urology (5) Acute kidney injury superimposed on chronic kidney disease Current Visit: Yes Status: Acute Plan to address problem: management as per nephrology Subjective Date of service: 04/30/19 Principal diagnosis: stage Iv prostate ca Interval history: Pt is weak, presently on BiPAP. BiPAP settings: 15/7, rate 16, FiO2L 35%. O2 saturation 100%. Patients blood pressure running low. Recommend to start on vasopressors then transfer to ICU.Talked to the patients family, explained the patients critical condition. Objective Vital Signs - 12hr 04/30/19 04/30/19 04/30/19 03:00 03:12 05:28 Temperature 102.4 F H Pulse Rate 116 H Pulse Rate [ Anterior Bilateral Throughout] Respiratory 40 H Rate Respiratory Rate [Anterior Bilateral Throughout] Blood Pressure 87/41 O2 Sat by Pulse 94 93 93 Oximetry 04/30/19 04/30/19 04/30/19 08:53 09:00 11:00 Temperature Pulse Rate 117 H 114 H Pulse Rate [ 115 H Anterior Bilateral Throughout] Respiratory 26 H 24 Rate Respiratory 28 H Rate [Anterior Bilateral Throughout] Blood Pressure O2 Sat by Pulse 99 99 100 Oximetry Constitutional: lethargic, other (hypotensive) Eyes: non-icteric ENT: oropharynx moist Neck: supple Effort: very labored Ascultation: Bilateral: rhonchi Cardiovascular: regular rate and rhythm Gastrointestinal: normoactive bowel sounds, non-distended Integumentary: normal Extremities: no cyanosis, no edema Neurologic: pupils equal and round Psychiatric: other (unable to asses due to neurological status) CBC and BMP: 04/30/19 11:36 04/30/19 10:35 ABG, PT/INR, D-dimer: ABG POC ABG pH 7.411 (7.35-7.45) 04/29/19 16:11 POC ABG pCO2 29.6 (35-45) L 04/29/19 16:11 POC ABG pO2 52 (80-105) L 04/29/19 16:11 POC ABG HCO3 18.8 (22-26 mml/L) 04/29/19 16:11 POC ABG Total CO2 20 (23-27mmol/L) 04/29/19 16:11 POC ABG O2 Sat 87 04/29/19 16:11 PT/INR, D-dimer PT 19.2 Sec. (12.2-14.9) H 04/26/19 05:49 INR 1.59 (0.87-1.13) H 04/26/19 05:49 Abnormal lab findings: Abnormal Labs 04/26/19 04/26/19 04/26/19 05:49 05:49 05:49 WBC 16.3 H RBC Hgb 8.8 L Hct 27.5 L MCV 74 L MCH 24 L MCHC RDW 26.5 H Lymph % (Auto) Lymph # Seg Neutrophils % Seg Neuts % (Manual) 83.0 H Lymphocytes % (Manual) 11.0 L Seg Neutrophils # Seg Neutrophils # Man 13.5 H PT 19.2 H INR 1.59 H APTT 39.2 H POC ABG pCO2 POC ABG pO2 Sodium 156 H Potassium 3.4 L Chloride 114.9 H Carbon Dioxide 14 L BUN 100 H Creatinine 7.7 H Glucose Calcium ALT Alkaline Phosphatase Albumin 04/27/19 04/27/19 04/28/19 05:02 05:02 10:27 WBC 15.0 H 13.0 H RBC 3.44 L 3.46 L Hgb 7.9 L 8.0 L Hct 25.4 L 25.2 L MCV 74 L 73 L MCH 23 L 23 L MCHC 31 L RDW 26.3 H 26.0 H Lymph % (Auto) 7.7 L Lymph # 1.0 L Seg Neutrophils % 82.6 H Seg Neuts % (Manual) Lymphocytes % (Manual) Seg Neutrophils # 10.8 H Seg Neutrophils # Man PT INR APTT POC ABG pCO2 POC ABG pO2 Sodium 159 H Potassium Chloride 122.3 H Carbon Dioxide 16 L BUN 109 H Creatinine 9.6 H Glucose Calcium ALT < 5 L Alkaline Phosphatase 139 H Albumin 2.3 L 04/28/19 04/29/19 04/29/19 10:27 08:35 08:35 WBC 14.7 H RBC 3.24 L Hgb 7.5 L Hct 23.5 L MCV 73 L MCH 23 L MCHC RDW 26.7 H Lymph % (Auto) Lymph # Seg Neutrophils % Seg Neuts % (Manual) Lymphocytes % (Manual) Seg Neutrophils # Seg Neutrophils # Man PT INR APTT POC ABG pCO2 POC ABG pO2 Sodium 155 H 157 H Potassium Chloride 118.0 H 118.8 H Carbon Dioxide 16 L 16 L BUN 123 H 121 H Creatinine 9.5 H 8.4 H Glucose 149 H 168 H Calcium 8.3 L ALT < 5 L < 5 L Alkaline Phosphatase Albumin 1.9 L 1.7 L 04/29/19 04/30/19 04/30/19 16:11 10:35 10:35 WBC 16.9 H RBC 2.52 L Hgb Hct MCV 77 L MCH 23 L MCHC 30 L RDW 26.4 H Lymph % (Auto) Lymph # Seg Neutrophils % Seg Neuts % (Manual) Lymphocytes % (Manual) Seg Neutrophils # Seg Neutrophils # Man PT INR APTT POC ABG pCO2 29.6 L POC ABG pO2 52 L Sodium 155 H Potassium Chloride 118.7 H Carbon Dioxide 16 L BUN 122 H Creatinine 8.2 H Glucose 269 H Calcium 8.0 L ALT Alkaline Phosphatase Albumin 04/30/19 11:36 WBC RBC Hgb 6.0 L Hct 19.8 L* MCV MCH MCHC RDW Lymph % (Auto) Lymph # Seg Neutrophils % Seg Neuts % (Manual) Lymphocytes % (Manual) Seg Neutrophils # Seg Neutrophils # Man PT INR APTT POC ABG pCO2 POC ABG pO2 Sodium Potassium Chloride Carbon Dioxide BUN Creatinine Glucose Calcium ALT Alkaline Phosphatase Albumin CT scan - chest: report reviewed, image reviewed Additional Studies: Cat scan of the chest 04/28/19 IMPRESSION: 1. Multiple cavitary pulmonary nodules which may represent septic emboli versus cavitary metastases. 2. Multiple sclerotic foci likely representing osseous metastases. 3. Interval development of focal right lower lobe pneumonia. Allied health notes reviewed: nursing
[2019-04-30] MEDS: D5W/0.45% NACL 1,000 ML IV SCH (14:30)
[2019-04-30] MEDS ORDERED: SODIUM BICARB 8.4% 50 MEQ/50 ML SYRINGE IV ONE (14:35)
[2019-04-30] MEDS ORDERED: EPINEPHrine 1:10,000 1 MG/10 ML SYRINGE ONE (14:35)
[2019-04-30] MEDS ORDERED: EPINEPHrine 30 MG/30 ML INJ IV ONE (14:35)
--- NOTE | 2019-04-30 14:57 | Vascular Lab Report ---
"DUPLEX DOPPLER ULTRASOUND CAROTID, BILATERAL INDICATION: CVA. FINDINGS: RIGHT CAROTID: Small amount of atherosclerotic plaque. Right ICA peak systolic velocity: 91 cm/sec. Right Vertebral Artery: Antegrade flow. LEFT CAROTID: Moderate amount of calcified atherosclerotic plaque. Left ICA peak systolic velocity: 91 cm/sec. Left Vertebral Artery: Antegrade flow. IMPRESSION: 1. Right Internal Carotid Artery: Less than 50% diameter stenosis. 2. Left Internal Carotid Artery: Less than 50% diameter stenosis. Velocity criteria are extrapolated from diameter data as defined by the Society of Radiologists in [facility] Consensus Conference, Radiology 2003; 229;340-346. Degree of Stenosis (%) || ICA PSV (cm/sec) || Plaque estimate (%) || ICA/CCA PSV Ratio Normal <125 None <2.0 <50 <125 <50 <2.0 50-69 125-230 50 2.0-4.0 70 but less than 100 >230 50 >4.0 Near occlusion High, low, or none visible variable Total occlusion None visible; no lumen N/A Signer Name: Drake Hoff MD Signed: 04/30/2019 2:52 PM Workstation Name: [id number]"
--- NOTE | 2019-04-30 15:06 | Event Note ---
Date: 04/30/19 I was asked to respond to CODE BLUE. Patient lost pulse. Patient is currently on BiPAP on my arrival. Patient was bagged with a Ambu bag. Respiratory therapist 2 sites. Patient has very rigid cervical spine and the patient very anterior. 2 attempts were made with direct rigid scope. It unsuccessful. Patient was easily bagged during the interval between these periods. There was a prolonged time outside to obtain a Adina. Using a blade #3 was able to intubate the patient with a 7.5 ET tube.
--- NOTE | 2019-04-30 15:11 | Event Note ---
Date: 04/30/19 Ephraim coby called as patient became hypoxic with nonpalpable pulse and no blood pressure. Patient underwent multiple rounds of epinephrine and 2 rounds of bicarb despite multiple measures after 20 minutes of active CPR establishment of airway family met the patient a DNR and requested that we stop chest compressions. Patient was pronounced 2:53 PM condolence was extended to the family.
--- NOTE | 2019-04-30 15:15 | Death Summary ---
Summary - Providers Date of service: 04/30/19 Consults: 04/26/19 08:34 Consult to Physician [CONS] Routine Comment: Consulting Provider: CLARE CORRIGAN Physician Instructions: Reason For Exam: sepsis 04/26/19 08:47 Consult to Physician [CONS] Routine Comment: Consulting Provider: [place] RUSSO Physician Instructions: Reason For Exam: CARYN 04/26/19 11:23 Speech Therapy Evaluation and Treat [CONS] Urgent Reason For Exam: Swallow eval difficulty swallowing 04/26/19 14:38 Consult to Physician [CONS] Routine Comment: Consulting Provider: JOSIAS RODRIGUEZ Physician Instructions: Reason For Exam: metastatic prostrate ca 04/26/19 14:40 Consult to Interventional Radiology [CONS] Routine Consulting Provider: AMBROCIO ELIZONDO Reason For Exam: eval for perc nephrostomy tube Place consult to:: dr. elizondo Notified:: office Phone number called:: [phone] Was contact made?: Yes If yes, spoke with:: dede Time called:: 17:47 04/26/19 17:34 Consult to Physician [CONS] Routine Comment: Consulting Provider: RADHA BROOKS Physician Instructions: Reason For Exam: possible TB 04/26/19 18:01 Consult to Dietitian/Nutrition [CONS] Routine Physician Instructions: Reason For Exam: Reason for Consult: Malnutrition 04/27/19 12:26 Consult to Dietitian/Nutrition [CONS] Routine Physician Instructions: Reason For Exam: Reason for Consult: Write/Manage Tube Feeding 04/27/19 15:26 Consult to Physician [CONS] Routine Comment: Consulting Provider: ADRIANNA ARMSTRONG Physician Instructions: Reason For Exam: possible stroke Attending: VERNON DARBY MD - summary Date of admission: 04/25/19 22:18 Date of : 04/30/19 Reason for admission: TRANSFER FROM [facility], ENCEPHALOAPATHY, CARYN, PULMONARY FAILURE Significant findings: Patient is a 83-year-old male originally from [place] with history of dementia, advanced CKD had dialysis twice while in [place], metastatic prostate cancer, hypertension, failure to thrive was also on TPN while in [place] came in to the [facility] on 04/21/2019. Next day, family noticed hematuria and hence he was taken to [facility] and was hospitalized on 04/22/2019, transferred here on 04/25/2019 secondary to Enviromental crisis at [facility] forcing the facility to transfer all inpatients. ID consulted for ?sepsis. cxr: 04/26/19 Chronic interstitial changes. Questionable left lung opacity as described. Suggestion of skin ulceration in the left axillary region, correlate with the patient. Consider further evaluation with CT chest with contrast if needed. CT chest: cavitory lesions, * Review of records from [facility] shows that the patient had a 1.0 x 1.1 cm right thyroid nodule. There is also on imaging studies including CT of the chest multiple bilateral scattered ill-defined pulmonary nodules surrounded by groundglass opacities many of the nodules are cavitary component it was discussed that the findings were concerning for multifocal infection possibly secondary to septic emboli from cavitary organism including atypical and fungal organisms. * Work-up at [facility] included vancomycin which was started on 04 22 with blood culture drawn prior to initiation of the antibiotics subsequently antibiotics was changed from Zosyn to cefepime and Flagyl on 04 22 due to renal function abnormalities. Patient remained n.p.o. for speech evaluation due to aspiration precautions and was placed on airborne precaution. * Creatinine was also noted to be elevated at 5.9 with prior creatinine being 2.6 in March 2019 there was concern of possible obstructive uropathy from prostate malignancy along with breathing renal versus ATN from poor p.o. intake. * Hematuria which was noted was thought to be secondary to prostate cancer * Elevated alk phos was also noted concerning for mets to the bone * He did have a previous right-sided PICC line that was removed in the setting of worsening leukocytosis and fever. The tip of the catheter had been growing coagulase-negative staph. This PICC line was initially placed secondary to TPN needs. Early on IV fluids here in our hospital. * Small focus of CVA noted on MRI BRAIN * Mild to moderate hydronephrosis on CT abdomen and pelvis, with presumed mestatic lesion * Although the history is hazy patient's son believes he had testicular removal surgery while in [place]. 04/30- increased wob persist, awaiting labs. PLACED ON BIPAP, PLANNED TO START DIALYSIS, FAMILY AWARE OF POOR PRGNOSIS 04/30-2:30 Patient rapidly deteriorated, CODE BLUE CALLED. FAMILY MADE DNR. Pt pronounced at 2:53 Sepsis: POA- Continue abx therapy and ID input at this time Multiple cavitary lung nodules: ?septic emboli v/s infectious v/s mets vs TB. CVA Acute blood loss anemia of unknown etiology DM with Hyperglycemia Hypernatremia Hypokalemia Acute v/s subacute progressive encephalopathy: has baseline dementia. Leukocytosis Acute renal failure on CKD secondary to hydronephritis Severe Metabolic Acidosis Obstructive uropathy Metastatic prostate cancer/Gross Hematuria Failure to thrive Bilateral hydronephrosis Severe protein calorie malnutrition Generalized body pain
== END 2019-04-30 19:20 | DRG 871 ==
LOC: 3A 21:48 → UNDOADMIN 21:48 → 3A 04-25 22:18
PROVIDERS: ADMIT Internal Medicine Geriatric Medicine; ATTEND Internal Medicine
PROC: 0T9330Z Drainage of Right Kidney Pelvis with Drainage Device, Percutaneous Approach (ICD-10-PCS; 2019-04-27)
PROC: 0T9130Z Drainage of Left Kidney with Drainage Device, Percutaneous Approach (ICD-10-PCS; 2019-04-27)
PROC: 4A033R1 Measurement of Arterial Saturation, Peripheral, Percutaneous Approach (ICD-10-PCS; principal; 2019-04-29)
PROC: 5A09357 Assistance with Respiratory Ventilation, Less than 24 Consecutive Hours, Continuous Positive Airway Pressure (ICD-10-PCS; 2019-04-30)
PROC: 5A12012 Performance of Cardiac Output, Single, Manual (ICD-10-PCS; 2019-04-30)
PROC: 0BH17EZ Insertion of Endotracheal Airway into Trachea, Via Natural or Artificial Opening (ICD-10-PCS; 2019-04-30)
DX: A41.9 Sepsis, unspecified organism (principal); E43 Unspecified severe protein-calorie malnutrition; I63.9 Cerebral infarction, unspecified; E87.0 Hyperosmolality and hypernatremia; D62 Acute posthemorrhagic anemia; E87.2 Acidosis; G93.49 Other encephalopathy; I76 Septic arterial embolism; N17.9 Acute kidney failure, unspecified; Z68.1 Body mass index [BMI] 19.9 or less, adult; E11.22 Type 2 diabetes mellitus with diabetic chronic kidney disease; I12.9 Hypertensive chronic kidney disease with stage 1 through stage 4 chronic kidney disease, or unspecified chronic kidney disease; N18.2 Chronic kidney disease, stage 2 (mild); R31.9 Hematuria, unspecified; F03.90 Unspecified dementia, unspecified severity, without behavioral disturbance, psychotic disturbance, mood disturbance, and anxiety; N13.9 Obstructive and reflux uropathy, unspecified; C61 Malignant neoplasm of prostate; R62.7 Adult failure to thrive; N32.0 Bladder-neck obstruction; E11.65 Type 2 diabetes mellitus with hyperglycemia; E87.6 Hypokalemia; Z66 Do not resuscitate; Z79.84 Long term (current) use of oral hypoglycemic drugs; Z79.899 Other long term (current) drug therapy
CPT/HCPCS: 36415; 36600; 50432; 70551; 71045; 71250; 74018; 74176; 78580; 80048; 80053; 80202; 82164; 82803; 82962; 84153; 85007; 85014; 85018; 85025; 85027; 85610; 85730; 87040; 87086; 87116; 88112; 88312; 93306; 93880; 94640; 94760; G0378; A9270-GY; A9540; C1729; C1751; C1769; J0171; J0692; J1450; J1644; J2250; J2270; J3010; J3370; J7030; J7050; J7120; Q9967